=== PATIENT | female | born 1965 | race Caucasian/White ===

== ENCOUNTER 2018-01-12 07:45 | Day surgery (SDC) | payer BC, SELFPAY ==
--- NOTE | 2018-01-12 | COLBX_PTH ---
PATIENT: KEYLA PATEL LOC: EN U#:[id number] AGE/SX: 52/F ROOM: RE01/12/[address]: Dr. Jesus Garcia MD : 1965 BED: DIS: 01/12/2018 SPEC #: [id number] RECD: 01/12/18 13:15 STATUS: VICKI YANY #: [id number] NADIA: 01/12/18 00:[address]: Jesus Garcia DEPT: SURGICAL PATHOLOGY RECD BY: Antolin Jaime ENTERED: 01/12/18 13:15 SP TYPE: COLON BX OT DR: Dr. Carlos Noguera DO Tissues: Cecum, NOS Procedures: Surgery Specimen Level IV HEADER OPERATION: Colonoscopy PRE-OP DIAGNOSIS: Rectal bleeding TISSUE SUBMITTED: Cecal biopsy MICROSCOPIC DIAGNOSIS Cecal biopsy: Fragments of tubular adenoma. SJ:ac 01/15/18 MICROSCOPIC DESCRIPTION Slides are reviewed. GROSS DESCRIPTION Received in fixative is one container labeled with the patient's name and designated cecal biopsy. The specimen consists of multiple irregular fragments of light elder soft tissue that in aggregate measure 1.5 x 0.5 x 0.1 cm. The specimen is totally submitted in one cassette. / SJ:ac 01/12/18 TC:1 CPT: 35741
[2018-01-12 08:04] VITALS: BP 134/82; PULSE 97; RESP 16; TEMP 36.8; O2SAT 93; BMI 27.7
[2018-01-12 09:42] VITALS: BP 134/82; BP 134/84; PULSE 88; RESP 18; TEMP 36.6; O2SAT 98
[2018-01-12 09:45] VITALS: BP 128/78; BP 134/82; PULSE 88; RESP 18; O2SAT 97
--- NOTE | 2018-01-12 09:46 | OP.ENDO_ITS ---
Patient Name: Delmis Damon Procedure Date: 01/12/2018 9:07 AM Date of : 1965 Age: 52 Procedure: Colonoscopy Indications: Rectal bleeding Providers: Jesus Garcia MD Referring MD: Jesus Garcia MD Medicines: See the Anesthesia note for documentation of the administered medications Patient Profile: Last Colonoscopy: February 2013. Complications: No immediate complications. Procedure: Pre-Anesthesia Assessment: - Prior to the procedure, a History and Physical was performed, and patient medications and allergies were reviewed. The patient's tolerance of previous anesthesia was also reviewed. The risks and benefits of the procedure and the sedation options and risks were discussed with the patient. All questions were answered, and informed consent was obtained. Prior Anticoagulants: The patient has taken no previous anticoagulant or antiplatelet agents. ASA Grade Assessment: II - A patient with mild systemic disease. After reviewing the risks and benefits, the patient was deemed in satisfactory condition to undergo the procedure. - Prior to the procedure, a History and Physical was performed, and patient medications and allergies were reviewed. The patient's tolerance of previous anesthesia was also reviewed. The risks and benefits of the procedure and the sedation options and risks were discussed with the patient. All questions were answered, and informed consent was obtained. Prior Anticoagulants: The patient has taken no previous anticoagulant or antiplatelet agents. ASA Grade Assessment: II - A patient with mild systemic disease. After reviewing the risks and benefits, the patient was deemed in satisfactory condition to undergo the procedure. After I obtained informed consent, the scope was passed under direct vision. Throughout the procedure, the patient's blood pressure, pulse, and oxygen saturations were monitored continuously. The colonoscope was introduced through the anus and advanced to the cecum, identified by appendiceal orifice and ileocecal valve. The colonoscopy was technically difficult and complex due to a tortuous colon. Successful completion of the procedure was aided by applying abdominal pressure. The patient tolerated the procedure well. The quality of the bowel preparation was adequate to identify polyps. Scope In: 9:19:16 AM Scope Withdrawal Time 0 hours 10 minutes 15 seconds Scope Out: 9:35:53 AM Total Procedure Duration Time 0 hours 16 minutes 37 seconds Findings: The digital rectal exam findings include non-thrombosed external hemorrhoids, non-thrombosed internal hemorrhoids and internal hemorrhoids that prolapse with straining, but require manual replacement into the anal canal (Grade III). A localized area of moderately nodular mucosa was found in the cecum. Biopsies were taken with a cold forceps for histology. Many diverticula were found in the sigmoid colon. Impression: - Non-thrombosed external hemorrhoids, non-thrombosed internal hemorrhoids and internal hemorrhoids that prolapse with straining, but require manual replacement into the anal canal (Grade III) found on digital rectal exam. - Nodular mucosa in the cecum. Biopsied. - Diverticulosis in the sigmoid colon. Recommendation: - Discharge patient to home. - Resume previous diet. - Repeat colonoscopy in 1 year for surveillance based on pathology results. - Return to my office in 1 week. - Continue present medications. Procedure Code(s): --- Professional --- 67707, Colonoscopy, flexible; with biopsy, single or multiple Diagnosis Code(s): --- Professional --- K64.2, Third degree hemorrhoids K64.4, Residual hemorrhoidal skin tags K63.89, Other specified diseases of intestine K62.5, Hemorrhage of anus and rectum K57.30, Diverticulosis of large intestine without perforation or abscess without bleeding CPT copyright 2017 [employer]. All rights reserved. The codes documented in this report are preliminary and upon motorcycle designer review may be revised to meet current compliance requirements. Jesus Garcia MD 01/12/2018 9:46:18 AM This report has been signed electronically. Number of Addenda: 0 Note Initiated On: 01/12/2018 9:07 AM
[2018-01-12 09:50] VITALS: BP 128/78; BP 134/82; PULSE 81; RESP 18; O2SAT 96
[2018-01-12 09:58] VITALS: BP 130/84; BP 134/82; PULSE 88; RESP 18; TEMP 36.7; O2SAT 98
[2018-01-12 10:09] VITALS: BP 134/82
== END 2018-01-12 10:17 | disposition home or self-care (01) ==
LOC: EN 07:46 → AC 08:33
PROVIDERS: Family Provider Family Medicine; PCP Family Medicine; Visit Provider Surgery
PROC: 0DJD8ZZ Inspection of Lower Intestinal Tract, Via Natural or Artificial Opening Endoscopic (ICD-10-PCS; CPT 45378; principal; 2018-01-12 08:40)
DX: D12.0 Benign neoplasm of cecum (principal); K62.5 Hemorrhage of anus and rectum; K64.2 Third degree hemorrhoids; K64.4 Residual hemorrhoidal skin tags; K63.89 Other specified diseases of intestine; K57.30 Diverticulosis of large intestine without perforation or abscess without bleeding
CPT/HCPCS: 45380; 88305; J7120

== ENCOUNTER 2018-02-05 08:54 | Inpatient (IN) | payer BC, SELFPAY ==
[2018-01-29 11:27] VITALS: BP 139/91; PULSE 97; RESP 16; TEMP 36.4; O2SAT 96; BMI 28.5
--- NOTE | 2018-01-29 11:32 | SDCEKG_ITS ---
Test Reason : Blood Pressure : / mmHG Vent. Rate : 079 BPM Atrial Rate : 079 BPM P-R Int : 156 ms QRS Dur : 088 ms QT Int : 348 ms P-R-T Axes : 045 005 018 degrees QTc Int : 399 ms Sinus rhythm with marked sinus arrhythmia Possible Left atrial enlargement Nonspecific T wave abnormality Poor R wave progression Abnormal ECG Confirmed by OLENA ELENA, BARB ([id number]), associate entertainment editor JOSE LOCKHART ([id number]) on 02/01/2018 11:34:22 AM Referred By: Jesus Garcia Confirmed By:BARB HYATT MD
[2018-01-29 12:03] LABS: Hematocrit 41.1 % (37-47); Mean Corp Hgb Conc 31.6 g/gl (32-36); Mean Corpuscular Hgb 29.5 pg (27.0-32.0); Mean Corpuscular Volume 93.4 fL (81-99); Mean Platelet Vol. 11.3 fl (6.2-12.0); Platelet Count 292 K/mm3 (150-450); RBC Distribution Width CV 13.8 % (11.6-14.6); RBC Distribution Width SD 45.8 fl (35.1-43.9); Scan Indicated on CBC? Y/N NO; White Blood Count 6.2 K/mm3 (4.4-11.0)
[2018-01-29 12:28] LABS: Anion Gap 7 (5-15); BUN 22 mg/dL (7-18); BUN/Creat Ratio 30.1 RATIO (10-20); Chloride 110 mmol/L (98-107); Creatinine, Serum 0.73 mg/dL (0.55-1.02); EST Glomerular Filtration Rate 88 mL/min (>60); Est Glom Filt Rate - Afr Amer 106 mL/min (>60); Estimated Creatinine Clearance 82.47 ml/min; Glucose 91 mg/dL (74-106); Potassium 4.2 mmol/L (3.5-5.1); Sodium Level 143 mmol/L (136-145)
[2018-02-05] VITALS (11 sets, daily range): BP systolic 117–157; BP diastolic 73–101; PULSE 82–106; RESP 16–18; TEMP 36.5–37.6; O2SAT 95–100; BMI 28.5
--- NOTE | 2018-02-05 | COL_PTH ---
PATIENT: KEYLA PATEL LOC: MS2 U#:[id number] AGE/SX: 52/F ROOM: MS210 RE02/05/[address]: Dr. Jesus Garcia MD : 1965 BED: 1 DIS: 02/06/2018 SPEC #: [id number] RECD: 02/05/18 12:12 STATUS: VICKI REGio #: [id number] NADIA: 02/05/18 00:[address]: Jesus Garcia DEPT: SURGICAL PATHOLOGY RECD BY: Denise Cuevas ENTERED: 02/05/18 14:27 SP TYPE: COLON OTHR DR: Dr. Carlos Noguera, DO Tissues: A - Right colon B - TISSUE SURGICALLY REMOVED Procedures: Surgery Specimen Level III Surgery Specimen Level V HEADER OPERATION: Laparoscopic right hemicolectomy PRE-OP DIAGNOSIS: Non-colonoscopic resectable polyp of colon TISSUE SUBMITTED: A - Right colon sent fresh to lab for evaluation at 1207, B - Staple line MICROSCOPIC DIAGNOSIS A. Right colon, hemicolectomy: Tubular adenomas, multiple (nine), largest measuring 2.5 cm in greatest dimension. 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 Seven pericolonic lymph nodes, no pathologic diagnosis. Appendix - pigment laden macrophages consistent with melanosis coli. B. Staple line: Colonic tissue with pigment laden macrophages consistent with melanosis coli. Small intestinal mucosa, no pathologic diagnosis. SJ:ac 02/07/18 MICROSCOPIC DESCRIPTION Slides are reviewed. GROSS DESCRIPTION A - Received fresh for intraoperative consultation labeled with the patient's name is a specimen designated right colon. The specimen consists of a right hemicolectomy specimen consisting of cecum with ascending colon with attached adipose tissue, segment of small intestine and appendix. The cecum with ascending colon measures 12.5 cm in length. The small intestine measures 6.5 cm in length and appendix measures 8 cm in length and 0.5 cm in diameter. Both resection margins are stapled. The lumen shows multiple sessile polyps. The largest polyp is in the cecum and measures 2.5 x 1 cm. This information is conveyed to the surgeon intraoperatively. The most distal polyp is 5.5 cm away from the distal resection margin. The mucosa shows brownish discoloration. Sections of the appendix reveal pinpoint lumen. Smaller polyps measure 0.3 to 1.5 cm in greatest dimension. The polyp appears to be mucosal in location. Sections of the pericolonic adipose tissue reveal multiple lymph nodes. The largest lymph node measures 1 cm in greatest dimension. Weapons Specialist sections are submitted as follows: 1 - appendix, 2 - proximal and distal resection margins, 3 & 4 - largest polyp, 5 - one polyp adjacent to the largest polyp in the cecum, 6 - one bisected polyp, 7 - multiple polyps (possible five), 8 - most distal polyp, 9 - graphic art sales representative section of small, large intestine and ileocecal valve, 10 - multiple lymph nodes, 11 - one serially sectioned lymph node, 12 - one bisected lymph node. / ADRIAN:ac 02/06/18 B - Received in fixative is one container labeled with the patient's name and designated staple line. The specimen consists of a donut-shaped piece of bowel tissue measuring 4 x 1 x 1 cm. A few sutures are noted. Weapons Specialist sections are submitted in one cassette. / ADRIAN:ac 02/05/18 TC:1 CPT: 41580, 77249, 19259
[2018-02-05] MEDS: Gabapentin 600 MG Tablet PO (09:23)
[2018-02-05] MEDS: Acetaminophen 500 MG Tablet 1000 MG PO ×3 (09:23→23:53)
[2018-02-05 09:41] LABS: Bedside Glucose 206 mg/dL (70-110)
[2018-02-05] MEDS: Insulin Lispro 100 UNIT/ML INSULN.PEN SC (10:14)
[2018-02-05] MEDS: Lidocaine/D5W 2,000 MG/250 ML IV.SOLN 24.03 MG IV (10:50)
--- NOTE | 2018-02-05 10:54 | DCINST_ITS ---
<Jesus Garcia - Last Filed: 02/05/18 10:54> Discharge Diet: Light diet - advance as tolerated - if you have questions about your diet instructions, please talk to you doctor. Discharge Activity: May Not Drive - for 1 week or while taking narcotic pain medicine. May shower in (days): 1 Lifting Restrictions: 10 pounds Call your doctor if your incision/area has: Continuous Slow Oozing, Sudden Increased Bleeding, Increased Pain/ Swelling, Increased Redness, Foul Smelling Discharge Call your doctor if you observe: Fever of 101 or Higher Suture Line Care: Avoid Pulling/Pushing, Avoid Pinching/Bending Additional Dressing/Incision Instructions:: Change or remove dressing in 4 days. Leave steri-strips in place for 1 week. Allergies/Adverse Reactions: Allergies No Known Allergies Allergy (Verified 01/09/18 11:27) Medications to take at Discharge amitriptyline 10 mg tablet 10 mg PO QHS 03/28/17 cyclobenzaprine 10 mg tablet 10 mg PO ONCE PRN tab 03/28/17 duloxetine 60 mg capsule,delayed release 120 mg PO QDAY cap 03/28/17 eszopiclone 2 mg tablet 2 mg PO QHS 03/28/17 meloxicam 15 mg tablet 15 mg PO DAILY 03/28/17 Docusate Sodium [Stool Softener] 200 mg PO BID 04/06/17 Gabapentin [Neurontin] 300 mg PO TID 01/29/18 Omeprazole [Prilosec] 20 mg PO BID 01/29/18 Oxycodone [Oxyir] 5 mg PO Q6H PRN PRN 3 Days #10 tablet 02/06/18 The following prescriptions were given: Oxycodone [Oxyir] 5 mg PO Q6H PRN PRN 3 Days #10 tablet PRN Reason: Mod-Severe Pain (4-10/10) Primary Care Physician: Carlos Noguera DO [Primary Care Provider] - Test Results: Test results from this visit will be discussed in further detail at your follow- up appointment, if applicable. Please Follow Up With: Jesus Garcia MD - [phone] When: Call to make an appointment to be seen in about 10 days. <Sonja Christy - Last Filed: 02/06/18 15:48> Discharge Diet: Light diet - advance as tolerated - Transitional diet as instructed Test Results: Test results from this visit will be discussed in further detail at your follow- up appointment, if applicable.
[2018-02-05] MEDS: Bupivacaine 0.5% PF 10 ML VIAL (13:17)
[2018-02-05] MEDS: BUPIVACAINE LIPOSOME/PF 20 ML VIAL OPERA.SITE (13:23)
--- NOTE | 2018-02-05 13:25 | PCM.OPRPT ---
Problem List (1) Polyp of cecum Status: Acute Report of Operation Date of Procedure: 02/05/18 Pre-Operative Diagnosis: Non-endoscopically resectable cecal polyps Post-Operative Diagnosis: Same Surgery/Procedure Performed:: Laparoscopic right colectomy Description of Surgical Findings:: Timeout informed consent was obtained. 52-year-old female was taken the operative room. She was placed supine on the table. She underwent general endotracheal intubation anesthesia. The abdomen prepped and draped. Throughout the procedure Exparel diluted with 60 cc of saline was used for a bilateral tap block. 0.25% Marcaine was additionally used as local anesthetic. A supraumbilical vertical incision was created. Sharp dissection carried down through the subcutaneous tissue direct access was gained through the peritoneum 10mm trocar inserted. The abdomen was insufflated with CO2 to pressure of 10 mmHg pressure. 5-minute trochars were placed in the epigastrium and in the right lower quadrant. Inspection revealed abundant adhesions of the right colon to the infrahepatic liver secondary to previous laparoscopic cholecystectomy. There were adhesions of omentum to the right anterior anterior abdominal wall. These adhesions were transected using Harmonic. Then the ileocolonic vessels were addressed. Dissection was performed in that location placed in the ileocolic vessels on stretch I did that with harmonic scalpel. I then identified the vessels I secured them twice proximally and once distally with extra-large Hem-o-ashley clips. I then transected them with the harmonic scalpel at high setting. I then completely elevated the ascending colon by incising along the white line of Toldt. I had to aggressively free the proximal transverse colon from the undersurface of the liver. And so doing the duodenal sweep was identified. I had the entire hepatic flexure freed and mobile. I then put a noncrushing grasper from the cecum. I lengthened the supraumbilical incision to allow for placement of a small wound protector. I exited the bowel at that point. I completed the transection of the terminal ileum and distal ascending colon mesentery with a normal scalpel. I used a SEVERO-75 stapler to transect the terminal ileum and the transverse colon. I placed him in a [id number] fashion secured that with interrupted 4-0 silk created enterotomies inserted the SEVERO-75 stapler and performed a [id number]-[id number] anastomosis. I then performed a stapled enterotomy closure with a TA 60. There was some question as to the validity that staple line appeared to be intact I reinforced it at one end where there was a small defect in the mucosa with a running inverting 3-0 chromic. I then inverted the entire staple line with a running 4-0 silk Lembert suture. I placed a piece of omentum overlying and used interrupted 4-0 silk as a patch of omentum over top the anastomotic area. It all appeared to be viable and intact. Both the small bowel and the large bowel quite unremarkable. During the enterotomy that was very minimal soilage which could be aspirated free. The bowel was placed back within the abdomen and night reinsufflated taking great care to look at the anastomosis that appeared to be nicely intact. I then performed a bilateral tap block using the Exparel 20 cc mixed with 60 cc of saline and then I added the remainder of the 0.25% Marcaine. A bilateral tap block was carefully performed under laparoscopic visualization. I then reinspected the colon. Excess fluid was irrigated and aspirated free. Blood loss was minimal and there was no bleeding. Trochars removed under visualization and the abdomen was allowed to deflate of CO2. The abdomen was redraped gowns and gloves were changed. The midline wound was closed with a running #1 PDS. Wound edges were approximated interrupted and running septic or 4-0 Monocryl. Steri-Strips Telfa OpSite dressings applied. Sponge and instrument and needle counts were reported to the surgeon to be correct. Specimen includes right colon. Pathology demonstrated the polyps to be present. Drains none. Blood loss minimal. The patient was taken to the recovery area in satisfactory condition without apparent complication Jesus Garcia M.D., F.A.C.S. Type of Anesthesia:: General Anesthesiologist: Orly Aguero
[2018-02-05 14:25] LABS: Bedside Glucose 143 mg/dL (70-110)
[2018-02-05 15:01] LABS: Absolute Lymphocyte Count 0.76 X10^3/ul (0.83-4.51); Absolute Neutrophil Count 11.3 X10^3/uL (2.0-7.7); Basophil# 0.02 X10^3/uL; Basophil% 0.2 % (0-1); Eosinophil# 0.02 X10^3/uL; Eosinophils% 0.2 % (0-5); Hematocrit 42.2 % (37-47); Hemoglobin 13.5 g/dl (12.0-15.0); Lymphocyte # 0.76 X10^3/ul (4.0); Lymphocyte % 6.1 % (19-41); Mean Corpuscular Hgb 29.7 pg (27.0-32.0); Mean Corpuscular Volume 92.7 fL (81-99); Mean Platelet Vol. 11.5 fl (6.2-12.0); Monocyte# 0.31 X10^3/uL; Monocyte% 2.5 % (0-10); Neutrophil # 11.28 X10^3/uL (2.7-7.7); Neutrophil % 90.8 % (47-70); Platelet Count 288 K/mm3 (150-450); RBC Distribution Width CV 13.8 % (11.6-14.6); RBC Distribution Width SD 45.7 fl (35.1-43.9); Red Blood Count 4.55 M/mm3 (4.2-5.4); White Blood Count 12.4 K/mm3 (4.4-11.0)
[2018-02-05 15:12] LABS: POSITIVE COUNT NO; POSITIVE DIFFERENTIAL NO; POSITIVE MORPHOLOGY NO
[2018-02-05] MEDS: HYDROmorphone 0.5 MG/0.5 ML SYRINGE IV (16:54)
[2018-02-05] MEDS: Gabapentin 300 MG Capsule PO ×2 (18:32→22:04)
[2018-02-05] MEDS: oxyCODONE 5 MG Tablet PO (18:34)
[2018-02-05] MEDS: Ketorolac 15 MG/ML Vial IV (20:18)
[2018-02-05] MEDS: Zolpidem Tartrate 5 MG Tablet PO (22:04)
[2018-02-05] MEDS: Docusate Sodium 100 MG Capsule PO (22:04)
[2018-02-05] MEDS: Amitriptyline 10 MG Tablet PO (22:04)
[2018-02-05] MEDS: Pantoprazole Sodium 20 MG Tablet PO (22:05)
[2018-02-05] MEDS: Mag Hydrox/Al Hydrox/Simeth 30 ML UDC PO (22:34)
[2018-02-05] MEDS: Lactated Ringers 1,000 ML 40 ML IV (23:15)
[2018-02-06 01:45] VITALS: BP 126/82; PULSE 100; RESP 18; TEMP 36.3; O2SAT 96
[2018-02-06] MEDS: Ketorolac 15 MG/ML Vial IV ×3 (01:47→14:21)
[2018-02-06 05:35] LABS: Hematocrit 39.3 % (37-47); Hemoglobin 12.4 g/dl (12.0-15.0); Mean Corp Hgb Conc 31.6 g/gl (32-36); Mean Corpuscular Hgb 29.9 pg (27.0-32.0); Mean Corpuscular Volume 94.7 fL (81-99); Platelet Count 248 K/mm3 (150-450); RBC Distribution Width CV 13.8 % (11.6-14.6); RBC Distribution Width SD 45.5 fl (35.1-43.9); Red Blood Count 4.15 M/mm3 (4.2-5.4); White Blood Count 7.4 K/mm3 (4.4-11.0)
--- NOTE | 2018-02-06 05:45 | PCM.PN.SRG ---
Patient Problems: Active and Suspected Problems (Last Reviewed 01/02/18 @ 14:57 by Sulma Marinelli) Polyp of cecum (Acute) Subjective: Heartburn, no flatus, no nausea, more comfortable - Physical Exam Lungs: Clear to auscultation Abdomen: Soft, Bowel Sounds Not Present, Distended Vital Signs Temp Pulse Resp BP Pulse Ox 97.4 F L 100 18 126/82 H 96 02/06/18 01:45 02/06/18 01:45 02/06/18 01:45 02/06/18 01:45 02/06/18 01:45 Oxygen Flow Rate (L/min) 3 Oxygen Delivery Method Nasal Cannula Weight: 176 lb 9.444 oz Body Mass Index (BMI) 28.5 Finger Stick Blood Glucose 143 Intake and Output for Last 24 Hours 02/04/18 02/05/18 02/06/18 23:59 23:59 23:59 Intake Total 400 / 400 1115 / 1115 Balance 400 / 400 1115 / 1115 Laboratory Tests Past 24 Hrs 02/05/18 02/06/18 02/06/18 14:32 05:05 05:05 WBC 12.4 H Pending RBC 4.55 Pending Hgb 13.5 Pending Hct 42.2 Pending MCV 92.7 Pending MCH 29.7 Pending MCHC 32.0 Pending RDW 13.8 Pending RDW Differential 45.7 H Pending Plt Count 288 Pending MPV 11.5 Immature Gran % (Auto) 0.200 Neut % (Auto) 90.8 H Lymph % (Auto) 6.1 L Evangeline % (Auto) 2.5 Eos % (Auto) 0.2 Baso % (Auto) 0.2 Absolute Neuts (auto) 11.3 H Absolute Lymphs (auto) 0.76 L Total Counted Not Reportable Sodium Pending Potassium Pending Chloride Pending Carbon Dioxide Pending Anion Gap Pending BUN Pending Creatinine Pending Est GFR (MDRD) Af Amer Pending Est GFR (MDRD) Non-Af Pending BUN/Creatinine Ratio Pending Glucose Pending Calcium Pending POC Glucose 02/05/18 02/05/18 14:20 09:17 POC Glucose 143 H 206 H Medical Necessity - Tobacco Use Smoking Status: Former smoker Assessment/Plan All Active Problems (Last Reviewed 01/02/18 @ 14:57 by Sulma Duran Polyp of cecum (Acute) Rectal bleeding (Acute) Ladd esophagus (Acute) GERD with esophagitis (Acute) Dysuria (Acute) Neuralgia (Acute) Lumbar disc disorder (Acute) Neck pain (Acute) Osteoarthritis (Acute) Tarsal tunnel syndrome (Acute) Hypokalemia (Acute) Hx of tubal ligation (Acute) S/P partial hysterectomy (Acute) History of surgical removal of ganglion cyst (Acute) History of esophagogastroduodenoscopy (EGD) (Acute) S/P cholecystectomy (Acute) History of back surgery (Acute) S/P colonoscopy (Acute) Hx of spinal fusion (Acute) Need to mobilize Steady progress
[2018-02-06 05:51] LABS: Anion Gap 6 (5-15); BUN 15 mg/dL (7-18); BUN/Creat Ratio 13.5 RATIO (10-20); Calcium,Total 8.2 mg/dL (8.5-10.1); Chloride 101 mmol/L (98-107); Creatinine, Serum 1.11 mg/dL (0.55-1.02); EST Glomerular Filtration Rate 54 mL/min (>60); Est Glom Filt Rate - Afr Amer 66 mL/min (>60); Estimated Creatinine Clearance 54.24 ml/min; Glucose 113 mg/dL (74-106); Potassium 3.8 mmol/L (3.5-5.1); Sodium Level 139 mmol/L (136-145)
[2018-02-06] MEDS: Lactated Ringers 1,000 ML 40 ML IV (05:56)
[2018-02-06] MEDS: Mag Hydrox/Al Hydrox/Simeth 30 ML UDC PO (05:57)
[2018-02-06] MEDS: oxyCODONE 5 MG Tablet PO ×3 (05:57→18:37)
[2018-02-06] MEDS: Acetaminophen 500 MG Tablet 1000 MG PO ×3 (05:57→18:38)
[2018-02-06] MEDS: Gabapentin 300 MG Capsule PO ×2 (05:57→14:21)
[2018-02-06 06:25] LABS: Scan Indicated on CBC? Y/N NO
[2018-02-06 08:00] VITALS: BP 132/76; PULSE 103; RESP 16; TEMP 36.6; O2SAT 95
[2018-02-06 08:30] VITALS: O2SAT 95
[2018-02-06] MEDS: Docusate Sodium 100 MG Capsule PO (10:38)
[2018-02-06] MEDS: DULoxetine Hcl 60 MG Capsule 120 MG PO (10:38)
[2018-02-06] MEDS: Enoxaparin 40 MG/0.4 ML Syringe SC (10:39)
[2018-02-06] MEDS: Pantoprazole Sodium 20 MG Tablet PO (10:39)
--- NOTE | 2018-02-06 13:16 | CASEMGMT ---
RN CM Assessment. PCP: Dr. Noguera Pharmacy: [facility] Living arrangements: Home with her DME: none DC Plan: home on dc.
[2018-02-06 14:22] VITALS: BP 121/71; PULSE 89; RESP 16; TEMP 36.8; O2SAT 99
[2018-02-06 15:03] VITALS: BP 128/74; PULSE 82; RESP 16; TEMP 36.7; O2SAT 96
[2018-02-06 18:30] VITALS: BP 124/67; PULSE 88; RESP 16; TEMP 36.7; O2SAT 97
== END 2018-02-06 18:51 | disposition home or self-care (01) | DRG 331 ==
PROVIDERS: Admitting Provider Surgery; Family Provider Family Medicine; PCP Family Medicine; Referring Provider Surgery; Visit Provider Surgery
PROC: 0DTF4ZZ Resection of Right Large Intestine, Percutaneous Endoscopic Approach (ICD-10-PCS; CPT 44205; principal; 2018-02-05 10:40)
DX: D12.0 Benign neoplasm of cecum (principal); Z23 Encounter for immunization
CPT/HCPCS: 36415; 80048; 82962; 85025; 85027; 88304; 88305; 88307; 93005; 94762; J7050; J7120; 90686; A4216; J2405

== ENCOUNTER 2022-09-16 13:21 | Emergency (ER) | payer MEDICARE, SELFPAY ==
[2022-09-16 13:23] VITALS: BP 151/83; PULSE 76; RESP 16; TEMP 36.7; O2SAT 98; BMI 18.1
[2022-09-16 13:31] VITALS: O2SAT 96
--- NOTE | 2022-09-16 13:37 | CT_ITS ---
STUDY: CT ABDOMEN AND PELVIS WITH CONTRAST REASON FOR EXAM: Female, 57 years old. Nausea, vomiting, night sweats, guarding. PARTIAL HYSTER,JETT RADIATION DOSAGE (If Supplied By Facility): CTDIvol = ( 15.21 ) mGy, DLP = ( 1121.40 ) mGycm TECHNIQUE: Transaxial images were obtained from the dome of the diaphragm to the symphysis pubis without oral contrast. IV 100mL Isovue-370 was administered. Sagittal and coronal images were reconstructed. Individualized dose optimization techniques were used for this CT. COMPARISON: Comparison is made with prior study dated September 18, 2012. FINDINGS: The visualized lung bases are unremarkable. The visualized portions of the heart are within normal limits. There is decreased attenuation of the liver consistent with steatosis. 2.6 cm x 1.5 cm cyst in the peripheral lateral aspect of the posterior right lobe of the liver. There are surgical clips in the gallbladder fossa consistent with a prior cholecystectomy. Normal spleen. Normal pancreas. Normal bilateral adrenal glands. Normal right kidney. Normal left kidney. There is a moderate-sized hiatal hernia composed mostly of the fundus of the stomach. Normal small intestine. The patient is status post partial right hemicolectomy. The anastomosis is unremarkable. Scattered sigmoid diverticula. There is non-visualization of the appendix. There is scattered atherosclerotic calcification of the abdominal aorta, without a demonstrated aneurysm. Normal inferior vena cava. Normal retroperitoneum. Normal urinary bladder. There is absence of the uterus consistent with a prior hysterectomy. Normal abdominal wall. Exaggerated lumbar lordosis. Laminectomy and fusion at the L3-L4 L4-L5 and L5-S1 levels. Irregular inferior endplate of the L5 vertebrae. CT/Abdomen/Pelvis W IV Cont ONLY IMPRESSION: Diffuse fatty infiltration. Status post cholecystectomy. Partial right hemicolectomy. Electronically Signed: Jose Luis Cohen MD at 14:30 EDT ,
--- NOTE | 2022-09-16 13:40 | EDS_ITS ---
HPI History of Present Illness Chief Complaint: Nausea/Vomiting Detail of Chief Complaint: Abdominal pain with nausea and vomiting Informant: patient and spouse/S.O. Onset/Context/Timing Onset: Today (Nausea and vomiting started today) Context: Sudden Onset Timing: Continuous Quality: Pain Location: Predominantly upper abdomen Current Severity: Mild Maximum Severity: Severe Worsened by: Palpation Relieved by: Nothing Associated Symptoms Associated Symptoms: Diaphoresis Narrative Narrative: Patient is a 57-year-old woman who underwent a right colectomy due to nonresectable cecal polyp [place] [address] Jesus Garcia. She recently has had night sweats. She denies weight loss or weight gain. She denies increased abdominal girth. She denies intolerance to greasy or fried foods. She is status post cholecystectomy. She denies black or maroon-colored stool. Last bowel movement was yesterday. She denies change in color, consistency or calib er of her stool. She states she is scheduled for an outpatient CAT scan because of concern for renal tumors. Patient denies headache, visual, ocular auditory symptoms. Patient denies cardiac or respiratory symptoms. Patient's had colonoscopy and right hemicolectomy with Dr. Waters. He has had back surgery for fusion. Also status post bilateral tubal ligation Prior similar symptoms: No Recent Illness/Hospitalization: Yes [facility] Medical History (Updated 09/16/22 @ 14:[address] Lowell Caballero MD) Ladd esophagus Ladd's esophagus Chiari malformation Dysuria GERD with esophagitis History of fibromyalgia History of IBS Hypokalemia Internal hemorrhoids Lumbar disc disorder Neck pain Neuralgia Osteoarthritis Rectal bleeding Tarsal tunnel syndrome Home Medications amitriptyline 10 mg tablet 10 mg PO QHS sleep 03/28/17 [History Last Taken Unknown] cyclobenzaprine 10 mg tablet 10 mg PO ONCE PRN arthritis 03/28/17 [History Last Taken Unknown] duloxetine 60 mg capsule,delayed release 120 mg PO QDAY depression/pain 03/28/17 [History Last Taken Unknown] eszopiclone 2 mg tablet 2 mg PO QHS sleep 03/28/17 [History Last Taken Unknown] meloxicam 15 mg tablet 15 mg PO DAILY pain 03/28/17 [History Last Taken ] docusate sodium 50 mg capsule 200 mg PO BID stool softner 04/06/17 [History Last Taken Unknown] gabapentin 300 mg capsule 300 mg PO TID pain 01/29/18 [History Last Taken Unknown] omeprazole 20 mg capsule,delayed release 20 mg PO BID gerd 01/29/18 [History Last Taken 02/05/18 08:00] ondansetron 4 mg disintegrating tablet 4 mg PO Q8H PRN PRN Nausea #10 tabs 09/16/22 [Rx Last Taken Unknown] Allergy/AdvReac Type Severity Reaction Status Date / Time No Known Allergies Allergy Verified 09/16/22 13:28 Family History Mother Hypertension Father Degeneration of intervertebral disc Hypertension Surgical History (Updated 09/16/22 @ 14:[address] Lowell Caballero MD) History of back surgery History of esophagogastroduodenoscopy (EGD) History of surgical removal of ganglion cyst Hx of spinal fusion Hx of tubal ligation S/P cholecystectomy S/P colonoscopy S/P partial hysterectomy Social History (Updated 09/16/22 @ 13:[address] Lowell Caballero MD) household members: spouse Smoking Status: Former smoker quit status: considering quitting alcohol intake: current alcohol intake frequency: a few times a week substance use type: does not use caffeine: Yes what type of physical activity do you participate in: walking and weight training frequency: 1-2 times per week seatbelt use: always ROS ROS ED Constitutional Constitutional ED: Reports sweats; Denies chills, fever(s), subjective or weight loss Eyes Eyes: Denies blurry vision, change in vision or diplopia ENT ENT ED: Denies ear pain, rhinorrhea or sore throat Cardiovascular Cardiovascular: Denies chest pain or palpitations Respiratory/Chest Respiratory/Chest: Denies cough, dyspnea or dyspnea on exertion Gastrointestinal Gastrointestinal: Reports abdominal pain, nausea and vomiting; Denies constipation, diarrhea or melena Genitourinary Genitourinary ED: Denies dysuria, hematuria or urinary frequency Musculoskeletal Musculoskeletal: Denies arthralgias, back pain, myalgias or neck pain Integumentary Denies rash Neurologic Neurologic: Denies headache(s) or paresthesias Psychiatric Psychiatric: Denies anxiety or depression Endocrine Endocrinology: Denies cold intolerance, heat intolerance, polydipsia or polyuria Hematologic/Lymphatic Hematologic/Lymphatic: Reports systems reviewed and no addt'l complaints, except as documented EXAM Physical Exam Const Vital Signs: 09/16/22 13:23 09/16/22 13:31 09/16/22 14:29 Temperature 98.1 F Temperature Source Oral Pulse Rate 76 72 Respiratory Rate 16 14 Respiratory Effort Short of Breath Respiratory Depth Normal Respiratory Pattern Normal Blood Pressure 151/83 H 172/90 H Blood Pressure Mean 105 117 Pulse Ox 98 97 Oxygen Delivery Method Room Air Room Air 09/16/22 14:30 Temperature Temperature Source Pulse Rate Respiratory Rate Respiratory Effort Respiratory Depth Respiratory Pattern Blood Pressure 146/94 H Blood Pressure Mean 111 Pulse Ox Oxygen Delivery Method Positive well nourished, well developed and obese Constitutional Narrative: There is acral cyanosis/cyanosis of her feet. Capillary refill is delayed. There is a palpable DP pulse. Patient appears pale. She is in obvious discomfort. General Appearance ED: well developed, diaphoretic and pallor; Negative for NAD Nutritional Appearance: obese HEENT Reports dry mucous membranes HEENT Narrative: Head is atraumatic and normocephalic. Ears are normal. Nares are patent. Posterior pharynx unremarkable. Mouth ED: Yes dry mucous membranes Mouth: dry mucous membranes Eyes PERRL and EOMs intact bilaterally General Eye ED: Negative for pale conjunctiva or scleral icterus Neck no lymphadenopathy, supple and no JVD Chest Wall inspection of chest normal and palpation of chest normal Resp normal respiratory effort and clear to auscultation bilaterally Cardio regular rate, regular rhythm, S1 normal heart sound, S2 normal heart sound and no murmurs GI no masses; Negative for non-tender, non-distended or hepatosplenomegaly Auscultation: hypoactive bowel sounds Palpation: tender other (Diffuse least tender is left lower quadrant.) and guarding LUQ and RUQ; Negative for splenomegaly, mass or rebound tenderness present Back/Spine no CVA tenderness Back/Spine Narrative: Well-healed midline surgical scar noted. Extremity Negative for normal to inspection Extremity Narrative: Cyanosis of the feet with delayed capillary refill. Patient denies claudication symptoms. General Extremety ED: Negative for edema or tenderness General Extremity: Negative for edema Neuro oriented x3, CN's II-XII intact bilaterally and no sensory deficits noted Sensorium / Orientation: alert Psych mental status grossly normal Skin no rashes or lesions noted, no wounds and No skin turgor normal Skin Narrative: Diaphoretic. General Skin Exam: pallor; Negative for jaundice MDM MDM MDM Narrative Medical decision making narrative: Prior records authored by Dr. Waters and surgical physician teacher assistant were reviewed. Patient polyp was not malignant. There is no blood work available through [facility] since 2017. Since patient appears in discomfort with nausea and vomiting CT of the abdomen and pelvis was ordered with IV contrast. She was treated with Zofran and morphine for her nausea/vomiting and pain. Appropriate blood work was obtained to assess H&H white count differential. Renal function prior to CT with IV contrast as well as electrolytes and anion gap. Since she has significant tenderness in the upper quadrants hepatic and lipase was ordered as well. History & Record Review Additional record(s) reviewed:: Prior inpatient record, Prior outpatient record, Prior ED visit and Prior labs (Patient had blood work through [facility] on August 26. AST ALT and alk phos were elevated. CBC was unremarkable. BUN and creatinine were normal with a creatinine of 0.82.) Lab Data Attestation: I reviewed the patient's lab results. Lab results narrative: BMP is remarkable for elevated BUN to creatinine ratio of 23:1. BUN is 24 with a creatinine of 1.02 and GFR 59. AST ALT and alk phos are elevated which they were a month ago. Lipase is normal. CBC is pending. CAT scan is pending. ([id number]) Labs: Laboratory Results - last 24 hr 09/16/22 13:50 Sodium 141 Potassium 4.1 Chloride 108 H Carbon Dioxide 28.0 Anion Gap 5 BUN 24 H Creatinine 1.02 Estim Creat Clear Calc 47.81 Est GFR (MDRD) Af Amer 71 Est GFR (MDRD) Non-Af 59 L BUN/Creatinine Ratio 23.5 H Glucose 102 Calcium 9.5 Total Bilirubin 0.60 Direct Bilirubin 0.16 AST 62 H ALT 92 H Alkaline Phosphatase 158 H Total Protein 7.9 Albumin 3.9 Globulin 4.0 Lipase 27 Radiography Diagnostic Testing: Clinical Impression(s) from Imaging Studies Abdomen/Pelvis CT 09/16/22 13:37 IMPRESSION: Diffuse fatty infiltration. Status post cholecystectomy. Partial right hemicolectomy. Electronically Signed: Jose Luis Cohen MD at 14:30 EDT , Treatment and Re-Evaluation :: Patient was reassessed and informed of her laboratory results. Patient is no longer diaphoretic or pale. There is no cyanosis of her feet. She is no longer vomiting. Patient was told there are no tumors in her kidney. The reason her liver enzymes were elevated/are elevated is because of fatty liver. Discharge Plan Triage Chief Complaint: Nausea/Vomiting Other Complaint: Shortness of Breath ED Provider: oLwell Caballero Dx/Rx/DC Orders Clinical Impression: Acute generalized abdominal pain, Nausea & vomiting, Fatty liver, Elevated liver transaminase level, Status post right hemicolectomy Instructions: Nonalcoholic Fatty Liver ..., ED Vomiting (Adult) Prescriptions: New ondansetron [ondansetron] 4 mg tablet,disintegrating 4 mg PO Q8H PRN PRN (Reason: Nausea) Qty: 10 0RF No Action amitriptyline 10 mg tablet 10 mg PO QHS cyclobenzaprine 10 mg tablet 10 mg PO ONCE PRN (Reason: arthritis) duloxetine 60 mg capsule,delayed release(DR/EC) 120 mg PO QDAY eszopiclone 2 mg tablet 2 mg PO QHS meloxicam 15 mg tablet 15 mg PO DAILY docusate sodium 50 MG capsule 200 mg PO BID gabapentin 300 MG capsule 300 mg PO TID omeprazole 20 MG capsule 20 mg PO BID Primary Care Provider: Jesus Whiting Referrals: Jesus Whiting DO [Primary Care Provider] - 3-5 Days Disposition Disposition: Home, Self Care
[2022-09-16] MEDS: Ondansetron 4 MG/2 ML Vial IV (13:48)
[2022-09-16] MEDS: 0.9% Normal Saline 1,000 ML 1000 ML IV (13:48)
[2022-09-16] MEDS: Morphine 4 MG/ML Syringe IV (13:48)
[2022-09-16 14:19] LABS: AST(SGOT) 62 U/L (15-37); Alanine Aminotransfer ALT/SGPT 92 U/L (13-56); Albumin, Serum 3.9 g/dL (3.2-5.0); Alkaline Phosphatase 158 U/L (45-117); Anion Gap 5 (5-15); BUN 24 mg/dL (7-18); BUN/Creat Ratio 23.5 RATIO (10-20); Bilirubin, Direct 0.16 mg/dL (0.00-0.30); Calcium,Total 9.5 mg/dL (8.5-10.1); Chloride 108 mmol/L (98-107); Creatinine, Serum 1.02 mg/dL (0.55-1.02); EST Glomerular Filtration Rate 59 mL/min (>60); Est Glom Filt Rate - Afr Amer 71 mL/min (>60); Estimated Creatinine Clearance 47.81 ml/min; Glucose 102 mg/dL (74-106); Lipase 27 U/L (13-75); Potassium 4.1 mmol/L (3.5-5.1); Protein, Total 7.9 g/dL (6.4-8.2); Sodium Level 141 mmol/L (136-145)
[2022-09-16 14:29] VITALS: BP 172/90; PULSE 72; RESP 14; O2SAT 97
[2022-09-16 14:30] VITALS: BP 146/94
[2022-09-16 14:44] LABS: Lactic Acid 1.4 mmol/L (0.4-1.9)
== END 2022-09-16 15:09 | disposition home or self-care (01) ==
PROVIDERS: Emergency Provider Emergency Medicine; PCP Preventive Medicine Occupational Medicine; Visit Provider Emergency Medicine
DX: R11.2 Nausea with vomiting, unspecified (principal); R74.01 Elevation of levels of liver transaminase levels; K76.0 Fatty (change of) liver, not elsewhere classified; Z87.891 Personal history of nicotine dependence; K21.00 Gastro-esophageal reflux disease with esophagitis, without bleeding; Z90.49 Acquired absence of other specified parts of digestive tract; R10.84 Generalized abdominal pain; M19.90 Unspecified osteoarthritis, unspecified site; Z79.899 Other long term (current) drug therapy; Z90.710 Acquired absence of both cervix and uterus
CPT/HCPCS: 74177; 80048; 80076; 83605; 83690; 96361; 96374; 96375; 99285; J7030; Q9967; J2405

== ENCOUNTER 2024-12-08 10:30 | Emergency (ER) | payer MEDICARE, SELFPAY ==
[2024-12-08 10:31] VITALS: BP 153/94; PULSE 108; RESP 18; TEMP 36.6; O2SAT 99
--- NOTE | 2024-12-08 10:43 | RAD_ITS ---
PROCEDURE: HIP, UNI W/ PELVIS 2-3 VIEWS 12/08/2024 REASON FOR EXAM: FALL TECHNIQUE: HIP, UNI W/ PELVIS 2-3 VIEWS Laterality: Left COMPARISON: None FINDINGS: Bones: No demonstrated fracture or suspicious osseous lesion Joints: Well-preserved Soft tissues: Unremarkable Other: Surgical hardware in the lower lumbar spine and sacrum free of complication RAD/HIP, UNI W/ Pelvis 2-3 Views IMPRESSION: No acute abnormalities Reading Location: [id number]
--- NOTE | 2024-12-08 10:43 | RAD_ITS ---
EXAM: Left lower leg CLINICAL HISTORY: Pain TECHNIQUE: Two views of the left lower leg FINDINGS: No fracture or dislocation RAD/Tibia & Fibula 2 Views IMPRESSION: Negative left lower leg Reading Location[facility]
--- NOTE | 2024-12-08 10:43 | RAD_ITS ---
PROCEDURE: FOOT MIN 3 VIEWS 12/08/2024 REASON FOR EXAM: FALL TECHNIQUE: FOOT MIN 3 VIEWS Laterality: Left FINDINGS: No fracture, dislocation or significant arthropathy RAD/Foot min 3 Views IMPRESSION: Negative left foot Reading Location[facility]
--- NOTE | 2024-12-08 10:43 | RAD_ITS ---
PROCEDURE: ANKLE MIN 3 VIEWS 12/08/2024 REASON FOR EXAM: FALL TECHNIQUE: ANKLE MIN 3 VIEWS Laterality: Left FINDINGS: Three views of the left ankle demonstrate no fracture or dislocation RAD/Ankle min 3 Views IMPRESSION: Negative left ankle Reading Location[facility]
--- NOTE | 2024-12-08 10:43 | CT_ITS ---
PROCEDURE: SPINE LUMBAR WITHOUT CONTRAST 12/08/2024 REASON FOR EXAM: FALL, HX OF BACK SURGERIES TECHNIQUE: SPINE LUMBAR WITHOUT CONTRAST Coronal and Sagittal reconstruction series were provided. One or more dose reduction techniques were used (e.g., Automated exposure control, adjustment of the mA and/or kV according to patient size, use of iterative reconstruction technique RADIATION DOSE SUMMARY: CTDlvol: 16.5 mGy DLP: 558 mGycm FINDINGS: Posterior fusion at L5-S1 with interbody fusion and a component of anterior fusion with grade 1 subluxation. Interbody fusion at L3-4 and L4-5 with posterior pedicle screws at L3-4 on the left side. No evidence of the loosening at L3-4. There is lucency around the left L5 pedicle screw which could indicate loosening at that level. There is no acute compression deformity. There is no retroperitoneal mass. T12-L1 unremarkable. L1-L2 demonstrates dorsal decompression without recurrent spinal stenosis. Dorsal decompression at L2-3 without recurrent pathology. At L3-4 no central spinal stenosis or foraminal compression. At L4-5 dorsal decompression without recurrent central stenosis. No soft tissue windows are supplied. There is moderate to severe bilateral L4 foraminal stenosis with potential nerve root impingement. At L5-S1, no central stenosis but severe bilateral L5 foraminal narrowing CT/Spine Lumbar without Contrast IMPRESSION: 1. Extensive lower lumbar fusion as discussed above. 2. Possible loosening of the left L5 pedicle screw. 3. Significant bilateral L4 and L5 foraminal stenosis with potential nerve root impingement. Reading Location: [facility]
--- NOTE | 2024-12-08 10:44 | EDS_ITS ---
HPI History of Present Illness Chief Complaint: Lower Extremity Injury Narrative Narrative: Patient is a 59-year-old female with a past medical history of GERD with esophagitis, Ladd's esophagus, multiple back surgeries, IBS, fibromyalgia, Chiari malformation who presents to the emergency department chief complaint of left leg pain and generalized weakness. Patient states that she has had multiple back surgeries and follows with Dr. Zhao. She states that she is scheduled to see him again to have further discussion about another back surgery as she has another failing disc. Patient notes that about 3 days ago she fell in the bathtub landing on her left side. She states that she has noted that she has pain in her left leg from her foot up her leg. States that the pain is not from her back down her lower extremity. Patient denies any history of IV drug use, states that she drinks 2 glasses of wine nightly and has never gone through alcohol withdrawal. She states that she just feels weak in her lower extremities that she might fall. States that she went to a football game yesterday and was able to walk without significant difficulty. States that she has not had to use any assistive devices such as walker or cane [facility] Medical History (Updated 12/08/24 @ 13:[address] Chilango Crews, DO) Rectal bleeding Ladd esophagus GERD with esophagitis Dysuria Neuralgia Lumbar disc disorder Neck pain Osteoarthritis Tarsal tunnel syndrome Hypokalemia History of IBS Internal hemorrhoids History of fibromyalgia Chiari malformation Ladd's esophagus Home Medications ?Medication ?Instructions ?Recorded ?Last Taken ?Type amitriptyline 10 mg tablet 10 mg PO QHS sleep 03/28/17 Unknown History cyclobenzaprine 10 mg tablet 10 mg PO ONCE PRN arthrit is 03/28/17 Unknown History duloxetine 60 mg capsule,delayed 120 mg PO QDAY depres adan/pain 03/28/17 Unknown History release meloxicam 15 mg tablet 15 mg PO DAILY pain 03/28/17 01/28/18 History gabapentin 300 mg capsule 300 mg PO TID pain 01/29/18 Unknown History omeprazole 20 mg capsule,delayed 20 mg PO BID gerd 02/05/18 08:00 History release verapamil 120 mg tablet,extended mg PO 12/02/24 Unknow n History release lidocaine 5 % topical patch 1 patch topical DAILY #15 ea 12/08/24 Unknown Rx ondansetron 4 mg disintegrating 4 mg PO Q6H PRN nausea and 12/08/24 Unknown Rx tablet vomiting #20 tabs oxycodone-acetaminophen 5 mg-325 1 tab PO Q6H PRN pain 2 days #8 12/08/24 Unknown Rx mg tablet (Endocet) tabs Allergy/AdvReac Type Severity Reaction Status Date / Time No Known Allergies Allergy Verified 12/02/24 09:32 Family History Mother Hypertension Father Degeneration of intervertebral disc Hypertension Surgical History Hx of tubal ligation S/P partial hysterectomy History of surgical removal of ganglion cyst History of esophagogastroduodenoscopy (EGD) S/P cholecystectomy History of back surgery S/P colonoscopy Hx of spinal fusion Social History household members: spouse Smoking Status: Former smoker quit status: considering quitting alcohol intake: current alcohol intake frequency: a few times a week substance use type: does not use caffeine: Yes what type of physical activity do you participate in: walking and weight training frequency: 1-2 times per week seatbelt use: always ROS ROS ED ROS Narrative Constitutional: Denies any fevers, chills, headaches, lightness, dizziness Eyes: Denies double vision Cardiovascular: Denies chest pain Respiratory: Denies shortness of breath Abdomen: Denies abdominal pain nausea vomit diarrhea, states that she has been having normal bowel movements for herself : States that she has been urinating normally for self Neurological: Complains of generalized weakness in her lower extremities most specifically on her left as noted above denies any numbness or tingling that is new Musculoskeletal: Complains of chronic back pain with multiple back surgeries as noted above Skin: Denies any rashes or lesions EXAM Physical Exam Narrative Exam Narrative: General: Patient lying in bed rest comfortably did not appear to be in acute distress Head: Atraumatic, normocephalic Eyes: PERRL bilaterally, EOMI Black no conjunctival injection noted Neck: Soft, supple, trachea midline Cardiovascular: Patient tachycardic with a regular rhythm Respiratory: Clear to auscultation bilaterally no rales rhonchi or wheezes noted Abdomen: Soft, nondistended, nontender to palpation Musculoskeletal: Patient has tenderness to palpation over the left rib cage region and has tenderness to palpation over the left lower extremity from the foot up to her knee however once again she has been ambulating on this Extremities: DP pulses +2/4 in the bilateral lower extremities, +4/5 strength noted in the bilateral upper and lower extremities, no pedal edema exam Neurological: Patient follow commands knew that she was at [facility] the year is 2024 Skin: Patient has ecchymosis over the rib cage on the left side posterior laterally Const Vital Signs: 12/08/24 10:31 Temperature 97.9 F Temperature Source Oral Pulse Rate 108 H Respiratory Rate 18 Blood Pressure 153/94 H Blood Pressure Mean 113 Pulse Ox 99 Oxygen Delivery Method Room Air MDM MDM MDM Narrative Medical decision making narrative: Patient is a 59-year-old female who presents to the emergency department the chief complaint of left lower extremity pain and weakness after fall. On the differential diagnosis includes but not limited to lumbar compression fracture, metatarsal fracture, ankle fracture, tibial plateau fracture, hip fracture, rib fracture, pneumothorax. Once the workup is obtained and reviewed she will be reevaluated. Patient's x-ray of her chest and ribs reviewed by myself and by radiology showed no acute fractures no pneumothorax. Patient x-ray of her tibia/fibula on the left reviewed by myself by radiology showed no acute fracture or dislocation. Patient's x-ray of her hip and pelvis reviewed by myself and by radiology showed no acute fractures or dislocations no other acute abnormalities noted. Patient's x-ray of her foot reviewed by myself and by radiology showed no acute findings. Patient's ankle x-ray of her ankle reviewed by myself and by radiology showed no acute findings. Patient CT lumbar spine reviewed showed extensive lower lumbar fusions. Possible loosening of the left L5 pedicle screw. Significant bilateral L4 and L5 foraminal stenosis with potential nerve root impingement. I reached out to on-call orthopedic surgeon Dr. Zhao and we had discussion about her CT findings and he states that as long as she is not having neurological deficits and is able to ambulate without any difficulty she can go home and follow-up with him at her scheduled MRI on the beginning of December and schedule appointment on December 26 with him. Patient ambulated well here Emergency Department no difficulty at her baseline she feels better she states. Patient was advised to rotate Tylenol and ibuprofen [id number] for mild to moderate pain. She was given prescription for Endocet and Zofran for severe pain she advised to not operate anything under the influence of this medication. She was given prescription for Lidoderm patch. Patient did note that she just recently completed a steroid taper pack therefore will not prescribe this. She advised to return with worsening symptoms or concerns. She is agreeable to plan as well as significant other at bedside all question concerns answered she was discharged home in stable condition. Radiography Diagnostic Testing: Clinical Impression(s) from Imaging Studies Ankle X-Ray 12/08/24 10:43 IMPRESSION: Negative left ankle Reading Location: [facility] Foot X-Ray 12/08/24 10:43 IMPRESSION: Negative left foot Reading Location: [facility] Hip/Pelvis X-Ray 12/08/24 10:43 IMPRESSION: No acute abnormalities Reading Location: [id number] Lumbar Spine CT 12/08/24 10:43 IMPRESSION: 1. Extensive lower lumbar fusion as discussed above. 2. Possible loosening of the left L5 pedicle screw. 3. Significant bilateral L4 and L5 foraminal stenosis with potential nerve root impingement. Reading Location[facility] Tibia/Fibula X-Ray 12/08/24 10:43 IMPRESSION: Negative left lower leg Reading Location[facility] Ribs w/Chest X-Ray 12/08/24 10:47 IMPRESSION: No acute rib fractures. No pneumothorax. Reading Location: [facility] Discharge Plan Triage Chief Complaint: Lower Extremity Injury ED Provider: Chilango Crews Dx/Rx/DC Orders Clinical Impression: Complaints of weakness of lower extremity, Rib pain on left side, Fall, Ab normal CT scan, lumbar spine Prescriptions: New lidocaine 5 % adhesive patch,medicated 1 patch topical DAILY Qty: 15 0RF Rx Instructions: leave on most painful area for up to 12 hrs oxycodone-acetaminophen [Endocet] 5-325 mg tablet 1 tab PO Q6H PRN (Reason: pain) 2 Days Qty: 8 0RF ondansetron 4 mg tablet,disintegrating 4 mg PO Q6H PRN (Reason: nausea and vomiting) Qty: 20 0RF No Action amitriptyline 10 mg tablet 10 mg PO QHS cyclobenzaprine 10 mg tablet 10 mg PO ONCE PRN (Reason: arthritis) duloxetine 60 mg capsule,delayed release(DR/EC) 120 mg PO QDAY meloxicam 15 mg tablet 15 mg PO DAILY verapamil 120 mg tablet extended release PO gabapentin 300 MG capsule 300 mg PO TID omeprazole 20 MG capsule 20 mg PO BID Primary Care Provider: KAY PILLAI Referrals: Jesus Whiting DO [Non-Staff] - Yasmany Zhao MD [Med Staff - Active Staff] - Activity Restrictions/Additional Instructions: Rotate Tylenol and ibuprofen [id number] for mild to moderate pain when you do this she can take something every 3 hours for pain max dose of Tylenol in 24 hours 4000 mg max dose of ibuprofen in 24 hours 3200 mg. The narcotic that you are prescribed also has Tylenol in it so take this into consideration as well. Do not operate anything under the influence of the narcotic that you are prescribed as this will make you sleepy and drowsy. Follow-up with Dr. Zhao at your scheduled appointment and have your MRI at your scheduled appointment. Return with worsening symptoms or other concerns Print Language: Dominican Disposition Disposition: Home, Self Care
--- NOTE | 2024-12-08 10:47 | RAD_ITS ---
PROCEDURE: RIBS UNI MIN 3V W/PA CHEST 12/08/2024 REASON FOR EXAM: FALL TECHNIQUE: RIBS UNI MIN 3V W/PA CHEST COMPARISON: None. FINDINGS: The lungs are clear. No pleural effusion. No pneumothorax. No cardiomegaly. The mediastinum is unremarkable. No acute bony abnormalities. No soft tissue abnormalities. RAD/Ribs Uni Min 3V w/PA Chest IMPRESSION: No acute rib fractures. No pneumothorax. Reading Location: [id number]
[2024-12-08] MEDS: Ketorolac 30 MG/ML Syringe IM (11:14)
--- OUTSIDE RECORDS SUMMARY | 2024-12-08 11:22 | XMS RPT_ITS | CCD ---
Author Organization [facility] Inform ion [facility] Care Team Providers Care Learning Support Services Director Name Role Phone Jero Whiting Primary Care Provider [phone] Marbella Adams Primary Care Provider Lisa Evans Unavailable [phone] JERO WHITING DO Primary Care Physician [phone] JERO WHITING DO Primary Care Unavailable WESLEY EUBANKS Attending Unavailab WESLEY Mora Attending Unavailab JERO Mccain DO Primary Care Unavailable JERO WHITING DO Primary Care Unavailable JERO WHITING DO Attending Unavailable JERO WHITING DO Primary Care Unavailable JERO WHITING DO Attending Unavailable WESLEY EUBANKS Attending Unavailab JERO Mccain DO Primary Care Unavailable JERO WHITING DO Primary Care Unavailable JERO WHITING DO Attending Unavailable JERO WHITING DO Primary Care Unavailable GREGORY LOWERY MD Attending Unavailable JERO WHITING DO Primary Care Unavailable MYRIAM RAJPUT MD Attending Unavaila JERO Cunningahm DO Primary Care Unavailable MYRIAM RAJPUT MD Attending Unavaila linda DANG MD, DR PINEDA Attending Unav ailable JERO WHITING DO Primary Care Unavailable WESLEY EUBANKS Attending Unavailab JERO Mccain DO Primary Care Unavailable Jero Whiting DO Primary Care Provider JERO WHITING Primary Care Unavailable EDILBERTO GROVER Attending Unavailable KAY FLOYD Attending JERO Little DO Primary Care Unavailable JERO WHITING DO Primary Care Unavailable JERO WHITING DO Attending Unavailable KELLY DURON MD Attending Unavailable EJRO WHITING DO Primary Care Unavailable Dr. Jero Whiting DO Primary Care Provider [phone] Dr. Jero Whiting DO Referring Provider Elena Rowan Attending Provider [phone] Boom Son MD Attending Provider [phone] Jero Whiting Primary Care Unavailable Jero Whiting Referring Unavailable Elena Villaseñor Attending Unavailable Jero Whiting Primary Care Unavailable Boom Son Attending Unavailable Allergies Allergy Classification Reported Allergen(s) Allergy Type Date of Onset Reaction(s) Facility (11 sources) nickel; Translations: [NICKEL] Drug Allergy 4 Rash [facility] (1 source) busPIRone; Translations: [buspirone] Drug Allergy Fatigue (finding) [facility] Medications Current Medications Medication Drug Class(es) Dates Sig (Normalized) Sig (Original) acetaminophen 325 mg / oxyCODONE hydrochloride 5 mg oral tablet (4 sources) Opioid Agonist Start: 11-18-2024 End: 11-24-2024 take 1 tablet by mouth twice daily as needed for pain acetaminophen-oxy CODONE 325 mg-5 mg oral tablet Dose = 1 tab(s), Oral, BID, PRN for pain, X 6 day(s), # 12 tab(s), 0 Refill(s), Pharmacy: [facility]/pharmacy #[id number], Right hip pain, 164, cm, 11/18/24 14:10:00 EDT, Height, 77.9, kg, 11/18/24 14:10:00 EDT, Dosing Weight Start Date: 11/18/24 Stop Date: 11/24/24 Status: Ordered Quantity: 12.0 Unit: tab(s) Repeat number: 1 Indications: Pain in right hip; Start: 04-15-2024 End: 04-22-2024 take 1 tablet by mouth every six hours as needed for pain acetaminophen-oxyCODONE 325 mg-5 mg oral tablet Dose = 1 tab(s), Oral, q6h, PRN for pain, X 7 day(s), # 40 tab(s), 0 Refill(s), Pharmacy: [facility]/pharmacy #[id number], Right leg pain, 164, cm, 04/15/24 15:25:00 EST, Height, 76.2, kg, 04/15/24 15:25:00 EST, Dosing Weight Start Date: 04/15/24 Stop Date: 04/22/24 Status: Ordered Quantity: 40.0 Unit: tab(s) Repeat number: 1 Indication: Pain in right leg Start: 02-20-2013 End: 10-21-2024 take 1 tablet by mouth every four hours as needed for pain acetaminophen-oxyCODONE 325 mg-5 mg oral tablet Dose = 1 tab(s), Oral, q4h, PRN as needed for pain, # 40 tab(s), 0 Refill(s), [id number], Right leg pain, 165.5, cm, 05/01/24 9:53:00 EST, Height, 78.9, kg, 05/01/24 9:53:00 EST, Dosing Weight Start Date: 05/09/24 Stop Date: 05/16/24 Status: Ordered Quantity: 40.0 Unit: tab(s) Repeat number: 1 Indication: Pain in right leg Albuterol (Eqv-Proventil HFA) 90 mcg/inh inhalation aerosol (3 sources) Start: 04-15-2024 take 1 puff(s) by inhalation every four hours as needed for wheezing Albuterol (Eqv-Proventil HFA) 90 mcg/inh inhalation aerosol 1 puff(s), Inhalation, q4h, PRN as needed for shortness of breath or wheezing, # 18 gram(s), 0 Refill(s) Start Date: 04/15/24 Status: Ordered Quantity: 18.0 Unit: g Repeat number: 1 amitriptyline hydrochloride 10 mg oral tablet (15 sources) Tricyclic Antidepressant Start: 01-23-2019 take 2 tablets by mouth once daily at bedtime amitriptyline (ELAVIL) 10 mg tablet Take 20 mg by mouth daily at bedtime. 01/23/2019 Active Start: 12-20-2018 AMITRIPTYLINE HCL TABS 2 tablets twice daily (30mg) AMITRIPTYLINE HCL TABS [id number] Dotty Whalen LIV Start: 03-28-2017 take 1 tablet by gokul th at bedtime Amitriptyline 10 mg tablet Active 10 mg PO AT BEDTIME March 28, 2017 1:00am sleep amoxicillin 875 mg / clavulanate 125 mg oral tablet (1 source) Penicillin-class Antibacterial Start: 04-15-2024 End: 04-22-2024 take 1 tablet by mouth every twelve hours amoxicillin-clavulanate 875 mg-125 mg oral tablet 1 tab(s), Oral, q12h, # 14 tab(s), 0 Refill(s), 79.2 Start Date: 04/15/24 Stop Date: 04/22/24 Status: Ordered Quantity: 14.0 Unit: tab(s) Repeat number: 1 busPIRone hydrochloride 15 mg oral tablet (1 source) Start: 05-01-2024 End: 05-31-2024 take 5-15 mg by mouth twice daily busPIRone 15 mg oral tablet 5 to 15 mg, Oral, BID, # 60 tab(s), 0 Refill(s), Pharmacy: [facility]/pharmacy #[id number], Generalized anxiety disorder, 165.5, cm, 05/01/24 9:53:00 EST, Height, kg, 05/01/24 9:53:00 EST, Dosing Weight Start Date: 05/01/24 Stop Date: 05/31/24 Status: Ordered Quantity: 60.0 Unit: tab(s) Repeat number: 1 Indication: Generalized anxiety disorder cyclobenzaprine hydrochloride 10 mg oral tablet (15 sources) Muscle Relaxant Start: 07-31-2024 cyclobenzaprine 10 mg oral tablet Dose : 10 mg = 1 tab(s), Oral, TID, PRN as needed for spasm, # 90 tab(s), 2 Refill(s), Pharmacy: [facility], Lumbar degenerative disc disease, 166, cm, 07/31/24 10:01:00 EDT, Height, kg, 07/31/24 10:01:00 EDT, Dosing Weight Start Date: 07/31/24 Status: Ordered Quantity: 90.0 Unit: tab(s) Repeat number: 3 Indications: Other intervertebral disc degeneration, lumbar region; Start: 05-01-2024 cyclobenzaprin e 10 mg oral tablet Dose : 10 mg = 1 tab(s), Oral, TID, PRN as needed for spasm, # 90 tab(s), 1 Refill(s), Pharmacy: [facility], Lumbar degenerative disc disease, 165.5, cm, 05/01/24 9:53:00 EST, Height, kg, 05/01/24 9:53:00 EST, Dosing Weight Start Date: 05/01/24 Status: Ordered Quantity: 90.0 Unit: tab(s) Repeat number: 2 Indication: Other intervertebral disc degeneration, lumbar region Start: 05-03-2023 cyclobenzaprin e 10 mg oral tablet Dose : 10 mg = 1 tab(s), Oral, TID, PRN as needed for spasm, # 90 tab(s), 1 Refill(s), Pharmacy: [facility], 167.6, cm, 05/03/23 14:34:00 EST, Height, kg, 05/03/23 14:34:00 EST, Dosing Weight Start Date: 05/03/23 Status: Ordered Quantity: 90.0 Unit: tab(s) Repeat number: 2 Start: 11-03-2022 cyclobenzaprin e 10 mg oral tablet Dose : 10 mg = 1 tab(s), Oral, TID, PRN as needed for spasm, # 30 tab(s), 0 Refill(s) Start Date: 11/03/22 Status: Ordered Start: 07-06-2020 End: 10-31-2022 cyclobenzaprine 10 mg oral t ablet Dose : 10 mg = 1 tab(s), Oral, qHS, PRN for muscle spasm, X 90 day(s), # 90 tab(s), 1 Refill(s), 10/31/22 9:33:00 EDT, Pharmacy: [facility] ([facility] ), 168.5, cm, 05/04/22 9:09:00 EST, Height Start Date: 05/04/22 Stop Date: 10/31/22 Status: Ordered Start: 12-20-2018 CYCLOBENZAPRIN E HCL 10 MG TABS 1 tablet nightly as needed CYCLOBENZAPRINE HCL [id number] Lisa Coombs APRN-[facility] Start: 03-28-2017 take 1 tablet by gokul th once as needed for arthritis Cyclobenzaprine 10 mg tablet Active 10 mg PO ONCE as needed for arthritis March 28, 2017 1:00am doxycycline monohydrate 100 mg oral capsule (1 source) Tetracycline-class Drug Start: 10-21-2024 End: 10-26-2024 take 1 capsule by mouth twice daily doxycycline monohydrate (MONODOX) 100 mg capsule Indications: Acute cough , Wheezing , Smoking history Take 1 capsule by mouth two times a day for 5 days. 10 capsule 10/21/2024 10/26/2024 Active DULoxetine 60 mg delayed release oral capsule (15 sources) Serotonin and Norepinephrine Reuptake Inhibitor Start: 05-01-2024 DULoxetine 60 mg oral delayed release capsule Dose : 60 mg = 1 cap(s), Oral, BID, # 180 cap(s), 3 Refill(s), Pharmacy: [facility], Fibromyoma, 165.5, cm, 05/01/24 9:53:00 EST, Height, kg, 05/01/24 9:53:00 EST, Dosing Weight Start Date: 05/01/24 Status: Ordered Quantity: 180.0 Unit: cap(s) Repeat number: 4 Indications: Benign neoplasm of connective and other soft tissue, unspecified; Start: 05-03-2023 DULoxetine 60 mg oral delayed release capsule Dose : 60 mg = 1 cap(s), Oral, BID, # 180 cap(s), 3 Refill(s), Pharmacy: [facility], 167.6, cm, 05/03/23 14:34:00 EST, Height, kg, 05/03/23 14:34:00 EST, Dosing Weight Start Date: 05/03/23 Status: Ordered Quantity: 180.0 Unit: cap(s) Repeat number: 4 Start: 09-08-2022 DULoxetine 60 mg oral delayed release capsule Dose : 60 mg = 1 cap(s), Oral, BID, 09/19/2022-increased dose-not sent in, # 90 cap(s), 3 Refill(s), Pharmacy: [facility] ([facility] ), 167, cm, 09/08/22 12:53:00 EDT, Height Start Date: 09/08/22 Status: Ordered Start: 08-25-2022 DULoxetine 60 mg oral delayed release capsule Dose : 60 mg = 1 cap(s), Oral, qDay, # 30 cap(s), 0 Refill(s) Start Date: 08/25/22 Status: Ordered Start: 03-28-2017 take 120 mg by mouth once igor y Duloxetine Active 120 MG PO daily March 28, 2017 1:00am Start: 05-15-2012 take 2 capsules by m outh once daily Duloxetine 60 mg capsule,delayed release(DR/EC) Active 120 mg PO daily March 28, 2017 1:00am depression/pain gabapentin 300 mg oral capsule (6 sources) Anti-epileptic Agent Start: 01-29-2018 take 1 capsule by mouth three times daily Gabapentin 300 MG capsule Active 300 mg PO THREE TIMES A DAY January 29, 2018 12:00am pain Start: 02-01-2012 End: 10-21-2024 GABAPENTIN 600 MG TABS 1 tab let 3 times daily GABAPENTIN [id number] Dotty Whalen [employer] hydrOXYzine pamoate 25 mg oral capsule (5 sources) Antihistamine Start: 10-01-2024 hydrOXYzine pa moate (VISTARIL) 25 mg capsule 10/01/2024 Active Start: 07-31-2024 End: 09-04-2025 hydrOXYzine hydrochloride 25 mg oral tablet Dose : 25 mg = 1 tab(s), Oral, BID, PRN as needed for anxiety, # 200 tab(s), 3 Refill(s), Pharmacy: [facility], 166, cm, 07/31/24 10:01:00 EDT, Height, kg, 07/31/24 10:01:00 EDT, Dosing Weight Start Date: 07/31/24 Stop Date: 09/04/25 Status: Ordered Quantity: 200.0 Unit: tab(s) Repeat number: 4 Start: 11-01-2023 End: 02-09-2024 hydrOXYzine hydrochloride 25 mg oral tablet Dose : 25 mg = 1 tab(s), Oral, BID, PRN as needed for anxiety, # 200 tab(s), 0 Refill(s), Pharmacy: [facility], 165.5, cm, 11/01/23 11:24:00 EDT, Height, kg, 11/01/23 11:24:00 EDT, Dosing Weight Start Date: 11/01/23 Stop Date: 02/09/24 Status: Ordered Quantity: 200.0 Unit: tab(s) Repeat number: 1 Start: 07-13-2023 hydrOXYzine hy drochloride 25 mg oral tablet Dose : 25 mg = 1 tab(s), Oral, BID, PRN as needed for anxiety, take 1 tablet twice a day if needed anxiety Start Date: 07/13/23 Status: Ordered linaclotide 0.29 mg oral capsule (12 sources) Guanylate Cyclase-C Agonist Start: 05-22-2024 Linzess 290 mcg oral capsule Dose : 290 mcg = 1 cap(s), Oral, qDay, # 90 cap(s), 3 Refill(s), Pharmacy: [facility], 165.5, cm, 05/01/24 9:53:00 EST, Height, kg, 05/01/24 9:53:00 EST, Dosing Weight Start Date: 05/22/24 Status: Ordered Quantity: 90.0 Unit: cap(s) Repeat number: 4 Start: 05-01-2024 linaclotide 14 5 mcg oral capsule Dose : 145 mcg = 1 cap(s), Oral, qDay, # 90 cap(s), 3 Refill(s), Pharmacy: [facility], Irritable bowel syndrome with constipation, 165.5, cm, 05/01/24 9:53:00 EST, Height, kg, 05/01/24 9:53:00 EST, Dosing Weight Start Date: 05/01/24 Status: Ordered Quantity: 90.0 Unit: cap(s) Repeat number: 4 Indication: Irritable bowel syndrome with constipation Start: 08-02-2023 linaclotide 14 5 mcg oral capsule Dose : 145 mcg = 1 cap(s), Oral, qDay, # 30 cap(s), 0 Refill(s), [id number], 168, cm, 08/02/23 14:02:00 EDT, Height, kg, 08/02/23 14:02:00 EDT, Dosing Weight Start Date: 08/02/23 Status: Ordered Quantity: 30.0 Unit: cap(s) Repeat number: 1 Start: 05-17-2023 End: 05-11-2024 linaclotide 290 mcg oral cap eduin Dose : 290 mcg = 1 cap(s), Oral, qDay, 30 minutes before breakfast; on an empty stomach; do not crush or chew, # 30 cap(s), 0 Refill(s), Pharmacy: [facility] #[id number], 167.6, cm, 05/03/23 14:34:00 EST, Height, kg, 05/03/23 14:34:00 EST, Dosing Weight Start Date: 05/17/23 Stop Date: 05/11/24 Status: Ordered Start: 05-04-2022 LINZESS 290 mc g capsule Dose : 290 mcg = 1 cap(s), Oral, qDay, # 90 cap(s), 3 Refill(s), Pharmacy: [facility], 165.5, cm, 05/01/24 9:53:00 EST, Height, kg, 05/01/24 9:53:00 EST, Dosing Weight 05/04/2022 Active Start: 05-04-2022 End: 04-29-2023 linaclotide 290 mcg oral cap eduin Dose : 290 mcg = 1 cap(s), Oral, qDay, 30 minutes before breakfast; on an empty stomach; do not crush or chew, # 90 cap(s), 3 Refill(s), Pharmacy: [facility] ([facility] ), 168.5, cm, 05/04/22 9:09:00 EST, Height, kg, 05/04/22 9:09:00 EST, Dosing Weight Start Date: 05/04/22 Stop Date: 04/29/23 Status: Ordered meloxicam 15 mg oral tablet (15 sources) Nonsteroidal Anti-inflammatory Drug Start: 03-28-2017 take 1 tablet by mouth once daily Meloxicam 15 mg tablet Active 15 mg PO DAILY March 28, 2017 1:00am pain metoprolol tartrate 75 mg oral tablet (4 sources) beta-Adrenergic Patricia Start: 10-04-2022 metoprolol tartrate 75 mg oral tablet Dose : 75 mg = 1 tab(s), Oral, BID, # 180 tab(s), 0 Refill(s) Start Date: 10/04/22 Status: Ordered Start: 08-25-2022 metoprolol tar trate 50 mg oral tablet Dose : 50 mg = 1 tab(s), Oral, BID, # 60 tab(s), 0 Refill(s), [id number], Hypertension, 167, cm, 08/25/22 16:44:00 EDT, Height, kg, 08/25/22 16:44:00 EDT, Dosing Weight Start Date: 08/25/22 Status: Ordered omeprazole 20 mg delayed release oral capsule (16 sources) Proton Pump Inhibitor Start: 12-20-2018 OMEPRAZO LE 20 MG TBEC 1 tablet twice daily OMEPRAZOLE [id number] Dotty Whalen L[facility] Start: 02-13-2013 End: 04-26-2025 take 1 capsule by mouth twice daily Omeprazole 20 MG capsule Active 20 mg PO TWICE A DAY January 29, 2018 12:00am gerd prazosin 1 mg oral capsule (2 sources) alpha-Adrenergic Patricia Start: 07-13-2023 prazo sin 1 mg oral capsule Dose : 1 mg = 1 cap(s), Oral, qHS, 0 Refill(s) Start Date: 07/13/23 Status: Ordered predniSONE 20 mg oral tablet (2 sources) Start: 11-18-2024 End: 11-23-2024 predniSONE 20 mg oral tablet Dose : 40 mg = 2 tab(s), Oral, qDay, Take with food, X 5 day(s), # 10 tab(s), 0 Refill(s), 11/23/24 2:32:00 PM EDT, Pharmacy: [facility]/pharmacy #[id number], Right hip pain, 164, cm, 11/18/24 14:10:00 EDT, Height, kg, 11/18/24 14:10:00 EDT, Dosing Weight Start Date: 11/18/24 Stop Date: 11/23/24 Status: Ordered Quantity: 10.0 Unit: tab(s) Repeat number: 1 Indications: Pain in right hip; Start: 10-21-2024 End: 10-26-2024 take 1 tablet by mouth twice daily predniSONE (DELTASONE) 20 mg tablet Indications: Acute cough , Wheezing , Smoking history Take 1 tablet by mouth two times a day for 5 days. 10 tablet 10/21/2024 10/26/2024 Active verapamil hydrochloride 120 mg extended release oral tablet (8 sources) Calcium Channel Patricia Start: 01-18-2023 End: 04-26-2025 Verapamil 120 mg tablet extended release Active mg PO December 02, 2024 12:00am Completed/Discontinued Medications Medication Drug Class(es) Dates Sig (Normalized) Sig (Original) acetaminophen 325 mg / HYDROcodone bitartrate 5 mg oral tablet (3 sources) Opioid Agonist Start: 11-03-2022 acetaminophen-hydro codone 325 mg-5 mg oral tablet Dose = 1 tab(s), Oral, q6h, PRN for pain, tab(s), 0 Refill(s), 82.9 Start Date: 11/03/22 Status: Ordered docusate calcium 240 mg oral capsule (6 sources) Start: 12-20-2018 STOOL SOFTENER CAPS 1 capsule twice daily DOCUSATE CALCIUM CAPS [id number] Dotty Juansaro [employer] Start: 04-06-2017 End: 12-02-2024 take 4 capsules by mouth twice daily Docusate Sodium 50 MG capsule Discontinued 200 mg PO TWICE A DAY April 06, 2017 1:00am December 02, 2024 9:33am stool softner Start: 04-06-2017 take 200 mg by mouth twice bhupinder ly Docusate Sodium Active 200 MG PO TWICE A DAY April 06, 2017 1:00am End: 10-21-2024 take 1 capsule by mouth three times daily docusate sodium (COLACE) 100 mg ORAL capsule Take 100 mg by mouth three times daily. 10/21/2024 Discontinued eszopiclone 3 mg oral tablet (9 sources) Start: 09-15-2021 eszopiclone 3 mg oral tablet Dose : 3 mg = 1 tab(s), Oral, qHS, PRN for insomnia, 0 Refill(s), 79.2 Start Date: 09/15/21 Status: Ordered Start: 12-20-2018 LUNESTA TABS 1 tablet bedtime as needed ESZOPICLONE TABS [id number] Dotty Corsaro [employer] Start: 03-28-2017 End: 12-02-2024 take 1 tablet by mouth at bedtime Eszopiclone 2 mg tablet Discontinued 2 mg PO AT BEDTIME March 28, 2017 1:00am December 02, 2024 9:33am sleep furosemide 20 mg oral tablet (1 source) Loop Diuretic Start: 03-23-2011 End: 10-21-2024 take 1 tablet by mouth once daily as needed furosemide 20 mg ORAL tablet Indications: Myalgia and myositis, unspecified Take 1 tablet by mouth once daily as needed. 90 tablet 0 03/23/2011 10/21/2024 Discontinued hydrocortisone acetate 25 mg/ml / pramoxine hydrochloride 10 mg/ml rectal cream (1 source) Corticosteroid Start: 02-08-2013 End: 10-21-2024 hydrocortisone-pr amoxine 2.5-1 % rectal cream 1 application by RECTAL route three times daily. 30 g 5 02/08/2013 10/21/2024 Discontinued MV,CA,MIN/FA/HERBAL NO.160 (ESTROVEN PMS ORAL) (1 source) End: 10-21-2024 take 2 tablets by mouth once daily MV,CA,MIN/FA/HERB AL NO.160 (ESTROVEN PMS ORAL) Take 2 tablets by mouth once daily. 10/21/2024 Discontinued ondansetron 4 mg disintegrating oral tablet (3 sources) Serotonin-3 Receptor Antagonist Start: 09-16-2022 End: 12-02-2024 take 1 tablet by mouth every eight hours as needed for nausea Ondansetron 4 mg tablet,disintegra ting Discontinued 4 mg PO EVERY 8 HOURS NEEDED as needed for Nausea 10 0 September 16, 2022 12:00am December 02, 2024 9:33am oxyCODONE hydrochloride 5 mg oral tablet (3 sources) Opioid Agonist Start: 02-06-2018 End: 02-09-2018 take 1 tablet by mouth every six hours as needed for pain Oxycodone 5 MG tablet Discontinued 5 mg PO EVERY 6 HOURS NEEDED as needed for Mod-Severe Pain (4-10/10) 10 3 0 February 06, 2018 3:45pm February 08, 2018 12:00am February 09, 2018 12:20am Polyp of cecum Benign neoplasm of cecum SUMAtriptan 50 mg oral tablet (1 source) Serotonin-1b and Serotonin-1d Receptor Agonist End: 10-21-2024 sumatriptan 50 mg ORAL tablet Take 50 mg by mouth as needed. For migrane 10/21/2024 Discontinued varenicline 1 mg oral tablet (1 source) Partial Cholinergic Nicotinic Agonist End: 10-21-2024 take 1 tablet by mouth twice daily varenicline (CHANTIX) 1 mg tablet Take 1 mg by mouth twice daily. 10/21/2024 Discontinued B COMPLEX VITAMINS (2 sources) Start: 12-20-2018 VITAMIN B COMPLEX TABS 1 tablet twice daily B COMPLEX VITAMINS [id number] Dotty Whalen [employer] Problems Active Problems Problem Classification Problem Date Documented Da te Episodic/Chronic Abdominal pain (7 sources) Right upper quadrant pain; Translations: [Right lower quadrant pain] Onset: 3 08-11-2003 Episodic Anxiety disorders (3 sources) Generalized anxiety disorder 11-01-2023 Chronic Cardiac dysrhythmias (9 sources) Supraventricular tachycardia; Translations: [Supraventricular tachycardia] Onset: 3 08-25-2022 Chronic Cardiac dysrhythmias (5 sources) Tachycardia 10-04-2022 Episodic Chronic kidney disease (1 source) Chronic kidney disease stage 3A 11-18-2024 Chronic Deficiency and other anemia (9 sources) Iron deficiency anemia 04-26-2019 Episodic Esophageal disorders (18 sources) Gastroesophageal reflux disease without esophagitis; Translations: [Gastro-esophageal reflux disease with esophagitis] 03-31-2021 Chronic Essential hypertension (11 sources) Hypertensive disorder; Translations: [Essential (primary) hypertension] Onset: 3 08-25-2022 Chronic Fluid and electrolyte disorders (3 sources) Hypokalemia; Translations: [Hypokalemia] 02-05-2018 Episodic Gastrointestinal hemorrhage (5 sources) Rectal hemorrhage; Translations: [Hemorrhage of anus and rectum] 11-14-2011 Episodic Genitourinary symptoms and ill-defined conditions (11 sources) Dysuria; Translations: [Dysuria] 02-05-2018 Episodic Hemorrhoids (5 sources) Internal hemorrhoids; Translations: [Other hemorrhoids] Onset: 3 08-11-2003 Episodic Intestinal obstruction without hernia (1 source) Intestinal obstruction; Translations: [Ileus, unspecified] Onset: 4 Episodic Joint disorders and dislocations; trauma-related (9 sources) Rupture of wrist ligament 09-23-2020 Chronic Miscellaneous mental health disorders (2 sources) Sleep walking disorder 05-03-2023 Chronic Mood disorders (17 sources) Major depressive disorder; Translations: [Depressive disorder in remission] Onset: 1 03-31-2021 Chronic Nausea and vomiting (6 sources) Nausea and vomiting; Translations: [Nausea with vomiting, unspecified] 09-16-2022 Episodic Nervous system congenital anomalies (2 sources) Chiari malformation 03-28-2017 Chronic Osteoarthritis (3 sources) Osteoarthritis; Translations: [Unspecified osteoarthritis, unspecified site] 02-05-2018 Chronic Other and unspecified benign neoplasm (3 sources) Polyp of cecum; Translations: [Polyp of colon] 02-05-2018 Episodic Other connective tissue disease (10 sources) Fibromyalgia; Translations: [Fibromyalgia] Onset: 1 09-19-2022 Episodic Other connective tissue disease (3 sources) History of spinal fusion; Translations: [Arthrodesis status] 02-05-2018 Episodic Comment on above: 12/09/15 Other connective tissue disease (3 sources) Neuralgia; Translations: [Neuralgia and neuritis, unspecified] 02-05-2018 Episodic Other connective tissue disease (3 sources) H/O: musculoskeletal disease; Translations: [Personal history of other diseases of the musculoskeletal system and connective tissue] 02-05-2018 Episodic Other connective tissue disease (2 sources) Pain in right lower limb 04-15-2024 Episodic Other connective tissue disease (1 source) Arthrodesis status; Translations: [Arthrodesis status] Onset: Episodic Other gastrointestinal disorders (2 sources) Irritable bowel syndrome; Translations: [Irritable bowel syndrome without diarrhea] Onset: 3 08-11-2003 Chronic Other gastrointestinal disorders (9 sources) Irritable bowel syndrome characterized by constipation 03-31-2021 Chronic Other gastrointestinal disorders (3 sources) History of irritable bowel syndrome; Translations: [Personal history of other diseases of the digestive system] 02-05-2018 Episodic Other liver diseases (3 sources) Steatosis of liver; Translations: [Fatty (change of) liver, not elsewhere classified] 09-16-2022 Chronic Other liver diseases (1 source) Disease of liver; Translations: [Other specified diseases of liver] Onset: Chronic Other liver diseases (11 sources) Elevated liver enzymes level; Translations: [High liver transaminase level] 09-16-2022 Episodic Other lower respiratory disease (1 source) Cough; Translations: [Acute cough] 10-21-2024 Episodic Other lower respiratory disease (1 source) Wheezing; Translations: [Wheezing] 10-21-2024 Episodic Other lower respiratory disease (1 source) Wheezing; Translations: [Wheezing] Onset: Episodic Other nervous system disorders (3 sources) Tarsal tunnel syndrome; Translations: [Tarsal tunnel syndrome, unspecified lower limb] 02-05-2018 Chronic Other non-traumatic joint disorders (9 sources) Arthritis of first carpometacarpal joint of left hand 09-23-2020 Chronic Other non-traumatic joint disorders (9 sources) Arthritis of first carpometacarpal joint of right hand 09-23-2020 Chronic Other non-traumatic joint disorders (1 source) Hip pain 11-18-2024 Episodic Other nutritional; endocrine; and metabolic disorders (8 sources) Body mass index 30+ - obesity 09-08-2022 Chronic Peripheral and visceral atherosclerosis (2 sources) 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 Poisoning by nonmedicinal substances (1 source) Tick bite 09-12-2024 Episodic Residual codes; unclassified (2 sources) Chronic pain; Translations: [Other chronic pain] Onset: 01-12-2011 Chronic Residual codes; unclassified (3 sources) Past history of procedure; Translations: [Other specified postprocedural states] 02-05-2018 Episodic Comment on above: 08/29/05 Residual codes; unclassified (3 sources) History of colonoscopy; Translations: [Other specified postprocedural states] 02-05-2018 Episodic Comment on above: 02/22/1305//07/18 Residual codes; unclassified (3 sources) H/O Spinal surgery; Translations: [Other specified postprocedural states] 02-05-2018 Episodic Comment on above: spinal stenosis -05/30Decompression- 01/11/10Disc fusion- 03/23/07 Residual codes; unclassified (3 sources) History of partial resection of colon; Translations: [Acquired absence of other specified parts of digestive tract] 09-16-2022 Episodic Residual codes; unclassified (1 source) Other specified postprocedural states; Translations: [Other specified postprocedural states] Onset: Episodic Screening and history of mental health and substance abuse codes (2 sources) Tobacco use and exposure - finding; Translations: [Personal history of nicotine dependence] Onset: 5 10-21-2024 Episodic Spondylosis; intervertebral disc disorders; other back problems (16 sources) Degeneration of intervertebral disc; Translations: [Degeneration of lumbar intervertebral disc] Onset: 6 11-14-2011 Chronic Spondylosis; intervertebral disc disorders; other back problems (20 sources) Low back pain; Translations: [Neck pain] Onset: 1 01-31-2011 Episodic Substance-related disorders (9 sources) Nicotine dependence 07-06-2020 Chronic Unclassified (1 source) Chiari malformation; Translations: [Chiari malformation] 02-05-2018 Unclassified (1 source) Acute cough; Translations: [Acute cough] Onset: 5 Unclassified (1 source) Patient encounter status 11-18-2024 Unclassified (1 source) Low back pain, unspecified; Translations: [Low back pain, unspecified] Onset: 5 Viral infection (1 source) Viral syndrome 09-12-2024 Episodic Viral infection (5 sources) Disease caused by 2019-nCoV 12-16-2022 Past or Other Problems Problem Classification Problem Date Documented Da te Episodic/Chronic Anal and rectal conditions (2 sources) Anal fissure; Translations: [Anal fissure, unspecified] Onset: 3 02-13-2013 Episodic Nonspecific chest pain (2 sources) Chest pain, unspecified; Translations: [Chest pain, unspecified] Onset: 3 Episodic Other acquired deformities (2 sources) Spondylolisthesis L5/S1 level; Translations: [Spondylolisthesis, lumbosacral region] Onset: 9 12-25-2018 Episodic Other bone disease and musculoskeletal deformities (2 sources) Osteopenia; Translations: [Other specified disorders of bone density and structure, unspecified site] Onset: 6 11-17-2015 Episodic Other connective tissue disease (2 sources) Muscle pain; Translations: [Myalgia and myositis, unspecified] Onset: 3 08-11-2003 Episodic Other connective tissue disease (2 sources) History of operative procedure on lumbosacral spinal structure; Translations: [Arthrodesis status] Onset: 9 02-14-2019 Episodic Other connective tissue disease (2 sources) History of operative procedure on lumbar spinal structure; Translations: [Arthrodesis status] Onset: 6 12-31-2015 Episodic Other gastrointestinal disorders (2 sources) Constipation; Translations: [Constipation] Onset: 3 08-11-2003 Episodic Other screening for suspected conditions (not mental disorders or infectious disease) (2 sources) Abnormal electrocardiogram [ECG] [EKG]; Translations: [Abnormal electrocardiogram [ECG] [EKG]] Onset: 3 Episodic Unclassified (2 sources) Problem Results Test Name Value Interpretation Reference Range Facility L/S Spine Min 4 Views11-15 L/S Spine Min 4 Views [facility] Imaging Services [address] [place] [address] L/S Spine Min 4 Views MR#: [id number] Acct: [id number] Name: DELMIS PATEL JILLIAN Rep #: [id number] : 1965 F 59 From: Vanessa Hayes MD PCP: Dr. Jero Whiting, DO Status: DEP AMB Study: L/S Spine Min 4 Views Date of Exam: 12/02/24 Exam# [id number] Ordering Dr: Elena Villaseñor PROCEDURE: L/S SPINE MIN 4 VIEWS 12/02/2024 REASON FOR EXAM: CHRONIC PAIN TECHNIQUE: L/S SPINE MIN 4 VIEWS COMPARISON: None. FINDINGS: PRIOR SURGERY/HARDWARE: Prior spinal instrumentation with trans-pedicle screws and stabilizing rods at L5-S1 on the right and from L3 to S1 on the left, with interbody fusion devices. Anterior fixation screws at L5-S1. No evidence of hardware failure or loosening. Prior L2 to L5 laminectomies. BONES: Five grr-lic-jwyruzi lumbar vertebral bodies. No fracture or focal osseous lesion. Grade II anterolisthesis of L5 on S1, which is unchanged with flexion and extension. Mild thoracolumbar dextroscoliosis. DISC/DEGENERATIVE CHANGES: Disc space narrowing throughout. SOFT TISSUES: No acute abnormality seen. Mildly calcified abdominal aorta. RAD/L/S Spine Min 4 Views IMPRESSION: 1. Postsurgical changes, without signs of complication. 2. Grade II spondylolisthesis at L5-S1. No movement with flexion or extension. Reading Location: [id number] CC: BRIA Andrews; Dr. Jero Whiting DO Cataract Lens Generator: Signed Normal [facility] Orthopedic Visit Reporton Orthopedic Visit Report [facility] [address] [place] [address] [address] [place] [address] OFFICE VISIT Date of Service: 12/02/24 MR#: [id number] Acct: [id number] Name: DELMIS PATEL JILLIAN Rep #: [id number] : 1965 Provider: BRIA Andrews Age/Sex: 59/F Location: [facility] [place] Status: Signed Intake Vital Signs 09/16/22 13:23 12/02/24 09:30 Height 5 ft 6 in 5 ft 6 in Weight: 174 lb 6 oz BMI 28.1 Intake Visit Reasons: LUMBAR SPINE Chief Complaint: Lumbar spine and right hip pain Accompanied by: Is patient in pain?: Yes Pain scale (1-10): 7 Allergies No Known Allergies Allergy (Verified 12/02/24 09:32) Medications ???Medication ???Instructions ???Recorded ???Confirmed ???Type amitriptyline 10 mg tablet 10 mg PO QHS sleep 03/28/17 History cyclobenzaprine 10 mg tablet 10 mg PO ONCE PRN arthritis 12/02/24 History duloxetine 60 mg capsule,delayed 120 mg PO QDAY depression/pain 04/0212/02/24 History release meloxicam 15 mg tablet 15 mg PO DAILY pain 03/28/1712/02 History gabapentin 300 mg capsule 300 mg PO TID pain 01/29/18 History omeprazole 20 mg capsule,delayed 20 mg PO BID gerd 01/29/18 5 History release verapamil 120 mg tablet,extended mg PO 12/02/24 12/02/24 History release Have you fallen in the past year?: No PFSH Medical History (Updated 12/02/24 @ 11:08 by BRIA Andrews) Rectal bleeding Ladd esophagus GERD with esophagitis Dysuria Neuralgia Lumbar disc disorder Neck pain Osteoarthritis Tarsal tunnel syndrome Hypokalemia History of IBS Internal hemorrhoids History of fibromyalgia Chiari malformation Ladd's esophagus Surgical History Hx of tubal ligation S/P partial hysterectomy History of surgical removal of ganglion cyst History of esophagogastroduodenoscopy (EGD) S/P cholecystectomy History of back surgery S/P colonoscopy Hx of spinal fusion Family History Mother Hypertension Father Degeneration of intervertebral disc Hypertension Social History household members: spouse Smoking Status: Former smoker quit status: considering quitting alcohol intake: current alcohol intake frequency: a few times a week substance use type: does not use caffeine: Yes what type of physical activity do you participate in: walking and weight training frequency: 1-2 times per week seatbelt use: always HPI LUMBAR SPINE Details: This documentation accurately reflects the service provided and the decisions made by me, BRIA Andrews 12/02/24 0930. Part of today???s visit was documented by Dakotah Ortiz MA, acting as scribe. DELMIS PATEL is a 59 year old F here today for lumbar spine and right hip. Patient states that her pain is a 7 today. The pain goes across the lower back and goes down in to the right hip. The pain is a throbbing pain, and when she turns a little bit the pain becomes sharp in the lower back. She does have numbness and tingling that goes down both legs. The right leg is worse with the numbness and tingling than the left. The right hip pain has been going into the right side of the groin area. Patient states that this has been going on for about a month. She was lifting up trash to put it in the dumpster at home. When she was lifting the trash she felt a pop mainly in the groin are on the right side. The pop was very painful, and felt a sharp pain then went across her lower back. She went to her PCP Dr. Syed at [facility] on 11/19/2024. He did xrays on the right hip, the xrays showed slight osteoporosis, and gave her prednisone and Percocet. Those prescriptions helped the pain decrease. Dr. Syed referred her to our office. Patient states that she has had several back surgeries in the past. She had prior lumbar surgeries in approximately 2004, 2006, 2009, 2011, 2017, 2019 all of which were done by Dr. Shemar Dodge at the [facility]. Her last surgery gave her relief until the last month. Pain has worsened over the last month. She reports right sided groin pain, and bilateral lower back pain. Standing and walking long distances makes the pain worse. When she is sitting she still has pain however it is not as sharp as when she is walking or standing. She also has pain that extends down the inside of the right thigh and says that the bilateral shins are both numb following her last surgery.She states that she hasn't injured her lower back before, it's just degenerative disc disease. Patient states that when she partially turns, the pain gets worse. When she stands up and sits down the makes the pa (more content not included)... Normal [facility] XR HIP 2-3 VIEWS RIGHTon XR HIP 2-3 VIEWS RIGHT ORIGINAL EXAMINATION: 2 XRAY VIEWS OF THE RIGHT HIP 11/18/2024 2:58 pm COMPARISON: None. HISTORY: ORDERING SYSTEM PROVIDED HISTORY: Reason for Exam: Right hip pain x 2 weeks FINDINGS: Mild joint space narrowing in the inferior aspect of the right hip joint observed. There is no acute fracture or destructive bone lesion. Patient status post prior bowel resection in the right lower quadrant. IMPRESSION: 1. Mild osteoarthritis right hip. 2. No acute fracture. Interpreted by: Bahman Hankins DO Preliminary Report By: Bahman Hankins DO Electronically signed By Bahman Hankins DO Dictated Date: 11/18/2024 5:01:45 PM Prelim Date: 11/18/2024 5:02:34 PM Sign Date: 11/18/2024 5:02:34 PM Ordering Provider: KAY SYED [facility] CNOVon 10-21-2024 CNOV Office Visit (UCWSTR ) DELMIS PATEL ([id number]) 1965 F NFR Date Time Provider Department 10/21/24 10:15 AM EDILBERTO GROVER RUST During your visit today, we recorded the following information about you: Temperature Pulse Respiration Blood pressure 98.4 degrees 100/minute 20/minute 130/88 Weight 79.4 kg Edilberto Grover MD 10/21/2024 10:30 AM Signed [facility] Subjective Delmis Patel is a 59 year old female. Patient presents with: Cough: Chest congestion, sore throat x 2 weeks Patient presents with 2 weeks of cough and drainage. Symptoms include cough, wheezing, rhinorrhea, postnasal drainage, headache, elevated temperature/feverishness. She denies sinus pressure, shortness of breath, chest pain, nausea, vomiting, diarrhea. She has used Mucinex for symptoms. She is a smoker. She has used inhalers in the past but none currently. Denies official COPD diagnosis but has used antibiotic and steroid when sick like this (flares up twice a year usually). Cough Review of Systems Respiratory: Positive for cough. Objective BP 130/88 Pulse 100 Temp 36.9 ?C (98.4 ?F) Resp 20 Wt 79.4 kg (175 lb 0.7 oz) SpO2 95% Physical Exam Constitutional: General: She is not in acute distress. HENT: Right Ear: Tympanic membrane and ear canal normal. Left Ear: Tympanic membrane and ear canal normal. Nose: Congestion present. Right Sinus: No maxillary sinus tenderness or frontal sinus tenderness. Left Sinus: No maxillary sinus tenderness or frontal sinus tenderness. Mouth/Throat: Mouth: Mucous membranes are moist. Pharynx: No oropharyngeal exudate or posterior oropharyngeal erythema. Eyes: Extraocular Movements: Extraocular movements intact. Conjunctiva/sclera: Conjunctivae normal. Pupils: Pupils are equal, round, and reactive to light. Cardiovascular: Rate and Rhythm: Normal rate and regular rhythm. Heart sounds: No murmur heard. Pulmonary: Effort: No respiratory distress. Breath sounds: No wheezing, rhonchi or rales. Comments: Raspy/wheezy cough Musculoskeletal: Cervical back: Neck supple. Lymphadenopathy: Cervical: No cervical adenopathy. Neurological: Mental Status: She is alert. {ASSESSMENT/PLAN: 1. Acute cough - ICD9: 786.2, ICD10: R05.1 (primary diagnosis) 2. Wheezing - ICD9: 786.07, ICD10: R06.2 3. Smoking history - ICD9: V15.82, ICD10: Z87.891 Treat for smokers lung exacerbation with steroid and antibiotic. - PREDNISONE 20 MG TABLET - DOXYCYCLINE MONOHYDRATE 100 MG CAPSULE Smoking sensation encouraged. Follow-up with worsening or failure to improve. Edilberto Grover MD Differential Diagnoses - COPD exacerbation is more likely for the following reason(s): suggested by HANDP - Initial URI is more likely for the following reason(s): Exposure to sick - Pneumonia is less likely for the following reason(s): Benign lung exam Procedures Allergies As of Date: 10/21/2024 Noted Allergy Reaction NICKEL 05/06/2023 2 - Rash Date Reviewed: 10/21/2024 Reviewed by: Elin Dillard MA - Fully Assessed Reason for Visit: Cough [28] Cmt: Chest congestion, sore throat x 2 weeks Primary Visit Diagnosis:Acute cough [R05.1] Other Visit Diagnoses:Wheezing [R06.2] Smoking history [Z87.891] Order(s):predniSONE (DELTASONE) 20 mg tabletTake 1 tablet by mouth two times a day for 5 days.Disp: 10 tabletRfl: 0 doxycycline monohydrate (MONODOX) 100 mg capsuleTake 1 capsule by mouth two times a day for 5 days.Disp: 10 capsuleRfl: 0 Prescriptions as of 10/21/2024 - amitriptyline (ELAVIL) 10 mg tablet Take 20 mg by mouth daily at bedtime. - verapamil SR (CALAN SR) 120 mg CR tablet 120 mg. - LINZESS 290 mcg capsule Dose : 290 mcg = 1 cap(s), Oral, qDay, # 90 cap(s), 3 Refill(s), Pharmacy: [facility], 165.5, cm, 05/01/24 9:53:00 EST, Height, kg, 05/01/24 9:53:00 EST, Dosing Weight - hydrOXYzine pamoate (VISTARIL) 25 mg capsule - cyclobenzaprine (FLEXERIL) 10 mg tablet - prazosin (MINIPRESS) 1 mg cap Take 1 mg by mouth. - meloxicam (MOBIC) 15 mg tablet - predniSONE (DELTASONE) 20 mg tablet Take 1 tablet by mouth two times a day for 5 days. - doxycycline monohydrate (MONODOX) 100 mg capsule Take 1 capsule by mouth two times a day for 5 days. - omeprazole 20 mg capsule Take 1 capsule by mouth twice daily. - DULoxetine (CYMBALTA) 60 mg capsule Take 2 capsules by mouth once daily. Problem List As Of Date 10/21/2024 Noted Resolved CONSTIPATION [564.0] 09/17/2002 INT HEMORRHOID W/O COMPL [K64.8] 09/17/2002 IRRITABLE COLON [K58.9] 09/17/2002 MYALGIA AND MYOSITIS NOS [KJG0260] 09/17/2002 ABDOMINAL PAIN RUQ [R10.11] 09/17/2002 Chronic pain [G89.29] 01/12/2011 Fibromyalgia [M79.7] 01/31/2011 Major depressive disorder [F32.9] 01/31/2011 Lumbago [M54.50] 01/31/2011 Cervicalgia [M54.2] 01/31/2011 Rectal bleeding [K62.5] DD (more content not included)... Normal [facility] .Auto Diffon 07-25-2023 Basophil, Absolute 0.1 10 3/mcL Normal 0.0-0.2 [facility] ([place]) Comment on above: Performed By: #### U A #### [address] [address] Basophils/100 WBC (Bld) 1.5 % Normal 0.0-2.5 [facility] ([place]) Comment on above: Performed By: #### U A #### [address] [address] Eosinophil, Absolute 0.2 10 3/mcL Normal 0.0-0.4 [facility] ([place]) Comment on above: Performed By: #### U A #### [address] [address] Eosinophils/100 WBC (Bld) 3.0 % Normal 0.0-7.0 [facility] ([place]) Comment on above: Performed By: #### U A #### [address] [address] Lymphocyte, Absolute 2.3 10 3/mcL Normal 0.8-3.9 [facility] ([place]) Comment on above: Performed By: #### U A #### [address] [address] Lymphocytes/100 WBC (Bld) 32.8 % Normal 10.0-50.0 [facility] ([place]) Comment on above: Performed By: #### U A #### [address] [address] Monocyte, Absolute 0.3 10 3/mcL Normal 0.2-1.0 [facility] ([place]) Comment on above: Performed By: #### U A #### [address] [address] Monocytes/100 WBC (Bld) 4.3 % Normal 1.7-13.0 [facility] ([place]) Comment on above: Performed By: #### U A #### [address] [address] Neutrophils/100 WBC (Bld) 58.4 % Normal 37.0-80.0 [facility] ([place]) Comment on above: Performed By: #### U A #### [address] [address] .GFRon 07-25-2023 GFR 57 ml/min/1.73sqm Normal [facility] ([place]) Comment on above: Result Comment: GFR Population mean for , Non- Americans Ages 20-29 = 116 mL/min/1.73 sq.m. Ages 30-39 = 107 mL/min/1.73 sq.m. Ages 40-49 = 99 mL/min/1.73 sq.m. Ages 50-59 = 93 mL/min/1.73 sq.m. Ages 60-69 = 85 mL/min/1.73 sq.m. Ages 70+ = 75 mL/min/1.73 sq.m. Chronic Kidney Disease: Less than 60 mL/min/1.73 square meters End Stage Renal Disease: Less than 15 mL/min/1.73 square meters Performed By: #### L AC, ESR, CRP, TSH #### [address] [address] GFR Non- 47 ml/min/1.73sqm Normal [facility] ([place]) Comment on above: Result Comment: GFR Population mean for , Non- Americans Ages 20-29 = 116 mL/min/1.73 sq.m. Ages 30-39 = 107 mL/min/1.73 sq.m. Ages 40-49 = 99 mL/min/1.73 sq.m. Ages 50-59 = 93 mL/min/1.73 sq.m. Ages 60-69 = 85 mL/min/1.73 sq.m. Ages 70+ = 75 mL/min/1.73 sq.m. Chronic Kidney Disease: Less than 60 mL/min/1.73 square meters End Stage Renal Disease: Less than 15 mL/min/1.73 square meters Performed By: #### L AC, ESR, CRP, TSH #### [address] [address] .NEUABSon 07-25-2023 Neutrophil, Absolute 4.2 10 3/mcL Normal 2.9-6.2 [facility] ([place]) Comment on above: Performed By: #### U A #### [address] [address] BMPon 07-25-2023 BUN/Creatinine Ratio 18 ratio Normal 7-27 [facility] ([place]) Comment on above: Performed By: #### L AC, ESR, CRP, TSH #### [address] [address] Calcium [Mass/Vol] 10.4 mg/dL High 8.4-10.2 [facility] ([place]) Comment on above: Performed By: #### L AC, ESR, CRP, TSH #### [address] [address] Chloride [Moles/Vol] 102 mmol/L Normal 98-107 [facility] ([place]) Comment on above: Performed By: #### L AC, ESR, CRP, TSH #### [address] [address] CO2 [Moles/Vol] 25 mmol/L Normal 23-31 [facility] ([place]) Comment on above: Performed By: #### L AC, ESR, CRP, TSH #### [address] [address] Creatinine [Mass/Vol] 1.18 mg/dL High 0.55-1.02 [facility] ([place]) Comment on above: Performed By: #### L AC, ESR, CRP, TSH #### [address] [address] Electrolyte Balance 14.0 mEq/L Normal 4.0-15.0 [facility] ([place]) Comment on above: Performed By: #### L AC, ESR, CRP, TSH #### [address] [address] Glucose [Mass/Vol] 141 mg/dL High 80-115 [facility] ([place]) Comment on above: Performed By: #### L AC, ESR, CRP, TSH #### [address] [address] Potassium [Moles/Vol] 4.5 mmol/L Normal 3.5-5.1 [facility] ([place]) Comment on above: Performed By: #### L AC, ESR, CRP, TSH #### [address] [address] Sodium [Moles/Vol] 141 mmol/L Normal 136-145 [facility] ([place]) Comment on above: Performed By: #### L AC, ESR, CRP, TSH #### [address] [address] Urea nitrogen [Mass/Vol] 21 mg/dL High 7-18 [facility] ([place]) Comment on above: Performed By: #### L AC, ESR, CRP, TSH #### [address] [address] CBCon 07-25-2023 Erythrocyte distribution width (RBC) [Ratio] 13.5 % Normal 11.5-14.5 [facility] ([place]) Comment on above: Performed By: #### U A #### [place] [id number] Hematocrit (Bld) [Volume fraction] 44.7 % Normal 37.0-47.0 [facility] ([place]) Comment on above: Performed By: #### U A #### [place] [id number] Hgb 14.7 G/dL Normal 12.0-16.0 [facility] ([place]) Comment on above: Performed By: #### U A #### [place] [id number] MCH (RBC) [Entitic mass] 30.2 pg Normal 27.0-31.2 [facility] ([place]) Comment on above: Performed By: #### U A #### [place] [address] MCHC 32.9 G/dL Low 33.0-37.0 [facility] ([place]) Comment on above: Performed By: #### U A #### [place] [address] MCV (RBC) [Entitic vol] 91.7 fL Normal 80.0-94.0 [facility] ([place]) Comment on above: Performed By: #### U A #### [place] [id number] Platelet 276 10 3/mcL Normal 130-400 [facility] ([place]) Comment on above: Performed By: #### U A #### [place] [id number] Platelet mean volume (Bld) [Entitic vol] 9.9 fL Normal 7.4-10.4 [facility] ([place]) Comment on above: Performed By: #### U A #### [place] [id number] RBC 4.87 10 6/mcL Normal 4.20-5.40 [facility] ([place]) Comment on above: Performed By: #### U A #### [address] [address] WBC 7.2 10 3/mcL Normal 4.6-10.8 [facility] ([place]) Comment on above: Performed By: #### U A #### [address] [address] PROon 07-25-2023 PT Coag (PPP) [Time] 10.7 s Normal 9.0-14.2 [facility] ([place]) Comment on above: Performed By: #### L AC, ESR, CRP, TSH #### [address] [address] PT International Ratio 0.9 Normal [facility] ([place]) Comment on above: Result Comment: The [place] [employer] (CHEST, 1992, 102:312S-25S) recommended therapeutic range for oral anticoagulant therapy is: LOW RISK: Prophylaxis of venous thrombosis INR: 2.0-3.0 Treatment of pulmonary embolism 2.0-3.0 Prevention of systemic embolism 2.0-3.0 HIGH RISK: Mechanical prosthetic valves 2.5-3.5 Performed By: #### L AC, ESR, CRP, TSH #### [address] [address] .Auto Diffon 06-21-2023 Basophil, Absolute 0.1 10 3/mcL Normal 0.0-0.3 [facility] ([place]) Comment on above: Performed By: #### M G #### [address] [address] Basophils/100 WBC (Bld) 0.9 % Normal 0.0-2.5 [facility] ([place]) Comment on above: Performed By: #### M G #### [address] [address] Eosinophil, Absolute 0.2 10 3/mcL Normal 0.0-0.7 [facility] ([place]) Comment on above: Performed By: #### M G #### [address] [address] Eosinophils/100 WBC (Bld) 2.7 % Normal 0.0-6.0 [facility] ([place]) Comment on above: Performed By: #### M G #### [address] [address] Lymphocyte, Absolute 2.3 10 3/mcL Normal 0.9-4.3 [facility] ([place]) Comment on above: Performed By: #### M G #### [address] [address] Lymphocytes/100 WBC (Bld) 31.8 % Normal 20.0-40.0 [facility] ([place]) Comment on above: Performed By: #### M G #### [address] [address] Monocyte, Absolute 0.7 10 3/mcL Normal 0.1-1.4 [facility] ([place]) Comment on above: Performed By: #### M G #### [address] [address] Monocytes/100 WBC (Bld) 9.6 % Normal 2.0-13.0 [facility] ([place]) Comment on above: Performed By: #### M G #### [address] [address] Neutrophils/100 WBC (Bld) 55.0 % Normal 50.0-75.0 [facility] ([place]) Comment on above: Performed By: #### M G #### [address] [address] .GFRon 06-21-2023 GFR Non- 53 ml/min/1.73sqm Normal [facility] ([place]) Comment on above: Result Comment: GFR Population mean for , Non- Americans Ages 20-29 = 116 mL/min/1.73 sq.m. Ages 30-39 = 107 mL/min/1.73 sq.m. Ages 40-49 = 99 mL/min/1.73 sq.m. Ages 50-59 = 93 mL/min/1.73 sq.m. Ages 60-69 = 85 mL/min/1.73 sq.m. Ages 70+ = 75 mL/min/1.73 sq.m. Chronic Kidney Disease: Less than 60 mL/min/1.73 square meters End Stage Renal Disease: Less than 15 mL/min/1.73 square meters Performed By: #### U A #### [address] [address] GFR >60 Normal [facility] ([place]) Comment on above: Result Comment: GFR Population mean for , Non- Americans Ages 20-29 = 116 mL/min/1.73 sq.m. Ages 30-39 = 107 mL/min/1.73 sq.m. Ages 40-49 = 99 mL/min/1.73 sq.m. Ages 50-59 = 93 mL/min/1.73 sq.m. Ages 60-69 = 85 mL/min/1.73 sq.m. Ages 70+ = 75 mL/min/1.73 sq.m. Chronic Kidney Disease: Less than 60 mL/min/1.73 square meters End Stage Renal Disease: Less than 15 mL/min/1.73 square meters Performed By: #### U A #### [place] [address] .MDWon 06-21-2023 Monocyte Distribution Width 19.21 Normal 0.00-20.00 [facility] ([place]) Comment on above: Result Comment: For ED adult patients suspected of sepsis, MDW<=20.0 does not rule out sepsis or risk of sepsis Performed By: #### U A #### [place] [address] .NEUABSon 06-21-2023 Neutrophil, Absolute 4.0 10 3/mcL Normal 2.3-8.1 [facility] ([place]) Comment on above: Performed By: #### M G #### [place] [address] CBCon 06-21-2023 Erythrocyte distribution width (RBC) [Ratio] 14.4 % Normal 11.5-15.5 [facility] ([place]) Comment on above: Performed By: #### M G #### [place] [address] Hematocrit (Bld) [Volume fraction] 48.9 % High 34.0-46.0 [facility] ([place]) Comment on above: Performed By: #### M G #### [place] [address] Hgb 16.1 G/dL High 12.0-16.0 [facility] ([place]) Comment on above: Performed By: #### M G #### [place] [id number] MCH (RBC) [Entitic mass] 30.4 pg Normal 27.0-33.0 [facility] ([place]) Comment on above: Performed By: #### M G #### [place] [address] MCHC 33.1 G/dL Normal 32.0-36.0 [facility] ([place] Comment on above: Performed By: #### M G #### [place] [address] MCV (RBC) [Entitic vol] 92.1 fL Normal 80.0-99.0 [facility] ([place] Comment on above: Performed By: #### M G #### [place] [address] Platelet 319 10 3/mcL Normal 150-450 [facility] ([place] Comment on above: Performed By: #### M G #### [place] [address] Platelet mean volume (Bld) [Entitic vol] 10.5 fL Normal 6.6-10.5 [facility] ([place] Comment on above: Performed By: #### M G #### [place] [address] RBC 5.31 10 6/mcL High 4.10-5.30 [facility] ([place] Comment on above: Performed By: #### M G #### [place] [id number] WBC 7.4 10 3/mcL Normal 4.5-10.8 [facility] ([place]) Comment on above: Performed By: #### M G #### [place] [id number] CMPon 03-06-2024 Albumin Level 5.1 G/dL High 3.2-4.8 [facility] ([place]) Comment on above: Performed By: #### U A #### [address] [address] Albumin/Globulin [Mass ratio] 1.4 {ratio} Normal 0.9-1.6 [facility] ([place]) Comment on above: Performed By: #### U A #### [address] [address] ALP [Catalytic activity/Vol] 114 U/L Normal 38-126 [facility] ([place] Comment on above: Performed By: #### U A #### [address] [address] ALT [Catalytic activity/Vol] 96 U/L High 10-49 [facility] ([place] Comment on above: Performed By: #### U A #### [place] [id number] AST [Catalytic activity/Vol] 117 U/L High 8-34 [facility] ([place] Comment on above: Performed By: #### U A #### [address] [address] Bili Total 0.70 mg/dL Normal 0.20-1.20 [facility] ([place]) Comment on above: Result Comment: Use of this assay is not recommended for patients undergoing treatment with eltrombopag due to the potential for falsely elevated results. Performed By: #### U A #### [place] [id number] BUN/Creatinine Ratio 21.7 ratio Normal 10.0-22.0 [facility] ([place]) Comment on above: Performed By: #### U A #### [address] [address] Calcium [Mass/Vol] 10.5 mg/dL High 8.7-10.4 [facility] ([place]) Comment on above: Performed By: #### U A #### [address] [address] Chloride [Moles/Vol] 103 mmol/L Normal 98-110 [facility] ([place]) Comment on above: Performed By: #### U A #### [address] [address] CO2 [Moles/Vol] 26 mmol/L Normal 22-32 [facility] ([place] Comment on above: Performed By: #### U A #### [address] [address] Creatinine [Mass/Vol] 1.06 mg/dL Normal 0.50-1.20 [facility] ([place] Comment on above: Performed By: #### U A #### [address] [address] Electrolyte Balance 11.0 mEq/L Normal 4.0-15.0 [facility] [place] Comment on above: Performed By: #### U A #### [address] [address] Globulin 3.7 G/dL Normal 1.5-3.8 [facility] ([place] Comment on above: Performed By: #### U A #### [address] [address] Glucose [Mass/Vol] 81 mg/dL Low 82-115 [facility] ([place] Comment on above: Performed By: #### U A #### [address] [address] Potassium [Moles/Vol] 3.1 mmol/L Low 3.5-5.0 [facility] ([place] Comment on above: Performed By: #### U A #### [address] [address] Sodium [Moles/Vol] 140 mmol/L Normal 136-145 [facility] ([place]) Comment on above: Performed By: #### U A #### [address] [address] Total Protein 8.8 G/dL High 5.7-8.2 [facility] ([place]) Comment on above: Result Comment: No te - New Reference Range in effect 19 Performed By: #### U A #### [address] [place], [place] [address] Urea nitrogen [Mass/Vol] 23.0 mg/dL High 8.0-22.0 [facility] ([place]) Comment on above: Performed By: #### U A #### [address] [address] CRPon 06-21-2023 C-Reactive Protein 0.4 mg/dL Normal 0.0-1.0 [facility] ([place]) Comment on above: Result Comment: No te - New Reference Range in effect 19 Performed By: #### L AC, ESR, CRP, TSH #### [address] [address] [address] ABD/PELVIS W/ IV CONTRAST ONLYon 06-21-2023 CT ABD/PELVIS W/ IV CONTRAST ONLY ORIGINAL EXAMINATION: CT OF THE ABDOMEN AND PELVIS WITH CONTRAST 06/21/2023 3:30 pm TECHNIQUE: CT of the abdomen and pelvis was performed with the administration of intravenous contrast. Multiplanar reformatted images are provided for review. Automated exposure control, iterative reconstruction, and/or weight based adjustment of the mA/kV was utilized to reduce the radiation dose to as low as reasonably achievable. COMPARISON: None. HISTORY: ORDERING SYSTEM PROVIDED HISTORY: Reason for Exam: MID ABD PAIN, INTERMITTENT N/D X 9 DAYS abdominal pain FINDINGS: Lower Chest: Moderate-large decompressed hiatal hernia. Otherwise, no acute abnormality visualized lower thorax. Organs: 2.7 cm subcapsular hypodense mass right hepatic lobe axial images 23-28 series 2, smaller similar appearing hypodense mass medial segment left hepatic lobe axial images 21 and 22 sequence 2 measuring 1.1 cm.. Density values suggest cyst however, liver ultrasound suggested for further evaluation. Diffuse hypoattenuation of the liver relative the spleen also noted consistent with steatosis. Otherwise, no acute CT abnormality visualized abdominal organs. GI/Bowel: Partial distension and air-fluid leveling distal small bowel and throughout the large bowel to the level of mid descending colon. Maximal small bowel diameter is 1.9 cm. No pathologic distention GI tract, bowel wall edema or mucosal thickening. Unremarkable postoperative changes noted in the right colon. Appearance is consistent with mild ileus or enteritis. Moderate-large decompressed hiatal hernia noted. Otherwise, no acute CT abnormality. Pelvis: No acute CT abnormality. Peritoneum/Retroperitoneum: Postoperative no acute abnormality. Bones/Soft Tissues: Postoperative and degenerative changes lower lumbar spine L2 through S1. Severe bilateral foraminal stenosis and exiting nerve compression noted L4-L5 and L5-S1. Otherwise, no acute abnormality IMPRESSION: Air-fluid leveling and partial distention distal small bowel and throughout the large intestine to the level of mid descending colon with maximal small bowel diameter 1.9 cm. Appearance is most consistent with mild ileus, enteritis or reactive bowel-gas pattern. Moderate-large decompressed hiatal hernia. 2 hypodense masses in the liver as described measuring 2.7 cm in greatest dimension. Density values suggest cyst however, hepatic ultrasound suggested for further evaluation. Postoperative and degenerative changes throughout the lumbar spine L2 through S1. Correlation with clinical evidence of radiculopathy L4-L5 and L5-S1 distribution suggested.. Interpreted by: Eliu Finney DO Preliminary Report By: Eliu Finney DO Electronically signed By Eliu Finney DO Dictated Date: 06/21/2023 3:35:02 PM Prelim Date: 06/21/2023 3:45:51 PM Sign Date: 06/21/2023 3:45:51 PM Ordering Provider: LEXII Ribeiro [facility]) [facility] 06-21-2023 D-Dimer HS <200 Normal 0-230 [facility]) Comment on above: Result Comment: DDN: Results reported in D-DU ng/mL. Negative for D-dimer. DVT/PE is highly unlikely. Note: False negative results may be seen in patients on anticoagulant therapy. The result of the D-Dimer test should be evaluated in the context of all the clinical and laboratory data available. In those instances where the laboratory result does not agree with the clinical evaluation, additional tests should be performed accordingly. Performed By: #### D DHS #### [address] [address] ESRon 06-21-2023 Erythrocyte Sed Rate 20 mm/hr Normal 0-30 [facility] ([place]) Comment on above: Performed By: #### L AC, ESR, CRP, TSH #### [address] [address] LABORATORYOrdered By: Erna Hayes on 06-21-2023 D-Dimer HS ng/mL D-DU Normal 0 - 230 ng/mL D-DU [facility] SS Comment on above: Result Comment: DDN: Results reported in D-DU ng/mL. Negative for D-dimer. DVT/PE is highly unlikely. Note: False negative results may be seen in patients on anticoagulant therapy. Interpretive Data: T he result of the D-Dimer test should be evaluated in the context of all the clinical and laboratory data available. In those instances where the laboratory result does not agree with the clinical evaluation, additional tests should be performed accordingly. LABORATORYOrdered By: Viktoria Ruffin on 06-21-2023 Lactate [Moles/Vol] 1.7 mmol/L Normal 0.2 - 2. 0 mmol/L Auto Chem SS LABORATORYOrdered By: SYSTEM SYSTEM on 06-21-2023 CRP [Mass/Vol] 0.4 mg/dL Normal 0.0 - 1.0 mg/dL ADM SS Comment on above: Interpretive Data: * *Note - New Reference Range in effect 19 Magnesium [Mass/Vol] 2.1 mg/dL Normal 1.6 - 2 .4 mg/dL ADM SS TSH Qn 1.237 mIU/mL Normal 0.550 - 4.780 mIU/mL ADM SS Comment on above: Interpretive Data: * *Note - New Reference Range in effect 19 Albumin BCP dye [Mass/Vol] 5.1 G/dL High 3.2 - 4.8 G/dL ADM SS Albumin/Globulin [Mass ratio] 1.4 {ratio} Normal 0.9 - 1.6 ratio ADM SS ALP [Catalytic activity/Vol] 114 U/L Normal 38 - 126 U/L ADM SS ALT No additional P-5'-P [Catalytic activity/Vol] 96 U/L High 10 - 49 U/L AH ADM SS AST [Catalytic activity/Vol] 117 U/L High 8 - 34 U/L AH ADM SS Basophils (Bld) [#/Vol] 0.1 103/mcL Normal 0.0 - 0.3 10^3/mcL Workflow SS Basophils/100 WBC (Bld) 0.9 % Normal 0.0 - 2.5 % Workflow SS Bilirubin [Mass/Vol] 0.70 mg/dL Normal 0.20 - 1.20 mg/dL ADM SS Comment on above: Interpretive Data: U se of this assay is not recommended for patients undergoing treatment with eltrombopag due to the potential for falsely elevated results. Calcium [Mass/Vol] 10.5 mg/dL High 8.7 - 10. 4 mg/dL ADM SS Chloride [Moles/Vol] 103 mmol/L Normal 98 - 11 0 mEq/L ADM SS CO2 [Moles/Vol] 26 mmol/L Normal 22 - 32 mEq/L ADM SS Creatinine [Mass/Vol] 1.06 mg/dL Normal 0.50 - 1.20 mg/dL ADM SS Electrolyte Balance 11.0 mEq/L Normal 4.0 - 15 .0 mEq/L ADM SS Eosinophils (Bld) [#/Vol] 0.2 103/mcL Normal 0.0 - 0.7 10^3/mcL Workflow SS Eosinophils/100 WBC (Bld) 2.7 % Normal 0.0 - 6.0 % Workflow SS Erythrocyte distribution width (RBC) [Ratio] 14.4 % Normal 11.5 - 15.5 % Workflow SS GFR/1.73 sq M.predicted among blacks MDRD (S/P/Bld) [Vol rate/Area] ml/min/1.73sqm Invalid Interpretation Code ADM SS Comment on above: Interpretive Data: GFR Population mean for , Non- Americans Ages 20-29 = 116 mL/min/1.73 sq.m. Ages 30-39 = 107 mL/min/1.73 sq.m. Ages 40-49 = 99 mL/min/1.73 sq.m. Ages 50-59 = 93 mL/min/1.73 sq.m. Ages 60-69 = 85 mL/min/1.73 sq.m. Ages 70+ = 75 mL/min/1.73 sq.m. Chronic Kidney Disease: Less than 60 mL/min/1.73 square meters End Stage Renal Disease: Less than 15 mL/min/1.73 square meters GFR/1.73 sq M.predicted among non-blacks MDRD (S/P/Bld) [Vol rate/Area] 53 ml/min/1.73sqm Invalid Interpretation Code ADM SS Comment on above: Interpretive Data: GFR Population mean for , Non- Americans Ages 20-29 = 116 mL/min/1.73 sq.m. Ages 30-39 = 107 mL/min/1.73 sq.m. Ages 40-49 = 99 mL/min/1.73 sq.m. Ages 50-59 = 93 mL/min/1.73 sq.m. Ages 60-69 = 85 mL/min/1.73 sq.m. Ages 70+ = 75 mL/min/1.73 sq.m. Chronic Kidney Disease: Less than 60 mL/min/1.73 square meters End Stage Renal Disease: Less than 15 mL/min/1.73 square meters Globulin 3.7 G/dL Normal 1.5 - 3.8 G/dL AH ADM SS Glucose [Mass/Vol] 81 mg/dL Low 82 - 115 mg/dL AH ADM SS Hematocrit (Bld) [Volume fraction] 48.9 % High 34.0 - 46.0 % AH Workflow SS Hemoglobin (Bld) [Mass/Vol] 16.1 G/dL High 12.0 - 16.0 G/dL AH Workflow SS Lipase [Catalytic activity/Vol] 43 U/L Normal 12 - 53 U/L AH ADM SS Comment on above: Interpretive Data: * *Note - New Reference Range in effect 19 Lymphocytes (Bld) [#/Vol] 2.3 103/mcL Normal 0.9 - 4.3 10^3/mcL AH Workflow SS Lymphocytes/100 WBC (Bld) 31.8 % Normal 20.0 - 40.0 % AH Workflow SS MCH (RBC) [Entitic mass] 30.4 pg Normal 27.0 - 33.0 pg AH Workflow SS MCHC 33.1 G/dL Normal 32.0 - 36.0 G/dL AH Workflow SS MCV (RBC) [Entitic vol] 92.1 fL Normal 80.0 - 99.0 fL AH Workflow SS Monocyte distribution width Auto (Bld) [Entitic vol] 19.21 1 Normal 0.00 - 20.00 AH Workflow SS Comment on above: Result Comment: For ED adult patients suspected of sepsis, MDW<=20.0 does not rule out sepsis or risk of sepsis Monocytes (Bld) [#/Vol] 0.7 103/mcL Normal 0.1 - 1.4 10^3/mcL AH Workflow SS Monocytes/100 WBC (Bld) 9.6 % Normal 2.0 - 13.0 % AH Workflow SS Neutrophils (Bld) [#/Vol] 4.0 103/mcL Normal 2.3 - 8.1 10^3/mcL AH Workflow SS Neutrophils/100 WBC (Bld) 55.0 % Normal 50.0 - 75.0 % AH Workflow SS Platelet mean volume (Bld) [Entitic vol] 10.5 fL Normal 6.6 - 10.5 fL AH Workflow SS Platelets (Bld) [#/Vol] 319 103/mcL Normal 150 - 450 10^3/mcL AH Workflow SS Potassium [Moles/Vol] 3.1 mmol/L Low 3.5 - 5.0 mEq/L AH ADM SS Protein [Mass/Vol] 8.8 G/dL High 5.7 - 8.2 G/dL AH ADM SS Comment on above: Interpretive Data: * *Note - New Reference Range in effect 19 RBC (Bld) [#/Vol] 5.31 106/mcL High 4.10 - 5.30 10^6/mcL AH Workflow SS Sodium [Moles/Vol] 140 mmol/L Normal 136 - 145 mEq/L AH ADM SS Troponin I.cardiac DL <= 0.01 ng/mL [Mass/Vol] 8.00 ng/L Normal 0.00 - 34.00 ng/L AH ADM SS Urea nitrogen [Mass/Vol] 23.0 mg/dL High 8.0 - 22.0 mg/dL AH ADM SS Urea nitrogen/Creatinine [Mass ratio] 21.7 ratio Normal 10.0 - 22.0 ratio AH ADM SS WBC (Bld) [#/Vol] 7.4 103/mcL Normal 4.5 - 10.8 10^3/mcL AH Workflow SS LABORATORYOrdered By: Sim Paez on 06-21-2023 ESR 15 minute reading (Bld) [Velocity] 20 mm/hr Normal 0 - 30 mm/hr Auto Heme SS LABORATORYOrdered By: Gertrudis Valenzuela on 06-21-2023 Lactate [Moles/Vol] 2.0 mmol/L Normal 0.2 - 2. 0 mmol/L Auto Chem SS LABORATORYOrdered By: Georgie Mccartney on 06-21-2023 Appearance (U) Clear (06/21/23 12:49 PM) Normal Clear Auto Urine SS Bilirubin Ql (U) Negative (06/21/23 12:49 PM) Normal Neg-Trace AH Auto Urine SS Color (U) Dark Yellow *NA* (06/21/23 12:49 PM) Invalid Interpretation Code AH Auto Urine SS Glucose Test strip (U) [Mass/Vol] Negative Normal Negative AH Auto Urine SS Hemoglobin Auto test strip (U) [Mass/Vol] Negative (06/21/23 12:49 PM) Normal Neg-Trace AH Auto Urine SS Ketones Ql (U) 15 mg/dL Invalid Interpretation Code Neg-Trace AH Auto Urine SS UA Leuk Est Trace *NA* (06/21/23 12:49 PM) Invalid Interpretation Code Negative AH Auto Urine SS UA Nitrite Negative (06/21/23 12:49 PM) Normal Negative Auto Urine SS UA pH 6.0 (06/21/23 12:49 PM) Normal 5.0 - 8.0 AH Auto Urine SS UA Protein 30 mg/dL Normal Negative Auto Urine SS UA Spec Grav >=1.030 *ABN* (06/21/23 12:49 PM) Invalid Interpretation Code 1.006-1.02 9 Auto Urine SS UA Specimen Type Clean Catch (06/21/23 12:49 PM) Normal Auto Urine SS UA Urobilinogen 0.2 E.U./dL Normal 0.2-1.0 Auto Urine SS LACon 06-21-2023 Lactic Acid Lvl 1.7 mmol/L Normal 0.2-2.0 [facility] ([place]) Comment on above: Order Comment: Order ed secondary to Lactic Acid result greater than or equal to 2.0 Performed By: #### U A #### [address] [address] Lactic Acid Lvl 2.0 mmol/L Normal 0.2-2.0 [facility] ([place]) Comment on above: Performed By: #### L AC, ESR, CRP, TSH #### [address] [address] LIPon 06-21-2023 Lipase Level 43 U/L Normal 12-53 [facility] ([place]) Comment on above: Result Comment: No te - New Reference Range in effect 19 Performed By: #### U A #### [address] [address] MGon 06-21-2023 Magnesium [Mass/Vol] 2.1 mg/dL Normal 1.6-2.4 [facility] ([place]) Comment on above: Performed By: #### M G #### [place] [id number] TROPHSon 06-21-2023 Troponin I High Sensitivity 8.00 ng/L Normal 0.00-34.00 [facility] ([place]) Comment on above: Performed By: #### U A #### [place] [id number] TSHon 06-21-2023 TSH 1.237 mIU/mL Normal 0.550-4.78 0 [facility] ([place]) Comment on above: Result Comment: No te - New Reference Range in effect 19 Performed By: #### L AC, ESR, CRP, TSH #### [place] [address] UAon 06-21-2023 Color (U) Dark Yellow Normal [facility] ([place]) Comment on above: Performed By: #### U A #### [place] [address] Glucose (U) [Mass/Vol] Negative Normal Negative [facility] ([place]) Comment on above: Performed By: #### U A #### [place] [address] Ketones Ql (U) 15 mg/dL Abnormal Neg-Trace [facility] ([place]) Comment on above: Performed By: #### U A #### [place] [id number] UA Appear Clear Normal Clear [facility] ([place] Comment on above: Performed By: #### U A #### [place] [id number] UA Blood Negative Normal Neg-Trace [facility] ([place] Comment on above: Performed By: #### U A #### [address] [address] UA Leuk Est Trace Normal Negative [facility] ([place]) Comment on above: Performed By: #### U A #### [address] [address] UA Nitrite Negative Normal Negative [facility] ([place] Comment on above: Performed By: #### U A #### [address] [address] UA pH 6.0 Normal 5.0 - 8.0 [facility] ([place]) Comment on above: Performed By: #### U A #### [address] [address] UA Protein 30 mg/dL Normal Negative [facility] ([place] Comment on above: Performed By: #### U A #### [place] [address] UA Spec Grav >=1.030 Abnormal 1.006-1.02 9 [facility] ([place] Comment on above: Performed By: #### U A #### [place] [address] UA Specimen Type Clean Catch Normal [facility] ([place] Comment on above: Performed By: #### U A #### [address] [address] UA Urobilinogen 0.2 E.U./dL Normal 0.2-1.0 [facility] ([place] Comment on above: Performed By: #### U A #### [place] [address] Urobilinogen (U) [Mass/Vol] Negative Normal Neg-Trace [facility] ([place]) Comment on above: Performed By: #### U A #### [place] [id number] NM MYOCARDIAL SPECT STRESS/R ESTon 11-28-2022 NM MYOCARDIAL SPECT STRESS/REST ORIGINAL NM MYOCARDIAL SPECT STRESS/REST CLINICAL STATEMENT: SOB, CP TECHNIQUE: Lexiscan dose:0.4 mg Radiopharmaceutical (stress): Tc-99m Sestamibi Dose:27.5 mCi Radiopharmaceutical (rest): Tc-99m Sestamibi Dose:8.5 mCi SPECT acquisition and processing Reconstruction and reorientation of SPECT images into short axis, vertical and horizontal long axis planes Quantitative LVEF assessment COMPARISON:None REPORT:Overall, image quality is good. Rotating planar images show no significant patient motion. SPECT perfusion images during rest and stress show homogenous radiotracer uptake. No defects to suggest ischemia or infarction. GATED SPECT images show normal LV size and function. LVEF calculated at 59% IMPRESSION: 1. No evidence for ischemia. 2. No evidence for infarction. 3. Normal LV size and function. 4. No previous for comparison. Interpreted By: Evans Cervantes Preliminary Report By: Evans Cervantes Electronically Signed By: Evans Cervantes Dictated Date: 11/28/2022 3:02:51 PM Prelim Date: 11/28/2022 3:02:51 PM Sign Date: 11/28/2022 3:07:23 PM Ordering Provider:Wesley Mccarty [facility]) CATTutu 11-12-2022 Catechol Int See Note [facility]) Comment on above: Result Comment: TEST INFORMATION: Catecholamines Fractionated, Urine Free Smaller increases in catecholamine concentrations (less than two times the upper limit) usually are the result of physiological stimuli, drugs, or improper specimen collection. Significant elevation of one or more catecholamines (three or more times the upper reference limit) is associated with an increased probability of a neuroendocrine tumor. Access complete set of age- and/or gender-specific reference intervals for this test in the [facility] Test Directory ([facility]). This test was developed and its performance characteristics determined by [facility]. It has not been cleared or approved by the [place] Food and Drug Administration. This test was performed in a CLIA certified laboratory and is intended for clinical purposes. Performed By: #### U A #### [address] [address] Creatinine [Mass/Vol] 197 mg/dL Normal [facility]) Comment on above: Performed By: #### U A #### [address] [address] Creatinine Ur, per 24h 1379 mg/day Normal 500-1400 [facility]) Comment on above: Result Comment: Perf ormed by [facility], [address] [place] [address] [email or web address], Kei Mccullough MD, PHD, Lab. Director Performed By: #### U A #### [address] [address] Hours Collected 24 hr Normal [facility] ([place]) Comment on above: Result Comment: Per 24h calculations are provided to aid interpretation for collections with a duration of 24 hours and an average daily urine volume. For specimens with notable deviations in collection time or volume, ratios of analytes to a corresponding urine creatinine concentration may assist in result interpretation. Performed By: #### U A #### [address] [address] Total Volume, Urine 700 ml [facility] ([place]) Comment on above: Performed By: #### U A #### [address] [address] U Dopamine Rat 184 UG/G CREAT Normal 0-250 [facility] ([place]) Comment on above: Performed By: #### U A #### [address] [address] U Dopamine Vol 362 UG/L [facility] ([place]) Comment on above: Performed By: #### U A #### [address] [address] U Epinephrine Rat 3 UG/G CREAT Normal 0-20 [facility] [place] Comment on above: Performed By: #### U A #### [address] [address] U Epinephrine Vol 5 UG/L [facility] ([place]) Comment on above: Performed By: #### U A #### [address] [address] U Norepinephrine Rat 70 UG/G CREAT High 0-45 [facility] ([place]) Comment on above: Performed By: #### U A #### [address] [address] U Norepinephrine Vol 138 UG/L [facility] ([place]) Comment on above: Performed By: #### U A #### [address] [address] U24 Dopamine 253 ug/d Normal 71-485 [facility] ([place]) Comment on above: Result Comment: REFE RENCE INTERVAL: Dopamine, Urine - ug/d Access complete set of age- and/or gender-specific reference intervals for this test in the [facility] Test Directory ([facility]). Performed By: #### U A #### [place] [id number] U24 Epinephrine 4 ug/d Normal 1-14 [facility] ([place]) Comment on above: Result Comment: REFE RENCE INTERVAL: Epinephrine, Urine - ug/d Access complete set of age- and/or gender-specific reference intervals for this test in the [facility] Test Directory ([facility]). Performed By: #### U A #### [place] [address] U24 Norepinephrine 97 ug/d Normal 14-120 [facility] ([place]) Comment on above: Result Comment: REFE RENCE INTERVAL: Norepinephrine, Urine - ug/d Access complete set of age- and/or gender-specific reference intervals for this test in the [facility] ([facility]). Performed By: #### U A #### [place] [id number] Basophil percentageOrdered B y: Dr. Caballero on 09-16-2022 Bilirubin [Mass/Vol] 0.60 mg/dL 0.20-1.00 [facility] Comment on above: For patients on eltr ombopag therapy, use of Dimension [place] TBIL is not recommended. Chloride [Moles/Vol] 108 mmol/L 98-107 [facility] Glucose [Mass/Vol] 102 mg/dL 74-106 [facility] Comment on above: Fasting Glucose resu lt from 100 to 125 mg/dL suggests IMPAIRED HOMEOSTASIS per A.D.A. criteria. Lactate [Moles/Vol] 1.4 mmol/L 0.4-2.0 [facility] Potassium [Moles/Vol] 4.1 mmol/L 3.5-5.1 [facility] Protein [Mass/Vol] 7.9 g/dL 6.4-8.2 [facility] Sodium [Moles/Vol] 141 mmol/L 136-145 [facility] Direct bilirubinOrdered By: Dr. Caballero on 09-16-2022 Bilirubin.direct [Mass/Vol] 0.16 mg/dL 0.00-0.30 [facility] Laboratory - Chemistry and C hemistry - challengeOrdered By: Dr. Caballero on 09-16-2022 ALP [Catalytic activity/Vol] 158 U/L 45-117 [facility] ALT [Catalytic activity/Vol] 92 U/L 13-56 [facility] CO2 [Moles/Vol] 28.0 mmol/L 21.0-32.0 [facility] Globulin (S) [Mass/Vol] 4.0 g/dL 2.2-4.2 [facility] Lipase [Catalytic activity/Vol] 27 U/L 13-75 [facility] Comment on above: Please note:LIPASE r evised reference range effective 22. New Lipase methodology. Expected to produce lower values than the previous assay method. NEW Reference Range: 13 - 75 U/L Urea nitrogen/Creatinine [Mass ratio] 23.5 mg/mg 10-20 [facility] No Panel InformationOrdered By: Dr. Caballero on 09-16-2022 Estimated Creatinine Clearance Calc 47.81 ml/min [facility] Estimated GFR (MDRD) Amer 71 mL/min >60 [facility] Comment on above: GFR Calc Estimated GFR (MDRD) Non-Af Amer 59 mL/min >60 [facility] Comment on above: Non- GFR Calc Serum or plasma albumin sravani urement (mass/volume)Ordered By: Dr. Caballero on 09-16-2022 Albumin [Mass/Vol] 3.9 g/dL 3.2-5.0 [facility] Serum or plasma calcium sravani urement (mass/volume)Ordered By: Dr. Caballero on 09-16-2022 Calcium [Mass/Vol] 9.5 mg/dL 8.5-10.1 [facility] Serum or plasma creatinine m easurement (mass/volume)Ordered By: Dr. Caballero on 09-16-2022 Creatinine [Mass/Vol] 1.02 mg/dL 0.55-1.02 [facility] Comment on above: The validity of the calculated GFR & GFRAA in patients over 70 years has not been determined. Clinical correlation is essential. Serum or plasma urea nitroge n measurement (mass/volume)Ordered By: Dr. Caballero on 09-16-2022 Urea nitrogen [Mass/Vol] 24 mg/dL 7-18 [facility] Thin prep Papanicolaou smear with manual screeningOrdered By: Dr. Caballero on 09-16-2022 Thin prep Papanicolaou smear with manual screening 62 U/L 15-37 [facility] Thin prep Papanicolaou smear with manual screening 5 5-15 [facility] METPon 09-08-2022 Metanephrine, Fract Plasma 35 pg/mL Normal 12-67 [facility] ([place]) Comment on above: Result Comment: Refe rence Ranges: Hypertensive adult > or = 18 yrs old: 12-72 pg/mL Normotensive adult > or = 18 yrs old: 12-67 pg/mL Normotensive children < 18 yrs old: 10-95 pg/mL Performed By: [facility] [address] [place] [address] [employer] Feeder: Amira Feliciano IIIIA#: [id number] Performed By: #### M G #### [facility] [address] [place] [address] Normetanephrine, Fract Plasma 158 pg/mL High 18-101 [facility] ([place]) Comment on above: Result Comment: Refe rence Ranges: Hypertensive adult > or = 18 yrs old: 24-145 pg/mL Normotensive adult > or = 18 yrs old: 18-101 pg/mL Normotensive children < 18 yrs old: 22-83 pg/mL Methyldopa may cause false elevation of normetanephrine levels in this assay. If patient is on methyldopa, interpret results with caution. Plasma Free Metanephrine test performed by Liquid Chromatography Tandem Mass Spectrometry (LC/MS/MS). Results obtained with different methods or kits cannot be used interchangeably. This test was developed and its performance characteristics determined by [facility]'s [facility] [place] ([facility]). It has not been cleared or approved by the FDA. [facility] is regulated under CLIA as qualified to perform high-complexity testing. This test is used for clinical purposes. It should not be regarded as investigational or for research. Performed By: [place] [address] [employer] Feeder: Wilton Galicia III, M.D. CLIA#: [id number] Performed By: #### M G #### [place] [address] Abelardo 08-29-2022 Thyroid Stim. Imm-Glob. <0.10 Normal <0.55 [facility] ([place]) Comment on above: Result Comment: Thyr oid Stimulating Immunoglobulin test is used as an aid in diagnosis of autoimmune hyperthyroidism especially in patients with Grave's orbitopathy and dermopathy. Low positive TSH receptor stimulating antibody levels may occasionally be found in patients with autoimmune hypothyroidism. Clinical correlation is required. Performed By: [place] [address] [employer] Feeder: Wilton Galicia III, M.D. CLIA#: [id number] Performed By: #### M G #### [place] [address] TSI Qualitative Negative Normal Negative [facility] ([place]) Comment on above: Result Comment: Perf ormed By: [place] [address] [employer] Feeder: Wilton Galicia III, M.D. CLIA#: [id number] Performed By: #### M G #### [place] [address] .Auto Diffon 08-26-2022 Basophil, Absolute 0.1 10 3/mcL Normal 0.0-0.2 [facility] ([place]) Comment on above: Performed By: #### F T3, CMP, GFR, ANEU, TSH, PMETAN, TSIG, CBC, ADIFF, FT4 #### [address] [address] Basophils/100 WBC (Bld) 1.0 % Normal 0.0-2.5 [facility] ([place]) Comment on above: Performed By: #### F T3, CMP, GFR, ANEU, TSH, PMETAN, TSIG, CBC, ADIFF, FT4 #### [address] [address] Eosinophil, Absolute 0.2 10 3/mcL Normal 0.0-0.4 [facility] ([place]) Comment on above: Performed By: #### F T3, CMP, GFR, ANEU, TSH, PMETAN, TSIG, CBC, ADIFF, FT4 #### [address] [address] Eosinophils/100 WBC (Bld) 4.0 % Normal 0.0-7.0 [facility] ([place] Comment on above: Performed By: #### F T3, CMP, GFR, ANEU, TSH, PMETAN, TSIG, CBC, ADIFF, FT4 #### [address] [address] Lymphocyte, Absolute 2.2 10 3/mcL Normal 0.8-3.9 [facility] ([place]) Comment on above: Performed By: #### F T3, CMP, GFR, ANEU, TSH, PMETAN, TSIG, CBC, ADIFF, FT4 #### [address] [address] Lymphocytes/100 WBC (Bld) 37.7 % Normal 10.0-50.0 [facility] ([place] Comment on above: Performed By: #### F T3, CMP, GFR, ANEU, TSH, PMETAN, TSIG, CBC, ADIFF, FT4 #### [address] [address] Monocyte, Absolute 0.5 10 3/mcL Normal 0.2-1.0 [facility] ([place] Comment on above: Performed By: #### F T3, CMP, GFR, ANEU, TSH, PMETAN, TSIG, CBC, ADIFF, FT4 #### [address] [address] Monocytes/100 WBC (Bld) 8.3 % Normal 1.7-13.0 [facility] ([place] Comment on above: Performed By: #### F T3, CMP, GFR, ANEU, TSH, PMETAN, TSIG, CBC, ADIFF, FT4 #### [address] [address] Neutrophils/100 WBC (Bld) 49.0 % Normal 37.0-80.0 [facility] ([place] Comment on above: Performed By: #### F T3, CMP, GFR, ANEU, TSH, PMETAN, TSIG, CBC, ADIFF, FT4 #### [address] [address] .GFRon 08-26-2022 GFR Non- 71 ml/min/1.73sqm Normal [facility] ([place] Comment on above: Result Comment: GFR Population mean for , Non- Americans Ages 20-29 = 116 mL/min/1.73 sq.m. Ages 30-39 = 107 mL/min/1.73 sq.m. Ages 40-49 = 99 mL/min/1.73 sq.m. Ages 50-59 = 93 mL/min/1.73 sq.m. Ages 60-69 = 85 mL/min/1.73 sq.m. Ages 70+ = 75 mL/min/1.73 sq.m. Chronic Kidney Disease: Less than 60 mL/min/1.73 square meters End Stage Renal Disease: Less than 15 mL/min/1.73 square meters Performed By: #### M G #### [address] [address] GFR 86 ml/min/1.73sqm Normal [facility] ([place] Comment on above: Result Comment: GFR Population mean for , Non- Americans Ages 20-29 = 116 mL/min/1.73 sq.m. Ages 30-39 = 107 mL/min/1.73 sq.m. Ages 40-49 = 99 mL/min/1.73 sq.m. Ages 50-59 = 93 mL/min/1.73 sq.m. Ages 60-69 = 85 mL/min/1.73 sq.m. Ages 70+ = 75 mL/min/1.73 sq.m. Chronic Kidney Disease: Less than 60 mL/min/1.73 square meters End Stage Renal Disease: Less than 15 mL/min/1.73 square meters Performed By: #### M G #### [address] [address] .NEUABSon 08-26-2022 Neutrophil, Absolute 2.9 10 3/mcL Normal 2.9-6.2 [facility] ([place]) Comment on above: Performed By: #### F T3, CMP, GFR, ANEU, TSH, PMETAN, TSIG, CBC, ADIFF, FT4 #### [address] [address] CBCon 08-26-2022 Erythrocyte distribution width (RBC) [Ratio] 14.4 % Normal 11.5-14.5 [facility] ([place] Comment on above: Performed By: #### F T3, CMP, GFR, ANEU, TSH, PMETAN, TSIG, CBC, ADIFF, FT4 #### [address] [address] Hematocrit (Bld) [Volume fraction] 38.9 % Normal 37.0-47.0 [facility] ([place] Comment on above: Performed By: #### F T3, CMP, GFR, ANEU, TSH, PMETAN, TSIG, CBC, ADIFF, FT4 #### [address] [address] Hgb 12.8 G/dL Normal 12.0-16.0 [facility] ([place] Comment on above: Performed By: #### F T3, CMP, GFR, ANEU, TSH, PMETAN, TSIG, CBC, ADIFF, FT4 #### [address] [address] MCH (RBC) [Entitic mass] 29.5 pg Normal 27.0-31.2 [facility] ([place] Comment on above: Performed By: #### F T3, CMP, GFR, ANEU, TSH, PMETAN, TSIG, CBC, ADIFF, FT4 #### [address] [address] MCHC 32.9 G/dL Low 33.0-37.0 [facility] ([place] Comment on above: Performed By: #### F T3, CMP, GFR, ANEU, TSH, PMETAN, TSIG, CBC, ADIFF, FT4 #### [address] [address] MCV (RBC) [Entitic vol] 89.6 fL Normal 80.0-94.0 [facility] ([place] Comment on above: Performed By: #### F T3, CMP, GFR, ANEU, TSH, PMETAN, TSIG, CBC, ADIFF, FT4 #### [address] [address] Platelet 276 10 3/mcL Normal 130-400 [facility] ([place] Comment on above: Performed By: #### F T3, CMP, GFR, ANEU, TSH, PMETAN, TSIG, CBC, ADIFF, FT4 #### [address] [address] Platelet mean volume (Bld) [Entitic vol] 9.1 fL Normal 7.4-10.4 [facility] ([place] Comment on above: Performed By: #### F T3, CMP, GFR, ANEU, TSH, PMETAN, TSIG, CBC, ADIFF, FT4 #### [address] [address] RBC 4.35 10 6/mcL Normal 4.20-5.40 [facility] ([place] Comment on above: Performed By: #### F T3, CMP, GFR, ANEU, TSH, PMETAN, TSIG, CBC, ADIFF, FT4 #### [address] [address] WBC 5.9 10 3/mcL Normal 4.6-10.8 [facility] ([place] Comment on above: Performed By: #### F T3, CMP, GFR, ANEU, TSH, PMETAN, TSIG, CBC, ADIFF, FT4 #### [address] [address] CMPon 08-26-2022 Albumin Level 3.9 G/dL Normal 3.5-5.0 [facility] ([place] Comment on above: Performed By: #### Deni G #### [address] [address] Albumin/Globulin [Mass ratio] 1.3 {ratio} Normal 1.1-2.5 [facility] ([place] Comment on above: Performed By: #### Deni G #### [address] [address] ALP [Catalytic activity/Vol] 158 U/L High 40-135 [facility] ([place] Comment on above: Performed By: #### Deni G #### [address] [address] ALT [Catalytic activity/Vol] 67 U/L High 14-59 [facility] ([place] Comment on above: Performed By: #### Deni G #### [address] [address] AST [Catalytic activity/Vol] 46 U/L High 10-40 [facility] ([place] Comment on above: Performed By: #### Deni G #### [address] [address] Bili Total 0.2 mg/dL Normal 0.2-1.0 [facility] ([place] Comment on above: Result Comment: Use of this assay is not recommended for patients undergoing treatment with eltrombopag due to the potential for falsely elevated results. Performed By: #### Deni G #### [place] [id number] BUN/Creatinine Ratio 28 ratio High 7-27 [facility] ([place] Comment on above: Performed By: #### Deni G #### [address] [address] Calcium [Mass/Vol] 8.8 mg/dL Normal 8.4-10.2 [facility] ([place]) Comment on above: Performed By: #### Deni G #### [address] [address] Chloride [Moles/Vol] 105 mmol/L Normal 98-107 [facility] ([place] Comment on above: Performed By: #### Deni G #### [address] [address] CO2 [Moles/Vol] 31 mmol/L High 22-29 [facility] ([place] Comment on above: Performed By: #### M G #### [address] [address] Creatinine [Mass/Vol] 0.82 mg/dL Normal 0.55-1.02 [facility] ([place] Comment on above: Performed By: #### M G #### [address] [address] Electrolyte Balance 6.0 mEq/L Normal 4.0-15.0 [facility] [place] Comment on above: Performed By: #### M G #### [address] [address] Globulin 3.0 G/dL Normal [facility] ([place] Comment on above: Performed By: #### M G #### [address] [address] Glucose [Mass/Vol] 106 mg/dL High 70-105 [facility] ([place] Comment on above: Performed By: #### M G #### [address] [address] Potassium [Moles/Vol] 4.7 mmol/L Normal 3.5-5.1 [facility] ([place] Comment on above: Performed By: #### M G #### [address] [address] Sodium [Moles/Vol] 142 mmol/L Normal 136-145 [facility] ([place] Comment on above: Performed By: #### M G #### [address] [address] Total Protein 6.9 G/dL Normal 6.4-8.2 [facility] ([place] Comment on above: Performed By: #### M G #### [address] [address] Urea nitrogen [Mass/Vol] 23 mg/dL High 7-18 [facility] ([place] Comment on above: Performed By: #### M G #### [facility] [address] [place], [place] [id number] Free T3 [Mass/Vol] 3.19 pg/mL Normal 2.30-4.00 [facility] ([place] Comment on above: Performed By: #### M G #### [place] [address] FT408-26-2022 Free T4 [Mass/Vol] 0.87 ng/dL Normal 0.76-1.46 [facility] ([place] Comment on above: Performed By: #### M G #### [place] [address] LABORATORYOrdered By: SYSTEM SYSTEM on 08-26-2022 Albumin BCP dye [Mass/Vol] 3.9 G/dL Invalid Interpretation Code 3.5 - 5.0 G/dL AO ADM SS Albumin/Globulin [Mass ratio] 1.3 {ratio} Invalid Interpretation Code 1.1 - 2.5 ratio AO ADM SS ALP [Catalytic activity/Vol] 158 U/L Invalid Interpretation Code 40 - 135 U/L AO ADM SS ALT With P-5'-P [Catalytic activity/Vol] 67 U/L Invalid Interpretation Code 14 - 59 U/L AO ADM SS AST With P-5'-P [Catalytic activity/Vol] 46 U/L Invalid Interpretation Code 10 - 40 U/L AO ADM SS Bilirubin [Mass/Vol] 0.2 mg/dL Invalid Interpretation Code 0.2 - 1.0 mg/dL AO ADM SS Calcium [Mass/Vol] 8.8 mg/dL Invalid Interpretation Code 8.4 - 10.2 mg/dL AO ADM SS Chloride [Moles/Vol] 105 mmol/L Invalid Interpretation Code 98 - 107 mmol/L AO ADM SS CO2 [Moles/Vol] 31 mmol/L Invalid Interpretation Code 22 - 29 mmol/L AO ADM SS Creatinine [Mass/Vol] 0.82 mg/dL Invalid Interpretation Code 0.55 - 1.02 mg/dL AO ADM SS Electrolyte Balance 6.0 mEq/L Invalid Interpretation Code 4.0 - 15.0 mEq/L AO ADM SS Free T3 [Mass/Vol] 3.19 pg/mL Invalid Interpretation Code 2.30 - 4.00 pg/mL AO ADM SS Free T4 [Mass/Vol] 0.87 ng/dL Invalid Interpretation Code 0.76 - 1.46 ng/dL AO ADM SS GFR/1.73 sq M.predicted among blacks MDRD (S/P/Bld) [Vol rate/Area] 86 ml/min/1.73sqm Invalid Interpretation Code AO Chemistry S GFR/1.73 sq M.predicted among non-blacks MDRD (S/P/Bld) [Vol rate/Area] 71 ml/min/1.73sqm Invalid Interpretation Code AO Chemistry S Globulin 3.0 G/dL Invalid Interpretation Code AO ADM SS Glucose [Mass/Vol] 106 mg/dL Invalid Interpretation Code 70 - 105 mg/dL AO ADM SS Potassium [Moles/Vol] 4.7 mmol/L Invalid Interpretation Code 3.5 - 5.1 mmol/L AO ADM SS Protein [Mass/Vol] 6.9 G/dL Invalid Interpretation Code 6.4 - 8.2 G/dL AO ADM SS Sodium [Moles/Vol] 142 mmol/L Invalid Interpretation Code 136 - 145 mmol/L AO ADM SS TSH Qn 2.63 m[IU]/L Invalid Interpretation Code 0.36 - 3.74 mcIU/mL AO ADM SS Urea nitrogen [Mass/Vol] 23 mg/dL Invalid Interpretation Code 7 - 18 mg/dL AO ADM SS Urea nitrogen/Creatinine [Mass ratio] 28 ratio Invalid Interpretation Code 7 - 27 ratio AO ADM SS LABORATORYOrdered By: Lupe Otoole on 08-26-2022 Basophil, Absolute 0.1 103/mcL Invalid Interpretation Code 0.0 - 0.2 10^3/mcL AO Workflow SS Basophils/100 WBC (Bld) 1.0 % Invalid Interpretation Code 0.0 - 2.5 % AO Workflow SS Eosinophil, Absolute 0.2 103/mcL Invalid Interpretation Code 0.0 - 0.4 10^3/mcL AO Workflow SS Eosinophils/100 WBC (Bld) 4.0 % Invalid Interpretation Code 0.0 - 7.0 % AO Workflow SS Erythrocyte distribution width (RBC) [Ratio] 14.4 % Invalid Interpretation Code 11.5 - 14.5 % AO Workflow SS Hematocrit (Bld) [Volume fraction] 38.9 % Invalid Interpretation Code 37.0 - 47.0 % AO Workflow SS Hemoglobin (Bld) [Mass/Vol] 12.8 G/dL Invalid Interpretation Code 12.0 - 16.0 G/dL AO Workflow SS Lymphocyte, Absolute 2.2 103/mcL Invalid Interpretation Code 0.8 - 3.9 10^3/mcL AO Workflow SS Lymphocytes/100 WBC (Bld) 37.7 % Invalid Interpretation Code 10.0 - 50.0 % AO Workflow SS MCH (RBC) [Entitic mass] 29.5 pg Invalid Interpretation Code 27.0 - 31.2 pg AO Workflow SS MCHC 32.9 G/dL Invalid Interpretation Code 33.0 - 37.0 G/dL AO Workflow SS MCV (RBC) [Entitic vol] 89.6 fL Invalid Interpretation Code 80.0 - 94.0 fL AO Workflow SS Monocyte, Absolute 0.5 103/mcL Invalid Interpretation Code 0.2 - 1.0 10^3/mcL AO Workflow SS Monocytes/100 WBC (Bld) 8.3 % Invalid Interpretation Code 1.7 - 13.0 % AO Workflow SS Neutrophil, Absolute 2.9 103/mcL Invalid Interpretation Code 2.9 - 6.2 10^3/mcL AO Workflow SS Neutrophils/100 WBC (Bld) 49.0 % Invalid Interpretation Code 37.0 - 80.0 % AO Workflow SS Platelet mean volume (Bld) [Entitic vol] 9.1 fL Invalid Interpretation Code 7.4 - 10.4 fL AO Workflow SS Platelets (Bld) [#/Vol] 276 103/mcL Invalid Interpretation Code 130 - 400 10^3/mcL AO Workflow SS RBC (Bld) [#/Vol] 4.35 106/mcL Invalid Interpretation Code 4.20 - 5.40 10^6/mcL AO Workflow SS WBC (Bld) [#/Vol] 5.9 103/mcL Invalid Interpretation Code 4.6 - 10.8 10^3/mcL AO Workflow SS TSHon 08-26-2022 TSH Qn 2.63 m[IU]/L Normal 0.36-3.74 [facility] ([place]) Comment on above: Performed By: #### M G #### [address] [address] Clinical Summary: HMSPatient IDon [id number] OOP Invalid Interpretation Code [facility] Work Phone: Clinical Summary: HMSPatient IDon 02-14-2019 OOP Invalid Interpretation Code [facility] Work Phone: .GFRon 10-29-2018 GFR Non- 117 ml/min/1.73sqm Normal [facility] ([place]) Comment on above: Result Comment: GFR Population mean for , Non- Americans Ages 20-29 = 116 mL/min/1.73 sq.m. Ages 30-39 = 107 mL/min/1.73 sq.m. Ages 40-49 = 99 mL/min/1.73 sq.m. Ages 50-59 = 93 mL/min/1.73 sq.m. Ages 60-69 = 85 mL/min/1.73 sq.m. Ages 70+ = 75 mL/min/1.73 sq.m. Chronic Kidney Disease: Less than 60 mL/min/1.73 square meters End Stage Renal Disease: Less than 15 mL/min/1.73 square meters Performed By: #### B UN, CRE, GFR #### [address] [address] GFR 142 ml/min/1.73sqm Normal [facility] ([place]) Comment on above: Result Comment: GFR Population mean for , Non- Americans Ages 20-29 = 116 mL/min/1.73 sq.m. Ages 30-39 = 107 mL/min/1.73 sq.m. Ages 40-49 = 99 mL/min/1.73 sq.m. Ages 50-59 = 93 mL/min/1.73 sq.m. Ages 60-69 = 85 mL/min/1.73 sq.m. Ages 70+ = 75 mL/min/1.73 sq.m. Chronic Kidney Disease: Less than 60 mL/min/1.73 square meters End Stage Renal Disease: Less than 15 mL/min/1.73 square meters Performed By: #### B UN, CRE, GFR #### [address] [address] BUNon 10-29-2018 Urea nitrogen [Mass/Vol] 23 mg/dL High 7-18 [facility] ([place]) Comment on above: Performed By: #### B UN, CRE, GFR #### [address] [address] CREon 10-29-2018 Creatinine [Mass/Vol] 0.70 mg/dL Normal 0.70-1.30 [facility] ([place]) Comment on above: Performed By: #### B UN, CRE, GFR #### [address] [address] Otheron 03-27-2007 CONVERTED ELECTRONIC SIGNATURE LAURA GARNICA M.D. (Electronic signature on file) Final Signed Out: 03/27/2007 16:21 [facility] CONVERTED FINAL DIAGNOSIS FIBROCARTILAGE, LIGAMENTUM, STRIATED MUSCLE AND BONE (POSTERIOR LUMBAR DECOMPRESSION). [facility] CONVERTED ORDERING PROVIDER Ordering Provider: NIK DODGE [facility] Vital Signs Date Time Vital Sign Value Performing Clinician Facility 12-02-2024 09:30-0400 Body height 167.[address] Jero Whiting DO Work Phone: [facility] 12-02-2024 09:30-0400 Body mass index (BMI) [Ratio] 28.1 kg/m2 Dr. Jero Whiting DO Work Phone: [facility] 12-02-2024 09:30-0400 Body weight 79.[address] Jero Whiting DO Work Phone: [facility] 10-21-2024 10:14-0400 Body temperature 98.4 [degF] Edilberto Grover MD Work Phone: [facility] 10-21-2024 10:14-0400 Body weight 79.4 kg Edilberto Grover MD Work Phone: [facility] 10-21-2024 10:14-0400 Diastolic blood pressure 88 mm[Hg] Edilberto Grover MD Work Phone: [facility] 10-21-2024 10:14-0400 Heart rate 100 /min Edilberto Grover MD Work Phone: [facility] 10-21-2024 10:14-0400 Respiratory rate 20 /min Edilberto Grover MD Work Phone: [facility] 10-21-2024 10:14-0400 SaO2% (BldA) [Mass fraction] 95 % Edilberto Grover MD Work Phone: [facility] 10-21-2024 10:14-0400 Systolic blood pressure 130 mm[Hg] Edilberto Grover MD Work Phone: [facility] 07-26-2023 10:41-0400 Diastolic Blood Pressure Non-Invasive 82 mm[Hg] DR EDWIN DANG MD [address] 07-26-2023 10:41-0400 Heart rate 92 /min DR EDWIN DANG MD [address] [place] [address] 07-26-2023 10:41-0400 Systolic Blood Pressure Non-Invasive 126 mm[Hg] DR EDWIN DANG MD [address] [place] [address] 07-26-2023 10:15-0400 Diastolic Blood Pressure Non-Invasive 80 mm[Hg] DR EDWIN DANG MD [address] [place] [address] 07-26-2023 10:15-0400 Heart rate 94 /min DR EDWIN DANG MD [address] [place] [address] 07-26-2023 10:15-0400 Systolic Blood Pressure Non-Invasive 133 mm[Hg] DR EDWIN DANG MD [address] [place] [address] 07-26-2023 10:01-0400 Diastolic Blood Pressure Non-Invasive 83 mm[Hg] DR EDWIN DANG MD [address] [place] [address] 07-26-2023 10:01-0400 Heart rate 96 /min DR EDWIN DANG MD [address] [place] [address] 07-26-2023 10:01-0400 Systolic Blood Pressure Non-Invasive 118 mm[Hg] DR EDWIN DANG MD [address] [place] [address] 07-26-2023 09:40-0400 Respiratory rate 18 /min DR EDWIN DANG MD [facility] 07-26-2023 07:15-0400 Body height 168.[address] EDWIN DANG MD [facility] 07-26-2023 07:15-0400 Body temperature 97.7 [degF] DR EDWIN DANG MD [address] [place] [address] 07-26-2023 07:15-0400 Body weight 28.29 kg/m2 DR EDWIN DANG MD [address] 07-26-2023 07:15-0400 Body weight 80.[address] EDWIN DANG MD [address] 07-26-2023 07:15-0400 Respiratory rate 18 /min DR EDWIN DANG MD [facility] 06-21-2023 17:40-0500 Diastolic Blood Pressure Non-Invasive 94 mm[Hg] GREGORY LOWERY MD [facility] 06-21-2023 17:40-0500 Heart rate 90 /min GREGORY LOWERY MD [facility] 06-21-2023 17:40-0500 Reason For Taking VItal Signs GREGORY LOWERY MD [facility] 06-21-2023 17:40-0500 Respiratory rate 19 /min GREGORY LOWERY MD [facility] 06-21-2023 17:40-0500 Systolic Blood Pressure Non-Invasive 161 mm[Hg] GREGORY LOWERY MD [facility] 06-21-2023 15:48-0500 Diastolic Blood Pressure Non-Invasive 101 mm[Hg] GREGORY LOWERY MD [facility] 06-21-2023 15:48-0500 Heart rate 90 /min GREGORY LOWERY MD [facility] 06-21-2023 15:48-0500 Respiratory rate 16 /min GREGORY LOWERY MD [facility] 06-21-2023 15:48-0500 Systolic Blood Pressure Non-Invasive 169 mm[Hg] GREGORY LOWERY MD [facility] 06-21-2023 13:18-0500 Diastolic Blood Pressure Non-Invasive 102 mm[Hg] GREGORY LOWERY MD [facility] 06-21-2023 13:18-0500 Heart rate 104 /min GREGORY LOWERY MD [facility] 06-21-2023 13:18-0500 Respiratory rate 17 /min [facility] LOWERY [facility] [facility]23 13:18-0500 Systolic Blood Pressure Non-Invasive 163 mm[Hg] GREGORY LOWERY MD [facility] 06-21-2023 12:14-0500 Body temperature 95.18 [degF] GREGORY LOWERY MD [facility] 06-21-2023 12:14-0500 Body weight 81.5 kg GREGORY LOWERY MD [facility] 09-16-2022 14:30-0400 Diastolic blood pressure 94 mm[Hg] [facility] 09-16-2022 14:30-0400 Systolic blood pressure 146 mm[Hg] [facility] 09-16-2022 14:29-0400 Heart rate 72 /min [facility] 09-16-2022 14:29-0400 Respiratory rate 14 /min [facility] 09-16-2022 14:29-0400 SaO2% (BldA) [Mass fraction] 97 % [facility] 09-16-2022 13:23-0400 Body height 167.64 cm [facility] 09-16-2022 13:23-0400 Body mass index (BMI) [Ratio] 18.1 kg/m2 [facility] 09-16-2022 13:23-0400 Body temperature 98.1 [degF] [facility] 09-16-2022 13:23-0400 Body weight 51 kg [facility] NEGATED: Highlighted [id number] 09:00-0500 Body height 167.64 cm Es Mino AT [facility] [place] [facility] Work Phone: NEGATED: Highlighted [id number] 09:00-0500 Body height 168 cm Es Mino AT [facility] Work Phone: NEGATED: Highlighted [id number] 09:00-0500 Body mass index (BMI) [Ratio] 27.21 kg/m2 Es Mino AT [facility] Work Phone: NEGATED: Highlighted [id number] 09:00-0500 Body weight 76.2 kg Es Mino AT [facility] Work Phone: NEGATED: Highlighted [id number] 09:00-0500 Body weight 76 kg Es Mino AT [facility] [place] [facility] Work Phone: NEGATED: Highlighted [id number] 09:00-0500 Diastolic blood pressure 100 mm[Hg] Es Mino AT [facility] Work Phone: NEGATED: Highlighted [id number] 09:00-0500 Diastolic blood pressure 82 mm[Hg] Es Mino AT [facility] Work Phone: NEGATED: Highlighted [id number] 09:00-0500 Heart rate 87 /min Es Mino AT [facility] Work Phone: NEGATED: Highlighted [id number] 09:00-0500 Systolic blood pressure 149 mm[Hg] Es Mino AT [facility] Work Phone: NEGATED: Highlighted [id number] 09:00-0500 Systolic blood pressure 117 mm[Hg] Es Herzog AT [facility] Work Phone: NEGATED: Highlighted [id number] 10:42-0400 Body height 167.64 cm [facility] Work Phone: NEGATED: Highlighted [id number] 10:42-0400 Body height 168 cm [facility] Work Phone: NEGATED: Highlighted [id number] 10:42-0400 Body mass index (BMI) [Ratio] 28.19 kg/m2 [facility] Work Phone: NEGATED: Highlighted [id number] 10:42-0400 Body weight 78.93 kg [facility] Work Phone: NEGATED: Highlighted [id number] 10:42-0400 Body weight 79 kg [facility] Work Phone: NEGATED: Highlighted [id number] 10:42-0400 Diastolic blood pressure 75 mm[Hg] [facility] Work Phone: NEGATED: Highlighted [id number] 10:42-0400 Heart rate 89 /min [facility] Work Phone: NEGATED: Highlighted [id number] 10:42-0400 Systolic blood pressure 108 mm[Hg] [facility] Work Phone: Encounters Encounter Date Encounter Type Care Provider Facility Start: 12-02-2024 End: 12-02-[address] Boom Son MD [facility] Start: 12-02-2024 End: 12-02-[address] Jero Whiting DO Work Phone: [facility] Start: 11-18-2024 End: 11-18-2024 ambulatory KAY BARCENASETLER [employer] Facility:[facility] Start: 11-18-2024 End: 11-18-2024 Patient encounter procedure KAY SYED [employer] [facility] Start: 10-21-2024 End: 10-21-2024 Patient encounter procedure Edilberto Grover MD Work Phone: [facility] Comment on above: Acute cough (Primary Dx); Wheezing; Smoking history Start: 10-21-2024 End: 10-21-2024 ambulatory JERO WHITING Facility:[facility] Start: 05-24-2024 End: 05-24-2024 ambulatory KELLY DURON MD Facility[facility] Start: 05-24-2024 End: 05-24-2024 Patient encounter procedure KELLY DURON MD [facility] Start: 04-19-2024 End: 04-19-2024 ambulatory JERO WHITING DO Facility:[facility] Start: 04-19-2024 End: 04-19-2024 Patient encounter procedure JERO WHITING DO [facility] Start: 07-26-2023 End: 07-26-[address] EDWIN DANG MD Facility:[facility] Start: 07-26-2023 End: 07-26-[address] EDWIN DANG MD [facility] Start: 07-25-2023 End: 07-26-2023 ambulatory WESLEY MCCARTY [employer] Facility:[facility] Start: 07-11-2023 ambulatory JERO WHITING DO Facil ity:A Start: 06-21-2023 End: 06-21-2023 Emergency department patient visit JERO WHITING DO Facility:[facility] Start: 06-21-2023 End: 06-21-2023 Emergency department patient visit GREGORY LOWERY MD [facility] Start: 11-26-2022 End: 11-28-2022 ambulatory WESLEY MCCARTY [employer] Facility:[facility] Start: 11-25-2022 End: 11-25-2022 Patient encounter procedure WESLEY MCCARTY [employer] [facility] Start: 11-05-2022 End: 11-10-2022 ambulatory JERO WHITING DO Facility:[facility] Start: 11-05-2022 End: 11-09-2022 Outreach Lab WESLEY MCCARTY [employer] [facility] Start: 11-03-2022 End: 11-04-2022 ambulatory WESLEY MCCARTY [employer] Facility:[facility] Start: 11-03-2022 End: 11-03-2022 Patient encounter procedure WESLEY MCCARTY [employer] [facility] Start: 09-19-2022 ambulatory JERO MINDA DO Facil ity:B Start: 09-16-2022 ambulatory JERO MINDA DO Facil ity:B Start: 09-16-2022 End: 09-16-2022 Emergency department patient visit [facility] Start: 08-26-2022 End: 08-27-2022 ambulatory JERO MINDA DO Facility:[facility] Start: 08-26-2022 End: 08-26-2022 Patient encounter procedure JERO MINDA DO [facility] Start: 03-23-2007 End: 03-23-2007 Patient encounter procedure Nik Dodge Work Phone: [facility] Start: 03-23-2007 Results Only Nik Dodge Work Phone: [facility] Procedures Date Procedure Procedure Detail Performing Clinician Start: 09-16-2022 Computed tomography of abdomen and pelvis with intravenous contrast Start: 04-18-2019 End: 04-18-2019 Calc BMI abv up morenita f/u Lisa Opsitnick [employer] Work Phone: Start: 04-18-2019 End: 04-18-2019 Docrev cur meds by [facility] Lisa Opsitnick [employer] Work Phone: Start: 04-18-2019 End: 04-18-2019 Pain neg no plan Lisa Opsitnick [employer] Work Phone: Start: 04-18-2019 End: 04-18-2019 Patient encounter procedure Lisa Opsitnick [employer] Work Phone: Start: 04-18-2019 End: 04-18-2019 Pt scrnd tobacco use rcvd tobacco cessation talk Lisa Opsitnick [employer] Work Phone: Start: 02-14-2019 End: 02-14-2019 BP scrn perf rec interval Lisa Opsitnick [employer] Work Phone: Start: 02-14-2019 End: 02-14-2019 Calc BMI abv up morenita f/u Lisa Opsitnick [employer] Work Phone: Start: 02-14-2019 End: 02-14-[address] [facility] nathalie Lisa Opsitnick [employer] Work Phone: Start: 02-14-2019 End: 02-14-2019 Pain neg no plan Lisa Opsitnick [employer] Work Phone: Start: 02-14-2019 End: 02-14-2019 Patient encounter procedure Lisa Opsitnick [employer] Work Phone: Start: 02-14-2019 End: 02-14-2019 Pt scrnd tobacco use rcvd tobacco cessation talk Lisa Opsitnick [employer]QUE [employer] Work Phone: Start: 02-05-2018 Excision of colon LIZ WHITING DO Start: 05-17-2012 Lipid 1996 panel - S brenna or Plasma Edilberto Grover MD Work Phone: Start: 05-17-2012 Mammography Nik francis Start: 11-23-2011 Colonoscopy Edilberto cruz MD Work Phone: Start: 03-23-2007 CONVERTED SURGICAL PATHOLOGY Nik Dodge Work Phone: Start: 04-17-1989 Hysterectomy JERO LAWS DO Comment on above: PARTIAL Appendectomy JERO WHITING DO Cardiac catheterization ROBE RT MINDA DO Chiari malformation (disorder) JERO WHITING DO Excision of colon DR EDWIN DANG MD Gallbladder structur e (body structure) JERO WHITING DO Ganglion cyst (morphologic abnormality) JERO WHITING DO Comment on above: both wrists H/O: hysterectomy S/P partial hysterectomy H/O: surgery History of surgi tye removal of ganglion cyst Comment on above: Left wrist- 06/23/95 H/O: tubal ligation Hx of tubal ligation Comment on above: 06/12/86 History of cholecystectomy S/P cholecystectomy Comment on above: 09/30/05 NEGATED: Highlighted rowStart: 04-18-2019 End: 04-18-2019 Documentation of current medications Es Herzog AT NEGATED: Highlighted rowStart: 04-18-2019 End: 04-18-2019 Smoking cessation education Es Herzog AT NEGATED: Highlighted rowStart: 02-14-2019 End: 02-14-2019 Documentation of current medications Camille SANDOVAL NEGATED: Highlighted rowStart: 02-14-2019 End: 02-14-2019 Smoking cessation education Camille SANDOVAL Plan of Treatment Date Care Activity Detail Author Start: 2038 RSV Vaccine (1 - 1-dose 75+ series) RSV Vaccine (1 - 1-dose 75+ series) [facility] Start: 05-06-2026 Diabetes Screening Diabetes Screening [facility] Start: 12-16-2024 Influenza vaccination [facility] Start: 12-02-2024 X-ray of lumbosacral spine L/S Spine Min 4 Views [facility] Start: 12-02-2024 XR Spine Lumbar and Sacrum GE 4 Views [facility] Start: 04-17-2024 Medicare [facility] Annual Wellness Visit Medicare Advantage Annual Wellness Visit [facility] Start: 12-17-2023 Covid-19 Vaccine ( season) Covid-19 Vaccine ( season) [facility] Start: 12-17-2019 Influenza vaccination INFLUENZA (#1) [facility] Start: 07-23-2019 End: 07-23-2019 Patient encounter procedure Appointment [facility] Work Phone: Start: 04-18-2019 End: 04-18-2019 Patient encounter procedure Appointment [facility] Work Phone: Start: 04-18-2019 End: 04-18-2019 Radex spine lumbosacral 2/3 views XR LUMBAR 2-3 VWS AP/LAT [facility] Work Phone: Start: 02-14-2019 End: 02-14-2019 Patient encounter procedure Appointment [facility] Work Phone: Start: 02-14-2019 End: 02-14-2019 Radex spine lumbosacral 2/3 views XR LUMBAR 2-3 VWS AP/LAT [facility] Work Phone: Start: 05-17-2017 Lipid panel Lipid Screening [facility] Start: 05-17-2017 LIPID SCREEN LIPID SCREEN [facility] Start: 01-31-2014 DIABETES SCREEN DIABETES SCREEN [facility] Start: 05-17-2013 Mammography MAMMOGRAM [facility] Start: 05-17-2013 Screening for malignant neoplasm of breast Mammogram Screening [facility] Start: 2013 Pneumococcal Vaccine: 50+ (1 of 1 - PCV) Pneumococcal Vaccine: 50+ (1 of 1 - PCV) [facility] Start: 2013 SHINGRIX VACCINE (1 of 2) SHINGRIX VACCINE (1 of 2) [facility] Start: 2013 Tuberculosis screening COLORECTAL CANCER SCREENING,SEE MODIFIER [facility] Start: 11-22-2012 Screening for malignant neoplasm of colon [facility] Start: 06-07-2010 PAP TESTING PAP TESTING [facility] Start: 06-07-2008 Screening for malignant neoplasm of cervix Cervical Cancer Screening [facility] Start: 2008 Screening for malignant neoplasm of colon [facility] Start: 1993 HPV TESTING HPV TESTING [facility] Start: 1982 Urine microalbumin profile [facility] Start: 1981 Anxiety Screening Anxiety Screening [facility] Start: 1981 HEPATITIS C SCREENING HEPATITIS C SCREENING [facility] Start: 1981 Hepatitis C screening Hepatitis C Screening [facility] Start: 1981 HIV SCREENING HIV SCREENING [facility] Start: 1981 HIV screening HIV Screening [facility] Hematocrit [Volume Fraction] of Blood [facility] Hemoglobin [Mass/vol ume] in Blood [facility] Leukocytes [#/volume ] in Blood [facility] Mean corpuscular hemoglobin concentration determination [facility] Mean corpuscular hemoglobin determination [facility] MR Lumbar spine WO a nd W contrast IV [facility] Neutrophil count [facility] Neutrophil percent differential count [facility] Patient Education [facility] Work Phone: Patient referral [facility] Work Phone: Platelets [#/volume] in Blood [facility] Red blood cell count [facility] Red cell distributio n width determination [facility] Immunizations Immunization Date Immunization Notes Care Provider Meche vázquez 02-06-2018 influenza, injectabl e, quadrivalent, preservative free Dr. Jero Whiting DO Work Phone: [facility] 02-06-2018 influenza, seasonal, injectable [facility] 05-17-2012 influenza virus vaccine, unspecified formulation Edilberto Grover MD Work Phone: [facility] Payers Date Payer Category Payer Self-pay [id number] 2024 Private Health Insurance 1ff [id number] 2024 Medicare (Managed Care) [facility] [place] [address] [id number] 2023 Medicare [id number] 2022 Unknown [id number] 2010 Unknown [id number] 1963 Unknown [id number] [id number]. 2. 1963 Unknown [id number] 2.840.1.190698.3.579. 2 1963 Unknown [id number] 2.840.1.128619.3.579. 2 1963 Unknown [id number] 2.16840.1.480295.3.579. 2. 1963 Unknown [id number] 2.16840.1.510376.3.579. 2. 1963 Unknown [id number] 2.16840.1.575266.3.579. 2. 1963 Unknown [id number] [id number]. 2.627 1963 Unknown [id number] [id number]. 2.627 1963 Unknown [id number] 2.16.840.1.360218.3.579. 2.627 1963 Unknown [id number] 2.16.840.1.989003.3.579. 2.627 1963 Unknown [id number] [id number]. 2.627 1963 Unknown [id number] 2.16.840.1.892664.3.579. 2.627 1963 Unknown [id number] [id number]. 2.627 1963 Unknown [id number] [id number]. 2.627 Unknown [id number] [id number]. 2.462 Unknown [id number] [id number]. 2.462 Social History Date Type Detail Facility Start: 06-07-2005 End: 02-14-2013 Tobacco smoking status NHIS Current every day smoker [facility] Work Phone: History of tobacco use Cigarette Smoker C [facility] Start: 06-07-2005 End: 10-15-2017 Cigarettes smoked current (pack per day) - Reported [facility] Start: 06-07-2005 Alcohol intake Current non-dr fur pointer of alcohol (finding) [facility] Start: 1965 Sex Assigned At Not on file [facility] Start: 02-14-2019 End: 04-18-2019 Assertion Unknown if ever smoked [facility] [place] [facility] Work Phone: Start: 09-15-2021 End: 09-16-2022 Tobacco smoking status Ex-smoker (finding) Davion Khan [facility] Erin Comment on above: been 3 wks current'y smoking le ss than a pack per day, but plans to quit soon. Start: 1965 Sex Assigned At Female A [facility] Start: 09-16-2022 None [place] [facility] Sexual Orientation [facility] Start: 10-10-2018 Sex Female (finding) [facility] Start: 02-14-2013 Tobacco use and exposure Smokeless tobacco non-user [facility] Start: 03-08-2017 Alcoholic beverage intake Current drinker of alcohol (finding) [facility] Start: 10-15-2017 Tobacco use panel [facility] Start: 02-14-2013 Tobacco Comment is quitting do wn to 2 cigs per day [facility] Start: 02-14-2013 Alcohol Comment 1 drink per month [facility] Start: 09-12-2024 Tobacco smoking status Heavy t obacco smoker (finding) [facility] Comment on above: current'y smoking le ss than a pack per day, but plans to quit soon. been 3 wks NEGATED: Highlighted rowStart: 02-14-2019 End: 02-14-2019 Employment detail Employment detail [facility] Work Phone: NEGATED: Highlighted rowStart: 02-14-2019 End: 04-18-2019 Tobacco use and exposure Tobacco use and exposure [facility] Work Phone: Medical Equipment Procedure Code Equipment Code Equipment Origin al Text Equipment Identifier Dates BONITA GHOSH LG FDA Start: 02-05-2018 BONITA GHOSH FDA Start: 02-05-2018 RELOAD, SR75 SELECTABLE FDA Start: 02-05-2018 RELOAD, SR75 SELECTABLE FDA Start: 02-05-2018 RELOAD, SR75 SELECTABLE FDA Start: 02-05-2018 SHWETA BUCHANAN FDA Start: 02-05-2018 BONITA GHOSH LG FDA Start: 02-05-2018 BONITA GHOSH FDA Start: 02-05-2018 RELOAD, SR75 SELECTABLE FDA Start: 02-05-2018 RELOAD, SR75 SELECTABLE FDA Start: 02-05-2018 RELOAD, SR75 SELECTABLE FDA Start: 02-05-2018 [id number] FDA Start: 02-05-2018 AUGIEJESSICAARACELIS JEWELL CYRIL FDA Start: 02-05-2018 AGUIEJESSICAARACELIS Hernandez CYRIL FDA Start: 02-05-2018 RELOAD, SR75 SELECTABLE FDA Start: 02-05-2018 RELOAD, SR75 SELECTABLE FDA Start: 02-05-2018 RELOAD, SR75 SELECTABLE FDA Start: 02-05-2018 OLESYA [id number] FDA Start: 02-05-2018 Functional Status Date Assessment Result Facility 07-26-2023 Functional Status Awake, Up ad sonido [facility] 07-26-2023 Functional Status [facility] 07-26-2023 Functional Status Room check per formed, Body Technician at bedside [facility] 06-21-2023 Functional Status Awake [facility] 06-21-2023 Functional Status Standard Safet y ID band on, Call device within reach, Bed in low position, Wheels locked, Upper/Half-Length side-rails up, Phone within reach, Bedside Cart Locked [facility] Mental Status Date Assessment Result Facility 07-26-2023 Mental Status Oriented x 4 [facility] 07-26-2023 Mental Status [facility] 06-21-2023 Mental Status Orientation Oriented x 4 [facility] 06-21-2023 Mental Status [facility] Clinical Notes 09-16-2022 to 11-18-2024 Note Date & Type Note Facility 11-18-2024 Note Exam Date Time Procedure Performing Provider Status 11/18/24 2:58 PM XR Hip 2-3 Views Right BAHMAN HANKINS DO; Auth (Verified) [id number] ORIGINAL EXAMINATION: 2 XRAY VIEWS OF THE RIGHT HIP 11/18/2024 2:58 pm COMPARISON: None. HISTORY: ORDERING SYSTEM PROVIDED HISTORY: Reason for Exam: Right hip pain x 2 weeks FINDINGS: Mild joint space narrowing in the inferior aspect of the right hip joint observed. There is no acute fracture or destructive bone lesion. Patient status post prior bowel resection in the right lower quadrant. IMPRESSION: 1. Mild osteoarthritis right hip. 2. No acute fracture. Interpreted by: Bahman Hankins DO Preliminary Report By: Bahman Hankins DO Electronically signed By Bahman Hankins DO Dictated Date: 11/18/2024 5:01:45 PM Prelim Date: 11/18/2024 5:02:34 PM Sign Date: 11/18/2024 5:02:34 PM Ordering Provider: KAY SYED [facility] [id number] NoteHNO ID: [id number] Author: EDILBERTO GROVER MD Service: ? Author Type: Physician Type: Progress Notes Filed: 10/21/2024 10:30 Note Text: [facility] Subjective Delmis Patel is a 59 year old female. Patient presents with: Cough: Chest congestion, sore throat x 2 weeks Patient presents with 2 weeks of cough and drainage. Symptoms include cough, wheezing, rhinorrhea, postnasal drainage, headache, elevated temperature/feverishness. She denies sinus pressure, shortness of breath, chest pain, nausea, vomiting, diarrhea. She has used Mucinex for symptoms. She is a smoker. She has used inhalers in the past but none currently. Denies official COPD diagnosis but has used antibiotic and steroid when sick like this (flares up twice a year usually). Cough Review of Systems Respiratory: Positive for cough. Objective BP 130/88 Pulse 100 Temp 36.9 ?C (98.4 ?F) Resp 20 Wt 79.4 kg (175 lb 0.7 oz) SpO2 95% Physical Exam Constitutional: General: She is not in acute distress. HENT: Right Ear: Tympanic membrane and ear canal normal. Left Ear: Tympanic membrane and ear canal normal. Nose: Congestion present. Right Sinus: No maxillary sinus tenderness or frontal sinus tenderness. Left Sinus: No maxillary sinus tenderness or frontal sinus tenderness. Mouth/Throat: Mouth: Mucous membranes are moist. Pharynx: No oropharyngeal exudate or posterior oropharyngeal erythema. Eyes: Extraocular Movements: Extraocular movements intact. Conjunctiva/sclera: Conjunctivae normal. Pupils: Pupils are equal, round, and reactive to light. Cardiovascular: Rate and Rhythm: Normal rate and regular rhythm. Heart sounds: No murmur heard. Pulmonary: Effort: No respiratory distress. Breath sounds: No wheezing, rhonchi or rales. Comments: Raspy/wheezy cough Musculoskeletal: Cervical back: Neck supple. Lymphadenopathy: Cervical: No cervical adenopathy. Neurological: Mental Status: She is alert. {ASSESSMENT/PLAN: 1. Acute cough - ICD9: 786.2, ICD10: R05.1 (primary diagnosis) 2. Wheezing - ICD9: 786.07, ICD10: R06.2 3. Smoking history - ICD9: V15.82, ICD10: Z87.891 Treat for smokers lung exacerbation with steroid and antibiotic. - PREDNISONE 20 MG TABLET - DOXYCYCLINE MONOHYDRATE 100 MG CAPSULE Smoking sensation encouraged. Follow-up with worsening or failure to improve. Edilberto Grover MD Differential Diagnoses - COPD exacerbation is more likely for the following reason(s): suggested by HANDP - Initial URI is more likely for the following reason(s): Exposure to sick - Pneumonia is less likely for the following reason(s): [facility] History of Present illness Narrative* Edilberto Grover MD - 10/21/2024 10:24 AM EDT [facility] Subjective Delmis Patel is a 59 year old female. Patient presents with: Cough: Chest congestion, sore throat x 2 weeks Patient presents with 2 weeks of cough and drainage. Symptoms include cough, wheezing, rhinorrhea, postnasal drainage, headache, elevated temperature/feverishness. She denies sinus pressure, shortness of breath, chest pain, nausea, vomiting, diarrhea. She has used Mucinex for symptoms. She is a smoker. She has used inhalers in the past but none currently. Denies official COPD diagnosis but has used antibiotic and steroid when sick like this (flares up twice a year usually). Cough Review of Systems Respiratory: Positive for cough. Objective BP 130/88 Pulse 100 Temp 36.9 C (98.4 F) Resp 20 Wt 79.4 kg (175 lb 0.7 oz) SpO2 95% Physical Exam Constitutional: General: She is not in acute distress. HENT: Right Ear: Tympanic membrane and ear canal normal. Left Ear: Tympanic membrane and ear canal normal. Nose: Congestion present. Right Sinus: No maxillary sinus tenderness or frontal sinus tenderness. Left Sinus: No maxillary sinus tenderness or frontal sinus tenderness. Mouth/Throat: Mouth: Mucous membranes are moist. Pharynx: No oropharyngeal exudate or posterior oropharyngeal erythema. Eyes: Extraocular Movements: Extraocular movements intact. Conjunctiva/sclera: Conjunctivae normal. Pupils: Pupils are equal, round, and reactive to light. Cardiovascular: Rate and Rhythm: Normal rate and regular rhythm. Heart sounds: No murmur heard. Pulmonary: Effort: No respiratory distress. Breath sounds: No wheezing, rhonchi or rales. Comments: Raspy/wheezy cough Musculoskeletal: Cervical back: Neck supple. Lymphadenopathy: Cervical: No cervical adenopathy. Neurological: Mental Status: She is alert. {ASSESSMENT/PLAN: 1. Acute cough - ICD9: 786.2, ICD10: R05.1 (primary diagnosis) 2. Wheezing - ICD9: 786.07, ICD10: R06.2 3. Smoking history - ICD9: V15.82, ICD10: Z87.891 Treat for smokers lung exacerbation with steroid and antibiotic. - PREDNISONE 20 MG TABLET - DOXYCYCLINE MONOHYDRATE 100 MG CAPSULE Smoking sensation encouraged. Follow-up with worsening or failure to improve. Edilberto Grover MD Differential Diagnoses - COPD exacerbation is more likely for the following reason(s): suggested by H&P - Initial URI is more likely for the following reason(s): Exposure to sick - Pneumonia is less likely for the following reason(s): Benign lung exam [facility]* Exam Date Time Procedure Performing Provider Status 05/24/24 12:27 PM VL Duplex Scan Aorta /Iliacs Complete KELLY DURON MD; Auth (Verified) [facility]02-07-2025 Note* Exam Date Time Procedure Performing Provider Status 05/24/24 12:27 PM VL Venous Insufficie ncy 2 legs (Oupt) KELLY DURON MD; Auth (Verified) [facility]02-07-2025 Note* Exam Date Time Procedure Performing Provider Status 05/24/24 12:27 PM VL - ABIs (ankles only) - CV Thelma DURON MD; Auth (Verified) [facility]04-10-2024 Discharge summary Date of Service 07/26/2023 Discharge Diagnosis 1. Dyspnea of unclear etiology Hospital Course This is a 58-year-old female who came failure to cardiac catheterization given ongoing dyspnea on exertion. Cardiac catheterization did not show any obvious coronary disease and filling pressures were within normal limits. She was advised to follow-up with primary air traffic control supervisor for further evaluation of dyspnea. Allergies Nickel (rash) Consults No qualifying data available. Objective Vitals and Measurements T: 36.5 C (Oral) HR: 92 RR: 18 BP: 126/82 SpO2: 98% HT: 168.9 cm WT: 80.7 kg BMI: 28.29 Weight Dosing Weight: 80.7 kg (07/26/23) Code Status No qualifying data available. Discharge Date 07/26/2023 Medications Unchanged amitriptyline (amitriptyline 10 mg oral tablet)2 tab(s) by mouth daily at bedtime. cyclobenzaprine (cyclobenzaprine 10 mg oral tablet)1 tab(s) by mouth three (3) times a day as needed as needed for spasm. Refills: 1. DULoxetine (DULoxetine 60 mg oral delayed release capsule)1 cap by mouth two (2) times a day. Refills: 3. hydrOXYzine (hydrOXYzine hydrochloride 25 mg oral tablet)1 tab(s) by mouth two (2) times a day as needed as needed for anxiety. take 1 tablet twice a day if needed anxiety. linaclotide (linaclotide 290 mcg oral capsule)1 cap by mouth once a day. 30 minutes before breakfast; on an empty stomach; do not crush or chew. Refills: 0. meloxicam (meloxicam 15 mg oral tablet)1 tab(s) by mouth once a day as needed arthritis pain. Refills: 3. omeprazole (omeprazole 20 mg oral delayed release capsule)1 cap by mouth with breakfast & supper. before. omeprazole (omeprazole 20 mg oral delayed release capsule)TAKE 1 CAPSULE TWICE A DAY BEFORE BREAKFAST AND SUPPER. Refills: 3. prazosin (prazosin 1 mg oral capsule)1 cap by mouth daily at bedtime. verapamil (verapamil 120 mg/12 hours oral tablet, extended release)1 tab(s) by mouth two (2) times a day. Refills: 3. Follow Up Follow Up with EDWIN TRINH MD When 08/31/2023 03:15 PM EDT Why: THIS APPOINTMENT WILL BE WITH JEN MCCARTY CNP Where: [address] [facility] [place] [address]- [phone] Follow Up Appointments No qualifying data available. Follow Up Labs/Studies Discharge Labs No Follow-up Labs Discharge Studies No Follow-up Studies Discharge Diet No qualifying data available. Discharge Activity No qualifying data available. Readmission Risk/Palliative Score No qualifying data available. Digitally Signed by EDWIN TRINH MD on 07/26/2023 02:[address] [id number] Discharge instructions Patient Education 07/26/2023 11:49:32 Moderate Conscious Sedation, Adult, Care After Moderate Conscious Sedation, Adult, Care After These instructions provide you with information about caring for yourself after your procedure. Your health care provider may also give you more specific instructions. Your treatment has been plannedaccording to current medical practices, but problems sometimes occur. Call your health care provider if you have any problems or questions after your procedure. What can I expect after the procedure? After your procedure, it is common: To feel sleepy for several hours. To feel clumsy and have poor balance for several hours. To have poor judgment for several hours. To vomit if you eat too soon. Follow these instructions at home: For at least 24 hours after the procedure: Do not: ?Participate in activities where you could fall or become injured. ?Drive. ?Use heavy machinery. ?Drink alcohol. ?Take sleeping pills or medicines that cause drowsiness. ?Make important decisions or sign legal documents. ?Take care of children on your own. Rest. Eating and drinking Follow the diet recommended by your health care provider. If you vomit: ?Drink water, juice, or soup when you can drink without vomiting. ?Make sure you have little or no nausea before eating solid foods. General instructions Have a responsible adult stay with you until you are awake and alert. Take myag-ewj-msxqckd and prescription medicines only as told by your health care provider. If you smoke, do not smoke without supervision. Keep all follow-up visits as told by your health care provider. This is important. Contact a health care provider if: You keep feeling nauseous or you keep vomiting. You feel light-headed. You develop a rash. You have a fever. Get help right away if: You have trouble breathing. This information is not intended to replace advice given to you by your health care provider. Make sure you discuss any questions you have with your health care provider. Document Released: 01/22/2014 Document Revised: 03/16/2018 Document Reviewed: 07/23/2016 [employer] Patient Education 2020 [employer]. 07/26/2023 11:49:22 3- Heart Cath/PCI radial (01/2018) (CUSTOM) HEART CATHETERIZATION/PCI (radial) Discharge Instructions DIET Drink plenty of fluids for the next 48 hours to help your kidneys flush the heart cath dye out of your system ACTIVITY For the next 48 hours: Do not deep bend the wrist Do not lift, push, or pull anything over 5 pounds Do not use the hand/arm to support your weight when rising from a chair or bed Do not drive For the next 7 days: Do not submerse your procedure site in water Do not swim, wash dishes, or take tub baths You may write, eat, type, and shower WOUND CARE Keep a Band-Aid on your procedure site for the next 3-4 days Change the Band-Aid daily or if it gets wet/soiled AFTER YOU GO HOME, CALL YOUR DOCTOR FOR: Any increase in bruising or tenderness from the procedure site Any redness, pus, or other signs of infection at the site A temperature above 100.5 Severe pain at the site DIAL 911 AND RETURN TO THE HOSPITAL FOR: Any bleeding from the procedure site. The site may be bruised or tender, but it should not be bleeding at any time. If your site begins to bleed, hold firm pressure on it and dial 911 to return to the hospital Any increase in swelling at the procedure site. An increase in swelling could mean the area is bleeding under the skin. Hold firm pressure to the site and dial 911 to return to the hospital Document Released: 04/03/2006 Document Revised: 03/20/2013 Document Reviewed: 04/04/2014 ExitCare Patient Information 2014 [employer]. This information is not intended to replace advicegiven to you by your health care provider. Make sure you discuss any questions you have with your health care provider. Follow Up Care 07/17/2023 10:18:09 With:EDWIN TRINH MD Address: [address] [place] [address]- [phone] When:08/31/2023 15:15:00 Comments:THIS APPOINTMENT WILL BE WITH JEN MCCARTY CNP [facility] 04-10-2024 Summary of episode note Discharge Instructions Thank you for allowing [facility] to assist you with your healthcare needs. The following is importantdischarge information regarding your hospital visit. Your Care Team JERO WHITING DO What to do next Scheduled Follow-Up Appointments Appointment Type When With Where Contact Information OV 08/02/2023 02:00 PM EDT JERO WHITING DO [facility] CV OV 08/31/2023 03:15 PM EDT [facility] Follow Up Appointments Follow Up with EDWIN TRINH MD When 08/31/2023 03:15 PM EDT Why: THIS APPOINTMENT WILL BE WITH JEN MCCARTY CNP Where: [address] [place] [phone] Allergies Nickel (rash) Medications Please ask your primary doctor or pharmacist before taking any other medication not listed, including over the counter drugs, herbal medications, vitamins and or supplements as they may interact withur home medications. What How Much When Instructions Last Dose Unchanged amitriptyline (amitriptyline 10 mg oral tablet) 2 tab(s) by mouth Daily at bedtime Unchanged cyclobenzaprine (cyclobenzaprine 10 mg oral tablet) 1 tab(s) by mouth Three (3) times a day as needed for as needed for spasm Unchanged DULoxetine (DULoxetine 60 mg oral delayed release capsule) 1 cap by mouth Two (2) times a day Unchanged hydrOXYzine (hydrOXYzine hydrochloride 25 mg oral tablet) 1 tab(s) by mouth Two (2) times a day as needed for as needed for anxiety take 1 tablet twice a day if needed anxiety Unchanged linaclotide (linaclotide 290 mcg oral capsule) 1 cap by mouth Once a day 30 minutes before breakfast; on an empty stomach; do not crush or chew Unchanged meloxicam (meloxicam 15 mg oral tablet) 1 tab(s) by mouth Once a day as needed for arthritis pain Unchanged omeprazole (omeprazole 20 mg oral delayed release capsule) 1 cap by mouth With breakfast & supper before Unchanged omeprazole (omeprazole 20 mg oral delayed release capsule) See instructions TAKE 1 CAPSULE TWICE A DAY BEFORE BREAKFAST AND SUPPER Unchanged prazosin (prazosin 1 mg oral capsule) 1 cap by mouth Daily at bedtime Unchanged verapamil (verapamil 120 mg/ 12 hours oral tablet, extended release) 1 tab(s) by mouth Two (2) times a day Please take this list to your next doctor s visit. Bring all medications you take, including over the counter medications, herbals and other supplements with you to your doctor s visit. Patients and families are reminded to discard old lists and to update any records with all medication providers or retail pharmacies. Education Materials Moderate Conscious Sedation, Adult, Care After These instructions provide you with information about caring for yourself after your procedure. Your health care provider may also give you more specific instructions. Your treatment has been plannedaccording to current medical practices, but problems sometimes occur. Call your health care provider if you have any problems or questions after your procedure. What can I expect after the procedure? After your procedure, it is common: To feel sleepy for several hours. To feel clumsy and have poor balance for several hours. To have poor judgment for several hours. To vomit if you eat too soon. Follow these instructions at home: For at least 24 hours after the procedure: Do not: ? Participate in activities where you could fall or become injured. ? Drive. ? Use heavy machinery. ? Drink alcohol. ? Take sleeping pills or medicines that cause drowsiness. ? Make important decisions or sign legal documents. ? Take care of children on your own. Rest. Eating and drinking Follow the diet recommended by your health care provider. If you vomit: ? Drink water, juice, or soup when you can drink without vomiting. ? Make sure you have little or no nausea before eating solid foods. General instructions Have a responsible adult stay with you until you are awake and alert. Take zyty-sgo-jddtyfc and prescription medicines only as told by your health care provider. If you smoke, do not smoke without supervision. Keep all follow-up visits as told by your health care provider. This is important. Contact a health care provider if: You keep feeling nauseous or you keep vomiting. You feel light-headed. You develop a rash. You have a fever. Get help right away if: You have trouble breathing. This information is not intended to replace advice given to you by your health care provider. Make sure you discuss any questions you have with your health care provider. Document Released: 01/22/2014 Document Revised: 03/16/2018 Document Reviewed: 07/23/2016 ElseVisualmarks Patient Education 2020 [employer]. HEART CATHETERIZATION/PCI (radial) Discharge Instructions DIET Drink plenty of fluids for the next 48 hours to help your kidneys flush the heart cath dye out of your system ACTIVITY For the next 48 hours: Do not deep bend the wrist Do not lift, push, or pull anything over 5 pounds Do not use the hand/arm to support your weight when rising from a chair or bed Do not drive For the next 7 days: Do not submerse your procedure site in water Do not swim, wash dishes, or take tub baths You may write, eat, type, and shower WOUND CARE Keep a Band-Aid on your procedure site for the next 3-4 days Change the Band-Aid daily or if it gets wet/soiled AFTER YOU GO HOME, CALL YOUR DOCTOR FOR: Any increase in bruising or tenderness from the procedure site Any redness, pus, or other signs of infection at the site A temperature above 100.5 Severe pain at the site DIAL 911 AND RETURN TO THE HOSPITAL FOR: Any bleeding from the procedure site. The site may be bruised or tender, but it should not be bleeding at any time. If your site begins to bleed, hold firm pressure on it and dial 911 to return to the hospital Any increase in swelling at the procedure site. An increase in swelling could mean the area is bleeding under the skin. Hold firm pressure to the site and dial 911 to return to the hospital Document Released: 04/03/2006 Document Revised: 03/20/2013 Document Reviewed: 04/04/2014 ExitCare Patient Information 2015 [employer]. This information is not intended to replace advicegiven to you by your health care provider. Make sure you discuss any questions you have with your health care provider. Additional Information VACCINATE! IT SAVES LIVES! Members of the community who have not yet received the COVID-19 vaccine and would like to receive it can visit one of [facility] vaccine clinics. There are many vaccine clinic locations within the State. For locations and available times, please visit https://[email or web address].[place].gov/. It is important to note that some COVID mobile vaccine clinics are held outdoors and may be canceled in rainy or stormy conditions. To learn more about pediatric vaccinations (ages 5-11), we invite you to visit the [facility] webpage. [email or web address]/[email or web address] [email or web address] learn more about the COVID-19 vaccine, we invite you to visit the CDC website for a list of frequently asked questions.https://www.cdc.gov/coronavirus/2019-ncov/vaccines/faq.html [facility] Patient Portal Access Instructions: Stay connected with your healthcare team and access your personal medical information anytime with the [facility] Patient Portal. Please follow the directions below to create your [facility] account: 1.Access the email account you provided upon registration to the hospital/physician office.2.Look for an invitation email from [facility].3.Open the email and access the invitation link: AcceptInvitation to [facility].4.Fill in the required snowden to create your account. To access your account, visit [employer]. Click the blue button labeled Access Patient Portal and then log in with the username and password that you created in the steps above. You will be able to view your test results, lab results, a summary of your visits, upcoming appointments and more. There is also a convenient messaging option where you can send secure messages to your p rovider. In addition, you will have the ability to download any documents or summaries to your computer and/or send the information securely to a physician. Remember that your healthcare information is confidential, so carefully consider who you will allowto register on the [facility] Patient Portal for access to your information. You can also access the [facility] Patient Portal on the [employer]where fritz. Simply click on Patient Portal and then log into your account. If you would like to receive a full copy of your medical records, please contact the [facility] Medical Records Department by calling [phone], Monday through Monday between 8 a.m. and 4:30 p.m. HOW TO SAFELY DISPOSE OF PRESCRIPTION MEDICATIONS Please use one of the following methods to safely dispose of your unused medications. 1.Use a drug disposal kit: the drug disposal pouch allows you to safely discard your old and unuseddrugs. Ask your nurse to give you one when you are discharged.2.Visit a local take-back location: Many local pharmacies and police departments have programs that collect old and unwanted prescriptiondrugs. Call your local pharmacy or go to http://[employer]/6G3Lz1n to find one close to you.3.Make use of household items: Use cat litter or old coffee grounds to dispose medications if other options arenot available. Mix your drugs with these household products, seal them in an airtight container andthrow it into the garbage. Call [facility]: [phone] to be sure your drugs can be disposed of in this way. Some medicines may require a different approach.4.Never flush your medications down the toilet. IF YOU HAVE BEEN PRESCRIBED AN OPIOID FOR PAIN If you have been prescribed an opioid (such as hydrocodone, oxycodone or morphine), it is critical to understand the possible side effects and risks of opioid pain medications. Even when taken as directed, opioids can have several side effects including: Tolerance, meaning you might need to take more of a medication for the same pain relief. Nausea, vomiting and/or constipation. Sleepiness, dizziness, dry mouth, confusion, depression or itching. Physical dependence, meaning you have withdrawal symptoms when a medication is stopped, can develop within a few days. KNOW YOUR RESPONSIBILITIES It is important to know exactly how much and how often to take the opioid pain medications you are prescribed. Never take opioids in higher amounts or more often than prescribed. Do not combine opioids with alcohol or other drugs that cause drowsiness, such as benzodiazepines, also known as benzos, including diazepam and alprazolam, muscle relaxants or sleep aids. Never sell or share prescription opioids. This is illegal. Store opioids in a secure place and out of reach of others (including children, family, friends and visitors). The last page of this document has been signed and retained as a CHART COPY. Signatures Patient Education Materials Moderate Conscious Sedation, Adult, Care After 3- Heart Cath/PCI radial (01/2018) (CUSTOM) Medication Leaflets My discharge plan and instructions have been reviewed and explained to me and I,DELMIS PATEL understand my current condition and have read and understand these discharge instructions. I have received a written copy of the plan/instructions. If I have questions, I am aware that I should contact my doctor. Patient/Fifth Grade Teacher Signature: Date/Time: Relationship to Patient: Witness Name/Signature: [facility]Time: [id number] Note* Exam Date Time Procedure Performing Provider Status 07/26/23 9:12 AM Cardiac Catheterization -CV Auth (Verified) [facility] 03-06-2024 Hospital Discharge instructions Patient Education 06/21/2023 16:58:23 Ileus Ileus The digestive tract. Ileus occurs when there is a problem with motility in the stomach and small or large intestine (bowel). Motility is the movement of food and waste through the digestive tract. Ileus is not caused by a physical blockage (obstruction). Normally, muscles in the bowel coley contract to move waste along. Signals from nerves tell the muscles when to contract. With ileus, this movement slows down or stops completely. As a result, waste can t move through the bowels and out of the body. This can cause belly (abdominal) pain and other symptoms. Treatment is needed to restore normal movement and ease symptoms. Causes of ileus Ileus can be caused by the following: Abdominal surgery Abdominal infection Injury to blood vessels that supply blood to the abdomen Low levels of sodium or potassium (electrolyte imbalance) Certain medicines, such as opioid pain medicines Certain kidney or lung diseases Certain health problems, such as cystic fibrosis and diabetes Symptoms of ileus Common symptoms of ileus include: Belly swelling or bloating Upset stomach (nausea) and vomiting Belly cramps Constipation or diarrhea Loss of appetite Not able to keep food down Not able to pass stool or gas Diagnosing ileus Your healthcare provider will ask about your symptoms and health history. You ll also have a physical exam. If your provider thinks you may have ileus, tests may be done to confirm the problem. Thesecan include: Imaging tests. These provide pictures of the bowels. Common tests include X-rays and a CT scan. Blood tests. These are done to jaison gan for infection and other problems, such as fluid loss (dehydration). Upper GI (gastrointestinal) series. This test takes X-rays of the upper digestive tract, from the mouth to the small intestine. An X-ray dye (contrast fluid) is used. The dye coats the inside of the upper digestive tract so that it will show up clearly on X-rays. Treating ileus In most cases, ileus goes away by itself when the main cause clears up. The goal is to manage symptoms until movement in the digestive tract returns to normal. Treatment takes place in a hospital. Aspart of your care, the following may be done: No food or drink is given by mouth. This allows your bowels to rest. An IV (intravenous) line is placed in a vein in your arm or hand. The IV line is used to give fluids and nutrition. It may also be used to give medicines. These may be needed to improve movement in your digestive tract, or to ease pain. They may also be needed to treat any underlying infections or conditions you have. A soft, thin, flexible tube (nasogastric tube) is inserted through your nose and into your stomach.The tube is used to remove extra gas and fluid in your stomach and bowels. This helps to ease symptoms such as pain and swelling. You ll be watched closely in the hospital until your symptoms get better. Your provider will tell you when you re well enough to go home. This is usually within a few days. In rare cases, problems may occur. Other treatments, such as surgery, may then be done. Your provider will tell you more about other treatments, if needed. Long-term concerns After treatment, most people recover completely. In some cases, you may need to see your provider for a follow-up appointment. When to call your provider Call your healthcare provider right away if you have any of the following: Fever of 100.4 F (38 C) or higher, or as advised by your provider Belly swelling or pain that won t go away Not able to pass stool or gas Nausea and vomiting Getting full very easily with only small amounts of food or drink Bleeding from the rectum Black, tarry stool [id number] [employer]. [address] [place] [address] 81994. All rights reserved. This information is not intended as a substitute for professional medical care. Always follow yourhealthcare professional's instructions. Follow Up Care 06/21/2023 12:13:28 With:JERO WHITING DO Address: [address] [place] [address] [phone] When:2-[address] [facility] 03-06-2024 Emergency department Discharge summary Discharge Instructions Thank you for allowing [facility] to assist you with your healthcare needs. The following is importantdischarge information regarding your hospital visit. 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 If not given a device in the ED, expect to receive one in the mail. If you have not received a device within 7 days after discharge, please call [facility] at [phone]. Post Acute Orders No qualifying data available. You Need to Schedule the Following Appointments Follow Up with JERO WHITING DO When Within 2-4 days Where: [address] [place] [phone] Allergies Nickel (rash) Medications Please ask your primary doctor or pharmacist before taking any other medication not listed, including over the counter drugs, herbal medications, vitamins and or supplements as they may interact withyour home medications. What How Much When Instructions Last Dose Unchanged amitriptyline (amitriptyline 10 mg oral tablet) 2 tab(s) by mouth Daily at bedtime Unchanged cyclobenzaprine (cyclobenzaprine 10 mg oral tablet) 1 tab(s) by mouth Three (3) times a day as needed for as needed for spasm Unchanged DULoxetine (DULoxetine 60 mg oral delayed release capsule) 1 cap by mouth Two (2) times a day Unchanged linaclotide (linaclotide 290 mcg oral capsule) 1 cap by mouth Once a day 30 minutes before breakfast; on an empty stomach; do not crush or chew Unchanged meloxicam (meloxicam 15 mg oral tablet) 1 tab(s) by mouth Once a day as needed for arthritis pain Unchanged omeprazole (omeprazole 20 mg oral delayed release capsule) See instructions TAKE 1 CAPSULE TWICE A DAY BEFORE BREAKFAST AND SUPPER Unchanged verapamil (verapamil 120 mg/ 12 hours oral tablet, extended release) 1 tab(s) by mouth Once a day Please take this list to your next doctor s visit. Bring all medications you take, including over the counter medications, herbals and other supplements with you to your doctor s visit. Patients and families are reminded to discard old lists and to update any records with all medication providers or retail pharmacies. Education Materials Ileus The digestive tract. Ileus occurs when there is a problem with motility in the stomach and small or large intestine (bowel). Motility is the movement of food and waste through the digestive tract. Ileus is not caused by a physical blockage (obstruction). Normally, muscles in the bowel coley contract to move waste along. Signals from nerves tell the muscles when to contract. With ileus, this movement slows down or stops completely. As a result, waste can t move through the bowels and out of the body. This can cause belly (abdominal) pain and other symptoms. Treatment is needed to restore normal movement and ease symptoms. Causes of ileus Ileus can be caused by the following: Abdominal surgery Abdominal infection Injury to blood vessels that supply blood to the abdomen Low levels of sodium or potassium (electrolyte imbalance) Certain medicines, such as opioid pain medicines Certain kidney or lung diseases Certain health problems, such as cystic fibrosis and diabetes Symptoms of ileus Common symptoms of ileus include: Belly swelling or bloating Upset stomach (nausea) and vomiting Belly cramps Constipation or diarrhea Loss of appetite Not able to keep food down Not able to pass stool or gas Diagnosing ileus Your healthcare provider will ask about your symptoms and health history. You ll also have a physical exam. If your provider thinks you may have ileus, tests may be done to confirm the problem. Thesecan include: Imaging tests. These provide pictures of the bowels. Common tests include X-rays and a CT scan. Blood tests. These are done to jaison gan for infection and other problems, such as fluid loss (dehydration). Upper GI (gastrointestinal) series. This test takes X-rays of the upper digestive tract, from the mouth to the small intestine. An X-ray dye (contrast fluid) is used. The dye coats the inside of the upper digestive tract so that it will show up clearly on X-rays. Treating ileus In most cases, ileus goes away by itself when the main cause clears up. The goal is to manage symptoms until movement in the digestive tract returns to normal. Treatment takes place in a hospital. Aspart of your care, the following may be done: No food or drink is given by mouth. This allows your bowels to rest. An IV (intravenous) line is placed in a vein in your arm or hand. The IV line is used to give fluids and nutrition. It may also be used to give medicines. These may be needed to improve movement in your digestive tract, or to ease pain. They may also be needed to treat any underlying infections or conditions you have. A soft, thin, flexible tube (nasogastric tube) is inserted through your nose and into your stomach.The tube is used to remove extra gas and fluid in your stomach and bowels. This helps to ease symptoms such as pain and swelling. You ll be watched closely in the hospital until your symptoms get better. Your provider will tell you when you re well enough to go home. This is usually within a few days. In rare cases, problems may occur. Other treatments, such as surgery, may then be done. Your provider will tell you more about other treatments, if needed. Long-term concerns After treatment, most people recover completely. In some cases, you may need to see your provider for a follow-up appointment. When to call your provider Call your healthcare provider right away if you have any of the following: Fever of 100.4 F (38 C) or higher, or as advised by your provider Belly swelling or pain that won t go away Not able to pass stool or gas Nausea and vomiting Getting full very easily with only small amounts of food or drink Bleeding from the rectum Black, tarry stool [phone] [employer]. [address] [place] [address], [place] [address]. All rights reserved. This information is not intended as a substitute for professional medical care. Always follow yourhealthcare professional's instructions. Additional Information VACCINATE! IT SAVES LIVES! Members of the community who have not yet received the COVID-19 vaccine and would like to receive it can visit one of [facility] vaccine clinics. There are many vaccine clinic locations within the [facility]. For locations and available times, please visit www.gettheshot.coronavirus.[place].gov/. It is important to note that some COVID mobile vaccine clinics are held outdoors and may be canceled in rainy or stormy conditions. To learn more about pediatric vaccinations (ages 5-11), we invite you to visit the [facility] webpage. https://www.akIbetors.org/pages/1998-Qgozj-Kzxhuksdgwf-Vpaykrnbci-Qcedg-Csb stions.htmlTo learn more about the COVID-19 vaccine, we invite you to visit the CDC website for a list of frequently asked questions. https://www.cdc.gov/coronavirus/2019-ncov/vaccines/faq.html [facility] Patient Portal Access Instructions: Stay connected with your healthcare team and access your personal medical information anytime with the [facility] Patient Portal. If you would like a full copy of your medical records please contact the [facility] Medical Records Department Monday through Monday between 8a.m. and 4:30p.m. Please follow the directions below to access the portal: 1.Access the email account you provided upon registration to the hospital.2.Look for an invitation email from [facility].3.Open the email and access the invitation link: Accept Invitation to [facility].Fill in the required snowden to create your account. Sign into www.[employer] with your username and password that you created in the above steps to stay up to date. You can then view a summary of results, a summary of your visits, and the ability to download your summaries to your computer or send the information securely to a physician. Remember that your healthcare information is confidential, so carefully consider who you will allow to register on the [facility] Patient Portal for access to your information. You can also access the [facility] Patient Portal on the [employer] fritz. Simply click on Health Records under [employer] and then click on the [employer] logo. HOW TO SAFELY DISPOSE OF PRESCRIPTION MEDICATIONS Please use one of the following methods to safely dispose of your unused medications. 1.Use a drug disposal kit: the drug disposal pouch allows you to safely discard your old and unuseddrugs. Ask your nurse to give you one when you are discharged.2.Visit a local take-back location: Many local pharmacies and police departments have programs that collect old and unwanted prescriptiondrugs. Call your local pharmacy or go to http://[employer]/1U4Fg7t to find one close to you.3.Make use of household items: Use cat litter or old coffee grounds to dispose medications if other options arenot available. Mix your drugs with these household products, seal them in an airtight container andthrow it into the garbage. Call [facility]: [phone] to be sure your drugs can be disposed of in this way. Some medicines may require a different approach.4.Never flush your medications down the toilet. IF YOU HAVE BEEN PRESCRIBED AN OPIOIDS FOR PAIN If you have been prescribed an opioid (such as hydrocodone, oxycodone or morphine), it is critical to understand the possible side effects and risks of opioid pain medications. Even when taken as directed, opioids can have several side effects including: Tolerance, meaning you might need to take more of a medication for the same pain relief. Nausea, vomiting and/or constipation. Sleepiness, dizziness, dry mouth, confusion, depression or itching. Physical dependence, meaning you have withdrawal symptoms when a medication is stopped ? this can develop within a few days. KNOW YOUR RESPONSIBILITIES It is important to know exactly how much and how often to take the opioid pain medications you are prescribed. Never take opioids in higher amounts or more often than prescribed. Do not combine opioids with alcohol or other drugs that cause drowsiness, such as benzodiazepines, also known as benzos,including diazepam and alprazolam, muscle relaxants or sleep aids. Never sell or share prescriptionopioids. This is illegal. Store opioids in a secure place and out of reach of others (including children, family, friends and visitors). The last page(s) of this document has been signed and retained as a CHART COPY Signatures Patient Education Materials Ileus Medication Leaflets My discharge plan and instructions have been reviewed and explained to me and I,DELMIS PATEL understand my current condition and have read and understand these discharge instructions. I have received a written copy of the plan/instructions. If I have questions, I am aware that I should contact my doctor. Patient/Fifth Grade Teacher Signature: Date/Time: Relationship to Patient: Witness Name/Signature: [id number] Note ORIGINAL EXAMINATION: CT OF THE ABDOMEN AND PELVIS WITH CONTRAST 06/21/2023 3:30 pm TECHNIQUE: CT of the abdomen and pelvis was performed with the administration of intravenous contrast. Multiplanar reformatted images are provided for review. Automated exposure control, iterative reconstruction, and/or weight based adjustment of the mA/kV was utilized to reduce the radiation dose to as low as reasonably achievable. COMPARISON: None. HISTORY: ORDERING SYSTEM PROVIDED HISTORY: Reason for Exam: MID ABD PAIN, INTERMITTENT N/D X 9 DAYS abdominal pain FINDINGS: Lower Chest: Moderate-large decompressed hiatal hernia. Otherwise, no acute abnormality visualized lower thorax. Organs: 2.7 cm subcapsular hypodense mass right hepatic lobe axial images 23-28 series 2, smaller similar appearing hypodense mass medial segment left hepatic lobe axial images 21 and 22 sequence 2 measuring 1.1 cm.. Density values suggest cyst however, liver ultrasound suggested for further evaluation. Diffuse hypoattenuation of the liver relative the spleen also noted consistent with steatosis. Otherwise, no acute CT abnormality visualized abdominal organs. GI/Bowel: Partial distension and air-fluid leveling distal small bowel and throughout the large bowel to the level of mid descending colon. Maximal small bowel diameter is 1.9 cm. No pathologic distention GI tract, bowel wall edema or mucosal thickening. Unremarkable postoperative changes noted in the right colon. Appearance is consistent with mild ileus or enteritis. Moderate-large decompressed hiatal hernia noted. Otherwise, no acute CT abnormality. Pelvis: No acute CT abnormality. Peritoneum/Retroperitoneum: Postoperative no acute abnormality. Bones/Soft Tissues: Postoperative and degenerative changes lower lumbar spine L2 through S1. Severe bilateral foraminal stenosis and exiting nerve compression noted L4-L5 and L5-S1. Otherwise, no acute abnormality IMPRESSION: Air-fluid leveling and partial distention distal small bowel and throughout the large intestine to the level of mid descending colon with maximal small bowel diameter 1.9 cm. Appearance is most consistent with mild ileus, enteritis or reactive bowel-gas pattern. Moderate-large decompressed hiatal hernia. 2 hypodense masses in the liver as described measuring 2.7 cm in greatest dimension. Density values suggest cyst however, hepatic ultrasound suggested for further evaluation. Postoperative and degenerative changes throughout the lumbar spine L2 through S1. Correlation with clinical evidence of radiculopathy L4-L5 and L5-S1 distribution suggested.. Interpreted by: Eliu Finney DO Preliminary Report By: Eliu Finney DO Electronically signed By Eliu Finney DO Dictated Date: 06/21/2023 3:35:02 PM Prelim Date: 06/21/2023 3:45:51 PM Sign Date: 06/21/2023 3:45:51 PM Ordering Provider: [facility]03-06-2024 NoteSINUS TACHYCARDIA BORDERLINE T ABNORMALITIES, ANTERIOR LEADS SEE DICTATION Electronic Signature: GREGORY LOWERY MD 06/21/2023 13:46:01[facility] 08-11-2023 Note* Exam Date Time Procedure Performing Provider Status 11/25/22 8:00 AM Echocardiogram, Adult ([facility]) Auth (Verified) [facility] 06-02-[address] Caballero [facility] September 16, 2022 2:46pm Note Date/Time September 16, 2022 1:47p [facility] Medical Records Department [address] [place] [address] Emergency Department Summary 09/16/22 MR#: [id number] Acct: [id number] Name: DELMIS PATEL Rep #:[id number] : 1965 57 From: Lowell Caballero MD PCP: Dr. Jero Whiting DO Status:REG ER Location: ED HPI History of Present Illness Chief Complaint: Nausea/Vomiting Detail of Chief Complaint: Abdominal pain with nausea and vomiting Informant: patient and spouse/S.O. Onset/Context/Timing Onset: Today (Nausea and vomiting started today) Context: Sudden Onset Timing: Continuous Quality: Pain Location: Predominantly upper abdomen Current Severity: Mild Maximum Severity: Severe Worsened by: Palpation Relieved by: Nothing Associated Symptoms Associated Symptoms: Diaphoresis Narrative Narrative: Patient is a 57-year-old woman who underwent a right colectomy due to nonresectable cecal [place] [address] Jero Garcia. She recently has had night sweats. She denies weight loss or weight gain. She denies increased abdominal girth. She denies intolerance to greasy or fried foods. She is status post cholecystectomy. She denies black or maroon-colored stool. Last bowel movement was yesterday. She denies change in color, consistency or caliber of her stool. She states she is scheduled for an outpatient CAT scan because of concern for renal tumors. Patient denies headache, visual, ocular auditory symptoms. Patient denies cardiac or respiratory symptoms. Patient's had colonoscopy and right hemicolectomy with Dr. Waters. He has had back surgery for fusion. Also status post bilateral tubal ligation Prior similar symptoms: No Recent [facility] Medical History (Updated 09/16/22 @ 14:[address] Lowell Caballero MD) Ladd esophagus Ladd's esophagus Chiari malformation Dysuria GERD with esophagitis History of fibromyalgia History of IBS Hypokalemia Internal hemorrhoids Lumbar disc disorder Neck pain Neuralgia Osteoarthritis Rectal bleeding Tarsal tunnel syndrome Home Medications amitriptyline 10 mg tablet 10 mg PO QHS sleep 03/28/17 [History Last Taken Unknown] cyclobenzaprine 10 mg tablet 10 mg PO ONCE PRN arthritis 03/28/17 [History Last Taken Unknown] duloxetine 60 mg capsule,delayed release 120 mg PO QDAY depression/pain 03/28/17[History Last Taken Unknown] eszopiclone 2 mg tablet 2 mg PO QHS sleep 03/28/17 [History Last Taken Unknown] meloxicam 15 mg tablet 15 mg PO DAILY pain 03/28/17 [History Last Taken 01/28/18] docusate sodium 50 mg capsule 200 mg PO BID stool softner 12/21/17 [History Last Taken Unknown] gabapentin 300 mg capsule 300 mg PO TID pain 01/29/18 [History Last Taken Unknown] omeprazole 20 mg capsule,delayed release 20 mg PO BID gerd 01/29/18 [History Last Taken 02/05/18 08:00] ondansetron 4 mg disintegrating tablet 4 mg PO Q8H PRN PRN Nausea #10 tabs 09/16/22 [Rx Last Taken Unknown] Allergy/AdvReac Type Severity Reaction Status Date / Time No Known Allergies Allergy Verified 09/16/22 13:28 Family History Mother Hypertension Father Degeneration of intervertebral disc Hypertension Surgical History (Updated 09/16/22 @ 14:[address] Lowell Caballero MD) History of back surgery History of esophagogastroduodenoscopy (EGD) History of surgical removal of ganglion cyst Hx of spinal fusion Hx of tubal ligation S/P cholecystectomy S/P colonoscopy S/P partial hysterectomy Social History (Updated 09/16/22 @ 13:[address] Lowell Caballero MD) household members: spouse Smoking Status: Former smoker quit status: considering quitting alcohol intake: current alcohol intake frequency: a few times a week substance use type: does not use caffeine: Yes what type of physical activity do you participate in: walking and weight training frequency: 1-2 times per week seatbelt use: always ROS ROS ED Constitutional Constitutional ED: Reports sweats; Denies chills, fever(s), subjective or weightloss Eyes Eyes: Denies blurry vision, change in vision or diplopia ENT ENT ED: Denies ear pain, rhinorrhea or sore throat Cardiovascular Cardiovascular: Denies chest pain or palpitations Respiratory/Chest Respiratory/Chest: Denies cough, dyspnea or dyspnea on exertion Gastrointestinal Gastrointestinal: Reports abdominal pain, nausea and vomiting; Denies constipation, diarrhea or melena Genitourinary Genitourinary ED: Denies dysuria, hematuria or urinary frequency Musculoskeletal Musculoskeletal: Denies arthralgias, back pain, myalgias or neck pain Integumentary Denies rash Neurologic Neurologic: Denies headache(s) or paresthesias Psychiatric Psychiatric: Denies anxiety or depression Endocrine Endocrinology: Denies cold intolerance, heat intolerance, polydipsia or polyuria Hematologic/Lymphatic Hematologic/Lymphatic: Reports systems reviewed and no addt'l complaints, exceptas documented EXAM Physical Exam Const Vital Signs: 09/16/22 13:23 09/16/22 13:31 09/16/22 14:29 Temperature 98.1 F Temperature Source Oral Pulse Rate 76 72 Respiratory Rate 16 14 Respiratory Effort Short of Breath Respiratory Depth Normal Respiratory Pattern Normal Blood Pressure 151/83 H 172/90 H Blood Pressure Mean 105 117 Pulse Ox 98 97 Oxygen Delivery Method Room Air Room Air 09/16/22 14:30 Temperature Temperature Source Pulse Rate Respiratory Rate Respiratory Effort Respiratory Depth Respiratory Pattern Blood Pressure 146/94 H Blood Pressure Mean 111 Pulse Ox Oxygen Delivery Method Positive well nourished, well developed and obese Constitutional Narrative: There is acral cyanosis/cyanosis of her feet. Capillary refill is delayed. There is a palpable DP pulse. Patient appears pale. She is in obvious discomfort. General Appearance ED: well developed, diaphoretic and pallor; Negative for NAD Nutritional Appearance: obese HEENT Reports dry mucous membranes HEENT Narrative: Head is atraumatic and normocephalic. Ears are normal. Nares are patent. Posterior pharynx unremarkable. Mouth ED: Yes dry mucous membranes Mouth: dry mucous membranes Eyes PERRL and EOMs intact bilaterally General Eye ED: Negative for pale conjunctiva or scleral icterus Neck no lymphadenopathy, supple and no JVD Chest Wall inspection of chest normal and palpation of chest normal Resp normal respiratory effort and clear to auscultation bilaterally Cardio regular rate, regular rhythm, S1 normal heart sound, S2 normal heart sound and no murmurs GI no masses; Negative for non-tender, non-distended or hepatosplenomegaly Auscultation: hypoactive bowel sounds Palpation: tender other (Diffuse least tender is left lower quadrant.) and guarding LUQ and RUQ; Negative for splenomegaly, mass or rebound tenderness present Back/Spine no CVA tenderness Back/Spine Narrative: Well-healed midline surgical scar noted. Extremity Negative for normal to inspection Extremity Narrative: Cyanosis of the feet with delayed capillary refill. Patient denies claudicationsymptoms. General Extremety ED: Negative for edema or tenderness General Extremity: Negative for edema Neuro oriented x3, CN's II-XII intact bilaterally and no sensory deficits noted Sensorium / Orientation: alert Psych mental status grossly normal Skin no rashes or lesions noted, no wounds and No skin turgor normal Skin Narrative: Diaphoretic. General Skin Exam: pallor; Negative for jaundice MDM MDM MDM Narrative Medical decision making narrative: Prior records authored by Dr. Waters and surgical physician esl instructional assistant were reviewed. Patient polyp was not malignant. There is no blood work available through [facility] since 2017. Since patient appears in discomfort with nausea and vomiting CT of the abdomen and pelvis was ordered with IVcontrast. She was treated with Zofran and morphine for her nausea/vomiting and pain. Appropriate blood work was obtained to assess H&H white count differential. Renal function prior to CT with IV contrast as well as electrolytes and anion gap. Since she has significant tenderness in the upper quadrants hepatic and lipase was ordered as well. History & Record Review Additional record(s) reviewed:: Prior inpatient record, Prior outpatient record,Prior ED visit and Prior labs (Patient had blood work through [facility] on August 26. AST ALT and alk phos were elevated. CBC was unremarkable. BUN and creatinine were normal with a creatinine of 0.82.) Lab Data Attestation: I reviewed the patient's lab results. Lab results narrative: BMP is remarkable for elevated BUN to creatinine ratio of 23:1. BUN is 24 with a creatinine of 1.02 and GFR 59. AST ALT and alk phos are elevated which they were a month ago. Lipase is normal. CBC is pending. CAT scan is pending. ([id number]) Labs: Laboratory Results - last 24 hr 09/16/22 13:50 Sodium 141 Potassium 4.1 Chloride 108 H Carbon Dioxide 28.0 Anion Gap 5 BUN 24 H Creatinine 1.02 Estim Creat Clear Calc 47.81 Est GFR (MDRD) Af Amer 71 Est GFR (MDRD) Non-Af 59 L BUN/Creatinine Ratio 23.5 H Glucose 102 Calcium 9.5 Total Bilirubin 0.60 Direct Bilirubin 0.16 AST 62 H ALT 92 H Alkaline Phosphatase 158 H Total Protein 7.9 Albumin 3.9 Globulin 4.0 Lipase 27 Radiography Diagnostic Testing: Clinical Impression(s) from Imaging Studies Abdomen/Pelvis CT 09/16/22 13:37 IMPRESSION: Diffuse fatty infiltration. Status post cholecystectomy. Partial right hemicolectomy. Electronically Signed: Jose Luis Cohen MD at 14:30 EDT , Treatment and Re-Evaluation :: Patient was reassessed and informed of her laboratory results. Patient is no longer diaphoretic or pale. There is no cyanosis of her feet. She is no longervomiting. Patient was told there are no tumors in her kidney. The reason her liver enzymes were elevated/are elevated is because of fatty liver. Discharge Plan Triage Chief Complaint: Nausea/Vomiting Other Complaint: Shortness of Breath ED Provider: Lowell Caballero Dx/Rx/DC Orders Clinical Impression: Acute generalized abdominal pain, Nausea & vomiting, Fatty liver, Elevated liver transaminase level, Status post right hemicolectomy Instructions: Nonalcoholic Fatty Liver ..., ED Vomiting (Adult) Prescriptions: New ondansetron [ondansetron] 4 mg tablet,disintegrating 4 mg PO Q8H PRN PRN (Reason: Nausea) Qty: 10 0RF No Action amitriptyline 10 mg tablet 10 mg PO QHS cyclobenzaprine 10 mg tablet 10 mg PO ONCE PRN (Reason: arthritis) duloxetine 60 mg capsule,delayed release(DR/EC) 120 mg PO QDAY eszopiclone 2 mg tablet 2 mg PO QHS meloxicam 15 mg tablet 15 mg PO DAILY docusate sodium 50 MG capsule 200 mg PO BID gabapentin 300 MG capsule 300 mg PO TID omeprazole 20 MG capsule 20 mg PO BID Primary Care Provider: Jero Whiting Referrals: Jero Whiting DO [Primary Care Provider] - 3-5 Days Disposition Disposition: Home, Self Care What to do if you have Problems For any increased pain, shortness of breath, bleeding, nausea or vomiting, chestpain, or any unexpected problems, contact your Primary Care Provider. Call [facility] ([phone]) or report to the closest Emergency Room. Call 911 if necessary. 09/16/22 1446 <Electronically signed by Lowell Caballero MD> Cosigner Signature (if applicable): CC: Dr. Jero Whiting DO ~ Signed [facility] Work Phone: Evaluation + Plan note Future Appointments Appointment Date:09/08/2022 01:00:00 PM Scheduled Provider:JERO WHITING DO Location:[facility] Appointment Type:PC OV Appointment Date:11/02/2022 09:00:00 AM Scheduled Provider:JERO WHITING DO Location:[facility] Appointment Type: OV Diagnostic Tests Pending * Metanephrines, Plasma 08/26/22 * Thyroid Stimulating Immunoglobulin 08/26/22 Future Scheduled Tests Laboratory* Albumin/Creatinine Ratio, Random Urine 08/25/22 [facility] Evaluation + Plan note Future Appointments Appointment Date:12/01/2022 02:30:00 PM Scheduled Provider: Location:[facility] Appointment Type:CV OV Appointment Date:01/12/2023 11:15:00 AM Scheduled Provider:MICHI BURROUGHS MD Location:[facility] Appointment Type:[employer] Future Scheduled Tests Laboratory* Cortisol Level 11/03/22 * Antinuclear Antibody Screen, Serum 11/03/22 * C-Reactive Protein 11/03/22 * Catecholamines, 24 Hour Urine 11/03/22 * Lipid Profile 09/19/22 * Albumin/Creatinine Ratio, Random Urine 08/25/22 * Sedimentation Rate Automated 11/03/22 Radiology* NM Myocardial Spect Rest/Stress 11/03/22 [facility] [employer] + Plan note Future Appointments Appointment Date:12/01/2022 02:30:00 PM Scheduled Provider: [facility] Type:CV OV Appointment Date:01/12/2023 11:15:00 AM Scheduled Provider:MICHI BURROUGHS MD Location:[facility] Appointment Type:[employer] Diagnostic Tests Pending * Catecholamines, 24 Hour Urine 11/05/22 Future Scheduled Tests Laboratory* Cortisol Level 11/03/22 * Antinuclear Antibody Screen, Serum 11/03/22 * C-Reactive Protein 11/03/22 * Lipid Profile 09/19/22 * Albumin/Creatinine Ratio, Random Urine 08/25/22 * Sedimentation Rate Automated 11/03/22 Radiology* NM Myocardial Spect Rest/Stress 11/03/22 [facility] Evaluation + Plan note Future Appointments Appointment Date:11/28/2022 08:30:00 AM Scheduled Provider: Location:[facility] Appointment Type:NM Myocardial Spect Rest/Stress Ella Appointment Date:12/01/2022 02:30:00 PM Scheduled Provider: Location:[facility] Appointment Type:CV OV Appointment Date:01/12/2023 11:15:00 AM Scheduled Provider:MICHI BURROUGHS MD Location:[facility] Appointment Type:[employer] Future Scheduled Tests Laboratory* Cortisol Level 11/03/22 * Antinuclear Antibody Screen, Serum 11/03/22 * C-Reactive Protein 11/03/22 * Lipid Profile 09/19/22 * Albumin/Creatinine Ratio, Random Urine 08/25/22 * Sedimentation Rate Automated 11/03/22 Radiology* NM Myocardial Spect Rest/Stress 11/28/22 [facility] Evaluation + Plan note Future Appointments Appointment Date:08/02/2023 02:00:00 PM Scheduled Provider:JERO WHITING DO Location:[facility] Appointment Type:PC OV Future Scheduled Tests Laboratory* Cortisol Level 11/03/22 * Antinuclear Antibody Screen, Serum 11/03/22 * C-Reactive Protein 11/03/22 * Lipid Profile 09/19/22 * Albumin/Creatinine Ratio, Random Urine 08/25/22 * Sedimentation Rate Automated 11/03/22 [facility] evaluation + Plan note Future Appointments Appointment Date:08/02/2023 02:00:00 PM Scheduled Provider:JERO WHITING DO Location:[facility] Appointment Type:PC OV Appointment Date:08/31/2023 03:15:00 PM Scheduled Provider: Location:[facility] Appointment Type:CV OV Future Scheduled Tests Laboratory* Cortisol Level 11/03/22 * Antinuclear Antibody Screen, Serum 11/03/22 * C-Reactive Protein 11/03/22 * Lipid Profile 09/19/22 * Albumin/Creatinine Ratio, Random Urine 08/25/22 * Sedimentation Rate Automated 11/03/22 [facility] evaluation + Plan note Future Appointments Appointment Date:05/01/2024 10:00:00 AM Scheduled Provider:JERO WHITING DO Location:[facility] Appointment Type:PC OV [facility] Evaluation + Plan note Future Appointments Appointment Date:07/31/2024 10:00:00 AM Scheduled Provider:JERO WHITING DO Location:[facility] Appointment Type: OV [facility] Evaluation + Plan note Future Appointments Appointment Date:02/05/2025 10:00:00 AM Scheduled Provider:KAY SYED Location:[facility] Appointment Type: OV Future Scheduled Tests Laboratory* Lipid Profile 01/18/25 * Albumin/Creatinine Ratio, Random Urine 01/18/25 * Complete Metabolic Panel 01/18/25 [facility] Evaluation noteThere may be information available, but it has not been provided by the sender.[facility] Work Phone: Evaluation noteNo assessment information available [facility] Work Phone: Evaluation note* Diagnosis Acute cough- Primary Wheezing Smoking history Personal history of tobacco use, presenting hazards to health documented in this encounter [facility] course Narrative No data available for this section [facility] Discharge instructions No data available for this section [facility] Instructions* Instruction Description Start Date Patient advised to follow-up with Primary Care Physician for BMI management. [facility] Work Phone: Instructions* Instruction Description Start Date Please follow-up with Primar y Care Physician or Agriculture Specialist for treatment or adjustment of medication regarding elevated blood pressure.Patient advised to follow-up with Primary Care Physician for BMI management. [facility] Work Phone: Progress note No data available for this section [facility] Reason for referral (narrative)No reason for referral information available[facility] Work Phone: Summary Purpose Family History No Family History Records Found Relationship Condition Age at Onset Recorded Date/T luz elena mother Hypertension Unknown father Degeneration of intervertebral disc Unkno wn Hypertension Unknown Advance Directives No Advanced Directives Records Found Advance Directive Response Recorded Date/ Time Living Will Yes September 16, 2022 1 :26pm Power of Irrigationist Designer Yes September 16, 2022 1:26pm Name of Medical Power of Irrigationist Designer KEVIN Ramirez September 16, 2022 1:26pm Chief Complaint Chief Complaint Description Start Date lower back post ANTERIOR: Ary mbar discectomy L5-S1 retroperitoneal approach; ALIF L5-S1. POSTERIOR: Revision RIGHT microdecompression L5 S1 Posterolateral Fusion RIGHT L5-S1 on 01/30/2019 Preliminary chief co mplaint data, not yet signed by the author as of Chief Complaint Description Start Date lower back post ANTERIOR: Ary mbar discectomy L5-S1 retroperitoneal approach; ALIF L5-S1. POSTERIOR: Revision RIGHT microdecompression L5 S1 Posterolateral Fusion RIGHT L5-S1 on 01/30/2019 Preliminary chief co mplaint data, not yet signed by the author as of Chief Complaint and Reason for Visit Chief Complaint GI Chief Complaint Admit Date LUMBAR SPINE December 02, 2024 9: 23am Room 2 December 02, 2024 9: 48am Additional Source Comments (unrecognized sect ion and content) No Status Records Found INFORMATION SOURCE (unrecogn ized section and content) DATE CREATED AUTHOR 10/31/2018 [facility] ([place]) DATE CREATED AUTHOR AUTHOR'S ORGANIZ ATION 08/04/2023 [facility] ([place]) DATE CREATED AUTHOR AUTHOR'S ORGANIZ ATION 10/24/2024 [facility] DATE CREATED AUTHOR AUTHOR'S ORGANIZ ATION 11/20/2024 [facility] DATE CREATED AUTHOR AUTHOR'S ORGANIZ ATION 12/05/2024 [facility] Source Comments (unrecognize d section and content) In the event this informatio n is protected by the Federal Confidentiality of Alcohol and Drug Abuse Patient Records regulations: The Federal rules restrict any use of the information to criminally investigate or prosecute any alcohol or drug abuse patient.[facility] Center[facility] the event this information is protected by the Federal Confidentiality of Alcohol and Drug Abuse Patient Records regulations: The Federal rules restrict any use of the information to criminally investigate or prosecute any alcohol or drug abuse patient.[facility] Reason for Visit (unrecogniz ed section and content) Reason For Visit Description Postop - 1st visit Preliminary reason f or visit data, not yet signed by the author as of lower back post ANTERIOR: Ary mbar discectomy L5-S1 retroperitoneal approach; ALIF L5-S1. POSTERIOR: Revision RIGHT microdecompression L5 S1 Posterolateral Fusion RIGHT L5-S1 on 01/30/2019 Reason For Visit Description Start Date Postop - subsequent visit Preliminary reason f or visit data, not yet signed by the author as of lower back post ANTERIOR: Ary mbar discectomy L5-S1 retroperitoneal approach; ALIF L5-S1. POSTERIOR: Revision RIGHT microdecompression L5 S1 Posterolateral Fusion RIGHT L5-S1 on 01/30/2019 Reason Comments Cough Chest congestion, so re throat x 2 weeks Patient Care team informatio n (unrecognized section and content) Team Status: Active Member Role Status Dates Dr. Carlos Noguera , Family Provider Active Dr. Jero Whiting DO Primary Care Provider Active Team Status: Inactive Member Role Status Dates Dr. Jero Whiting DO Primary Care Provider Active Dr. Lowell Caballero MD Emergency Provider Active Learning Support Services Director Relationship Specialty Start Date End Date Jero Whiting DO PCP - General 11/05/09 Team Status: Active Member Role/Relationship Status Dates Dr. Jero Whiting DO Primary Care Provider Active Team Status: Active Member Role/Relationship Status Dates Dr. Jero Whiting DO Primary Care Provider Active Start: December 02, 2024 Dr. Jero Whiting DO Referring Provider Active Start: December 02, 2024 BRIA Andrews Attending Provider Active Star t: December 02, 2024 Team Status: Inactive Member Role/Relationship Status Dates Dr. Jero Whiting DO Primary Care Provider Active Start: December 02, 2024 End: December 02, 2024 Dr. Boom Son MD Attending Provider Active S tart: December 02, 2024 End: December 02, 2024 Team Status: Inactive Member Role/Relationship Status Dates Dr. Jero Whiting DO Primary Care Provider Active Start: December 02, 2024 End: December 02, 2024 Dr. Jero Whiting DO Referring Provider Active Start: December 02, 2024 End: December 02, 2024 BRIA Andrews Attending Provider Active Star t: December 02, 2024 End: December 02, 2024 Goals (unrecognized section and content) Goals may be documented in a n alternate section FOR RECORDS PERTAINING TO PATIENTS WHO ARE OR HAVE BEEN ENROLLED IN A CHEMICAL DEPENDENCY/SUBSTANCEABUSE PROGRAM, SOME INFORMATION MAY BE OMITTED. This clinical summary was aggregated from multiple sources. Caution should be exercised in using it in the provision of clinical care. This summary normalizes information from multiple sources, and as a consequence, information in this document may materially change the coding, format and clinical context of patient data. In addition, data may be omitted in some cases. CLINICAL DECISIONS SHOULD BE BASED ON THE PRIMARY CLINICAL RECORDS. [employer] provides no warranty or guarantee of the accuracy or completeness of information in this document.
[2024-12-08 13:31] VITALS: BMI 26.6
[2024-12-08 13:35] VITALS: BP 153/94; PULSE 108; RESP 18; TEMP 36.6; O2SAT 99
== END 2024-12-08 13:53 | disposition home or self-care (01) ==
PROVIDERS: Emergency Provider Emergency Medicine; PCP Nurse Practitioner Family; Visit Provider Emergency Medicine
DX: R29.898 Other symptoms and signs involving the musculoskeletal system (principal); R07.89 Other chest pain; Z87.891 Personal history of nicotine dependence; K21.9 Gastro-esophageal reflux disease without esophagitis; R93.7 Abnormal findings on diagnostic imaging of other parts of musculoskeletal system; W18.2XXA Fall in (into) shower or empty bathtub, initial encounter; R29.6 Repeated falls; Z91.81 History of falling
CPT/HCPCS: 71101; 72131; 73502; 73590; 73610; 73630; 96372; 99282

== ENCOUNTER → 2024-12-20 | Outpatient (CLI) | payer MEDICARE, SELFPAY ==
--- NOTE | 2024-12-20 11:09 | MRI_ITS ---
PROCEDURE: SPINE LUMBAR W/WO CONTRAST 12/20/2024 REASON FOR EXAM: GROIN PAIN,HX OF FUSION, SEVERE LOW BACK PAIN TECHNIQUE: Procedure Code: [id number] Modality: MR Procedure: SPINE LUMBAR W/WO CONTRAST Multiplanar and multisequence images were obtained without and with intravenous gadolinium-based contrast administration. CONTRAST: Deisy scan VOLUME: 15 ML FINDINGS: Anterior fusion at L5-S1. Interbody fusion at L4-5. Posterior pedicle screws at L3, L4 and L5. Normal conus. No retroperitoneal mass. At T12-L1, concentric annular bulging with minimal canal narrowing. At L1-2, dorsal decompression without recurrent spinal stenosis. Small central protrusion is present without nerve root impingement. At L2-3 decompression without recurrent pathology. At L3-4 posterior lumbar interbody fusion without recurrent central or foraminal compromise. At L4-5, dorsal decompression without recurrent central stenosis. Mild inferior foraminal narrowing on both sides At L5-S1 grade 1 subluxation and posterior and anterior fusion. Neural foramina are not well seen but there is a concern for asymmetric severe narrowing of the right L5 neural foramen. On postcontrast images, there is no pathologic enhancement. There is no evidence for discitis or osteomyelitis. MRI/Spine Lumbar W/WO Contrast IMPRESSION: Extensive prior fusion with grade 1 subluxation of L5 upon S1 and potential rig ht L5 foraminal nerve impingement. Negative for significant upper and mid lumbar spinal stenosis. Reading [facility]
== END | disposition home or self-care (01) ==
LOC: MRI 11:05
PROVIDERS: PCP Nurse Practitioner Family; Referring Provider Student in an Organized Health Care Education/Training Program; Visit Provider Student in an Organized Health Care Education/Training Program
DX: M48.061 Spinal stenosis, lumbar region without neurogenic claudication (principal); M48.062 Spinal stenosis, lumbar region with neurogenic claudication; M54.16 Radiculopathy, lumbar region; Z98.1 Arthrodesis status; M51.369 Other intervertebral disc degeneration, lumbar region without mention of lumbar back pain or lower extremity pain
CPT/HCPCS: 72158; A9575; A4216